=== PATIENT | female | born 2000 | race Caucasian/White ===

== ENCOUNTER 2024-03-28 12:55 | Inpatient (IN) | payer BC, SELFPAY ==
[2024-03-28] VITALS (32 sets, daily range): BP systolic 84–138; BP diastolic 44–69; PULSE 72–102; RESP 14–20; TEMP 36.5–36.6; O2SAT 94–100; BMI 21.7
--- NOTE | ~2024-03-28 | XR_ITS ---
EXAMINATION: XR chest PICC line DATE: 04/01/2024 10:42 INDICATION: Central line placement. TECHNIQUE: A single frontal view of the chest was obtained. COMPARISON: None. FINDINGS: There is no pneumonia, pleural effusion, or pneumothorax. The heart size is normal. A left upper extremity peripherally inserted central venous catheter (PICC) is seen with tip in the proximal right atrium. IMPRESSION: 1. PICC tip in the proximal right atrium. Reviewed, dictated and finalized at location E.
--- NOTE | ~2024-03-28 | XR_ITS ---
EXAMINATION: XR chest PICC line DATE: 04/01/2024 10:42 INDICATION: Central line tip adjustment. TECHNIQUE: A single frontal view of the chest was obtained. COMPARISON: Chest single view at 10:09 AM FINDINGS: There is no pneumonia, pleural effusion, or pneumothorax. The heart size is normal. A left upper extremity peripherally inserted central venous catheter (PICC) is seen with tip at the superior cavoatrial junction. IMPRESSION: 1. PICC tip at the superior cavoatrial junction. Reviewed, dictated and finalized at location E.
--- NOTE | ~2024-03-28 | US_ITS ---
EXAMINATION: US right upper quadrant DATE: 03/31/2024 08:05 INDICATION: Abnormal liver function tests. TECHNIQUE: Multiple grayscale and Doppler ultrasound images of the abdomen were obtained. COMPARISON: None FINDINGS: The visualized portions of the head, body, and tail of the pancreas are normal. Abdominal a najma is normal in caliber. There is diffuse hepatic steatosis. There is normal flow in main portal ve in. The gallbladder is normal in size. No gallstones or gallbladder wall thickening. There is no sono graphic Altamirano's sign. The common duct is normal and measures 2 mm. IMPRESSION: 1. Diffuse hepatic steatosis. Reviewed, dictated and finalized at location E.
--- NOTE | 2024-03-28 13:04 | ECG_ITS ---
SEE SCANNED COPY FOR CONFIRMED REPORT MTDD
--- NOTE | 2024-03-28 13:04 | ED.OVERDOSE ---
HPI - Overdose General Chief Complaint: Overdose Stated Complaint: Overdose History of Present Illness HPI Narrative: Patient is a 24-year-old female here after expressing suicidal thoughts and taking extra amounts of her medications. She notes that 4 hours ago, she took handfuls of her lamictal. She takes 200 mg tablets, last filled on 02/10/24. She is unsure of how many of these tablets she took. She also believes she may have taken extra seroquel. She is prescribed both 200 mg tablets as well as 25 mg tablets, she contradicts herself on which doses she took extra of and how many of them she may have taken. She states that she has been having nightmares in which she is in a coma and these tend to make her have suicidal thoughts. She adamantly denies attempting to kill herself today but she states that life is overwhelming and wanted to go to sleep ?for a while ?. She does note a prior suicide attempt in the past and will not disclose which facility she was placed in at that time. States she has not want to be placed in a psychiatric facility. On EMS arrival dad had disclosed that she was saying suicidal statements and she informed them that she took excessive amounts of her medications. Related Data Allergies Allergy/AdvReac Type Severity Reaction Status Date / Time Sulfa (Sulfonamide AdvReac Unknown Verified 03/28/24 16:22 Antibiotics) vancomycin AdvReac Other Verified 03/28/24 16:22 Review of Systems Review of Systems: All systems reviewed & are unremarkable except as noted in HPI and below Exam Narrative: GENERAL: Well-appearing, well-nourished, and in no acute distress. HEAD: Normocephalic, atraumatic. EYES: PERRLA and EOMI. ENT: Nares clear. Mucous membranes moist. NECK: Supple. CHEST: Clear to auscultation. No respiratory distress. HEART: Regular rate and rhythm. Normal peripheral pulses. ABDOMEN: Soft, nontender, nondistended. Bowel sounds slightly hypoactive. EXTREMITIES: Normal range of motion. No edema. SKIN: Warm, dry, no rash. NEURO: Appears to be drowsy but easily arousable and answers questions. No ocular clonus, no clonus of upper or lower extremities. No focal deficits. Alert and oriented x3. PSYCH: Normal mood and affect. Course Course Emergency Course: Patient seen evaluated on EMS arrival, she is here after overdosing on Seroquel and Lamictal. Will do workup for overdose including blood gas, EKG, basic lab work. Patient placed on telemetry. Lab work and imaging reviewed, CBC unremarkable, PT, PTT normal. Electrolytes grossly normal. Lactic mildly elevated at 2.7. Normal LFTs. TSH normal. UA negative. Salicylates normal, acetaminophen level 134. This is suspected to be a 4 hour draw, just below toxic levels requiring NAC. Will touch base with poison center. 8 hour level ordered. COVID, influenza, RSV negative. Repeat tylenol level at 7.5-8 hrs 351. Will start NAC. Spoke with Dr. Cline, advises she is stable for stepdown, will discuss with hospitalist service regarding admission. Spoke with Marcie from hospitalist service who accepts patient for admission. Vital Signs Vital signs: Vital Signs Pulse Rate 77 03/28/24 13:15 Respiratory Rate 17 03/28/24 13:15 Blood Pressure 87/56 L 03/28/24 13:15 Pulse Oximetry 97 03/28/24 13:15 Temperature 97.8 F 03/28/24 13:22 Pulse Rate 81 03/28/24 17:30 Respiratory Rate 17 03/28/24 17:30 Blood Pressure 129/61 03/28/24 17:30 Pulse Oximetry 96 03/28/24 17:30 Oxygen Delivery Room Air 03/28/24 13:44 MDM - Overdose Lab Data 03/28/24 13:41 03/28/24 13:40 Labs: Lab Results 03/28/24 03/28/24 03/28/24 Range/Units 13:40 13:41 16:17 WBC 8.1 (4.5-10.0) K/mm3 RBC 3.93 L (4.2-5.4) M/mm3 Hgb 12.4 (12.0-15.0) g/dL Hct 36.9 L (37.0-47.0) % MCV 93.9 (80-100) fl MCH 31.6 (26-34) pg MCHC 33.6 (32-36) g/dl RDW 14.6 H (11.5-14.5) % Plt Count
[2024-03-28 13:25] LABS: Fractional Inspired Oxygen 21 %; HCO3 VBG 20.5 mEq/l (24.0-30.0); PCO2 VBG 35.7 mmHg (42.0-48.0); PO2 VBG 61.5 mmHg (35.0-45.0); pH VBG 7.376 (7.300-7.400)
[2024-03-28 13:26] LABS: Device ROOM AIR
--- NOTE | 2024-03-28 13:46 | PC.NURSE ---
pt currently being uncooperative, unable to redirect. Pt has been educated on importance of keeping monitors on, and pt continues to take them off. Pt has been asked to keep arm straight for IV fluid administration and pt refuses.
[2024-03-28] MEDS: SODIUM CHLORIDE 0.9% IV 1,000 ML 999 ML IV CONT (13:49)
[2024-03-28 14:00] LABS: Basophils Absolute Auto 0.1 K/mm3 (0.0-0.1); Basophils Percent Auto 0.6 % (0.2-1.2); Eosinophils Percent Auto 0.2 % (0-4.4); Hematocrit 36.9 % (37.0-47.0); Hemoglobin 12.4 g/dL (12.0-15.0); Immature Granulocyte Absolute 0.02 K/mm3 (0.00-0.031); Immature Granulocyte Percent A 0.2 % (0-0.5); Lymphocytes Absolute Auto 0.95 K/mm3 (0.9-3.2); Lymphocytes Percent Auto 11.7 % (18.3-44.2); Mean Corpuscular HGB Conc 33.6 g/dl (32-36); Mean Corpuscular Hemoglobin 31.6 pg (26-34); Mean Corpuscular Volume 93.9 fl (80-100); Mean Platelet Volume 9.4 fl (7.4-10.4); Monocytes Absolute Auto 0.4 K/mm3 (0.1-0.6); Monocytes Percent Auto 4.6 % (2.6-8.5); Neutrophils Absolute Auto 6.7 K/mm3 (1.3-6.7); Neutrophils Percent Auto 82.7 % (45.5-73.1); Platelet Count Result 222 k/mm3 (150-375); Red Blood Count 3.93 M/mm3 (4.2-5.4); Red Cell Distribution Width 14.6 % (11.5-14.5); White Blood Count 8.1 K/mm3 (4.5-10.0)
--- NOTE | 2024-03-28 14:00 | PC.NURSE ---
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 Give IVF's.
[2024-03-28 14:04] LABS: Appearance Urine Clear (Clear); Bilirubin Urine Negative (Negative); Blood Urine Negative (Negative); Color Urine Yellow (Yellow); Glucose Urine UA Negative (Negative); Ketones Urine Negative (Negative); Leukocyte Esterase Ur Negative LEU/UL (Negative); Nitrate Urine Negative (Negative); Protein Urine Negative (Negative); Specific Grav Ur 1.009 (1.001-1.035); Urobilinogen Urine 0.2 mg/dL (<2.0)
[2024-03-28 14:10] LABS: INR 1.2; Partial Thromboplastin Time 23.4 Seconds (22.3-36.8); Prothrombin Time 15.7 Seconds (11.1-14.7)
[2024-03-28 14:13] LABS: Lactic Acid Reflex 2.7 mmol/L (0.7-2.0)
[2024-03-28 14:13] LABS: Alanine Aminotransferase 16 U/L (6-35); Albumin Level 4.3 g/dL (3.5-5.1); Alkaline Phosphatase 64 U/L (38-126); Anion Gap 13 mmol/L (4-12); Aspartate Amino Transferase 28 U/L (14-36); Bilirubin,Total 0.9 mg/dL (0.2-1.3); Blood Urea Nitrogen 13 mg/dL (7-17); Calcium 8.2 mg/dL (8.4-10.2); Carbon Dioxide 20 mmol/L (22-30); Chloride 107 mmol/L (98-107); Estimated CRCL calculation 61 ml/min; Estimated Glomerular Filt Rate > 60; Glucose 106 mg/dL (65-110); Magnesium 1.9 mg/dL (1.6-2.3); Potassium 3.6 mmol/L (3.4-5.0); Sodium 140 mmol/L (137-145)
[2024-03-28 14:19] LABS: Add Urine Microscopic? NO
[2024-03-28 14:22] LABS: Amphetamine Screen Urine Negative (Negative); Barbiturate Screen Urine Negative (Negative); Benzodiazepines Screen Urine Negative (Negative); Cannabinoid Screen Urine Positive (Negative); Cocaine Screen Urine Negative (Negative); Methadone Screen Urine Negative (Negative); Opiate Screen Urine Negative (Negative); Phencyclidine Screen Urine Negative (Negative)
[2024-03-28] MEDS: LORazepam INJ (*CRX) 2 MG/ML VIAL IV PUSH (14:36)
[2024-03-28 14:42] LABS: Influenza A QL RT-PCR Negative (Negative); Influenza B QL RT-PCR Negative (Negative); RSV RNA, RT-PCR Negative (Negative); SARS-CoV-2 RNA PCR Negative (Negative)
[2024-03-28 14:44] LABS: Thyroid Stimulating Hormone 0.977 uIU/mL (0.465-4.680)
--- NOTE | 2024-03-28 15:09 | PC.NURSE ---
Spoke to Poison control who states continue to monitor pt, add on salicylate, acetaminophen, and etoh levels to lab.
[2024-03-28 15:17] LABS: Acetaminophen 134 ug/mL (10-30); Ethanol 133 mg/dL (<10); Salicylate < 1.0 mg/dL (2-20)
--- NOTE | 2024-03-28 16:23 | PC.NURSE ---
Spoke with Poison control , Uma about the acetaminophen level. 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 Get another acetaminophen level at the 8 hour alec. 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 Case Number is [id number]
[2024-03-28 16:58] LABS: Reflex Lactic Acid Yes or No Add Lactic
[2024-03-28 16:58] LABS: Acetaminophen 351 ug/mL (10-30)
[2024-03-28 17:27] LABS: Creatine Kinase 80 U/L (30-135)
[2024-03-28] MEDS: WATER IVPB ×2 (17:31→18:37)
[2024-03-28] MEDS: ACETYLCYSTEINE IVPB ×2 (17:31→18:37)
[2024-03-28] MEDS: DEXTROSE 5% IVPB ×2 (17:31→18:37)
[2024-03-28 17:43] LABS: Lactic Acid 1.9 mmol/L (0.7-2.0)
--- NOTE | 2024-03-28 18:46 | PC.NURSE ---
[id number] spoke with Uma from poison control who states they recommend rechecking acetaminophen, pt/inr/ptt, AST, and ALT levels q6-8. they also recommend checking an acetaminophen level 2 hours prior to the last acetylcysteine bag ending to know if further treatment is needed. The recommended dosage for her current acetaminophen level is 12.5 mg/kg.
--- NOTE | 2024-03-28 19:14 | PC.NURSE ---
[id number] attempted to call report [id number] report called to night rn
--- NOTE | 2024-03-28 19:45 | ADMIMU ---
This patient, Jolanta Yen, was admitted to IMU status, and placed in Intensive Care Unit-3. Patient/family oriented to hospital policies and general routines including ID bracelet, bed and alarms, visiting hours, pain management, procedures, bathroom and other care routines, personal items, smoking policy, room service/diet, and visiting hours. Valuables list has been completed. Information on how to activate the Rapid Response Team has been discussed. Patient/Family are encouraged to report perceived risks to care and to ask questions if they do not understand what they are told or what they should do. pT PLACED ON SUICIDE PRECAUTIONS SITTER AT BEDSIDE
--- NOTE | 2024-03-28 22:14 | PM.IMHP ---
H&P: HPI History of Present Illness Date/Time: 03/28/24 22:14 Chief Complaint: drug overdose Narrative: patient is a 24-year-old female who expresses suicidal thoughts ended up taking a handful of Lamictal and Seroquel and Tylenol patient was prescribed both these medications patient not able to give us any detailed history most of the history is obtained through the medical records on the time of examining the patient patient is very sleepy is on suicidal alert with a 24 hour sitter Review of Systems Review of Systems: All systems reviewed & are unremarkable except as noted in HPI and below PMFSH Social History Social History Smoking status: Never smoker Alcohol intake: current Substance use: current Substance use type: marijuana Spiritual care concerns: No Meds Home Medications and Allergies Home Medications Medication Instructions Recorded Confirmed Type clonidine HCl 0.1 mg tablet 0.1 mg PO BID 03/28/24 03/28/24 History escitalopram oxalate 5 mg tablet 5 mg PO DAILY 03/28/24 03/28/24 History lamotrigine 200 mg tablet 200 mg PO BID 03/28/24 03/28/24 History quetiapine 200 mg tablet 200 mg PO HS 03/28/24 03/28/24 History Allergies Allergy/AdvReac Type Severity Reaction Status Date / Time Sulfa (Sulfonamide AdvReac Unknown Verified 03/28/24 16:22 Antibiotics) vancomycin AdvReac Other Verified 03/28/24 16:22 Vital Signs Vital Signs - 24 hr 03/28/24 13:22 03/28/24 13:41 03/28/24 13:44 Temperature 36.6 C Pulse Rate 83 Respiratory Rate 14 16 Blood Pressure 84/69 L Pulse Oximetry 100 Oxygen Delivery Room Air Room Air 03/28/24 14:01 03/28/24 13:15 03/28/24 13:45 Temperature Pulse Rate 102 H 77 89 Respiratory Rate 18 17 20 Blood Pressure 97/52 L 87/56 L 115/62 Pulse Oximetry 96 97 97 Oxygen Delivery 03/28/24 14:00 03/28/24 14:15 03/28/24 14:30 Temperature Pulse Rate 91 86 81 Respiratory Rate 18 19 19 Blood Pressure 97/52 L 121/48 L 106/44 L Pulse Oximetry 96 96 96 Oxygen Delivery 03/28/24 14:45 03/28/24 15:10 03/28/24 15:33 Temperature Pulse Rate 83 77 83 Respiratory Rate 19 17 16 Blood Pressure 105/47 L Pulse Oximetry 98 95 95 Oxygen Delivery 03/28/24 15:50 03/28/24 16:00 03/28/24 16:15 Temperature Pulse Rate 79 80 80 Respiratory Rate 16 16 16 Blood Pressure 107/46 L 112/52 L Pulse Oximetry 95 95 95 Oxygen Delivery 03/28/24 16:30 03/28/24 16:45 03/28/24 17:00 Temperature Pulse Rate 83 81 85 Respiratory Rate 16 17 16 Blood Pressure 117/53 L 123/53 L 121/54 L Pulse Oximetry 95 96 96 Oxygen Delivery 03/28/24 17:15 03/28/24 17:30 03/28/24 16:01 Temperature Pulse Rate 80 81 80 Respiratory Rate 17 17 17 Blood Pressure 127/54 L 129/61 107/46 L Pulse Oximetry 96 96 95 Oxygen Delivery 03/28/24 16:16 03/28/24 16:31 03/28/24 16:55 Temperature Pulse Rate 80 81 81 Respiratory Rate 16 16 16 Blood Pressure 112/52 L 117/53 L Pulse Oximetry 95 96 96 Oxygen Delivery 03/28/24 17:00 03/28/24 17:01 03/28/24 17:47 Temperature Pulse Rate 81 80 78 Respiratory Rate 16 16 16 Blood Pressure 121/54 L 120/54 L Pulse Oximetry 96 96 99 Oxygen Delivery 03/28/24 18:00 03/28/24 18:15 03/28/24 18:30 Temperature Pulse Rate 77 81 82 Respiratory Rate 16 16 16 Blood Pressure 121/57 L 132/62 138/69 Pulse Oximetry 96 97 94 Oxygen Delivery 03/28/24 19:45 03/28/24 19:47 03/28/24 20:00 Temperature 36.5 C Pulse Rate 82 84 72 Respiratory Rate 16 16 Blood Pressure 94/46 L Pulse Oximetry 94 96 Oxygen Delivery Room Air 03/28/24 21:48 Temperature Pulse Rate 80 Respiratory Rate Blood Pressure Pulse Oximetry Oxygen Delivery Exam Narrative: GENERAL: Well appearing, no acute distress. very sleepy HEAD: Normocephalic, atraumatic. NECK: Supple. No adenopathy, no masses. RESPIRATORY: respirations nonlabored. , no rales, wheezing. CARDIOVASCULAR: Reg
[2024-03-29] VITALS (16 sets, daily range): BP systolic 89–128; BP diastolic 49–85; PULSE 62–89; RESP 12–22; TEMP 36.6–36.8; O2SAT 90–100
[2024-03-29 05:42] LABS: Hematocrit 36.1 % (37.0-47.0); Mean Corpuscular HGB Conc 33.2 g/dl (32-36); Mean Corpuscular Hemoglobin 31.4 pg (26-34); Mean Corpuscular Volume 94.5 fl (80-100); Mean Platelet Volume 8.9 fl (7.4-10.4); Platelet Count Result 179 k/mm3 (150-375); Red Blood Count 3.82 M/mm3 (4.2-5.4); Red Cell Distribution Width 14.5 % (11.5-14.5); White Blood Count 3.4 K/mm3 (4.5-10.0)
[2024-03-29 05:57] LABS: Alanine Aminotransferase 26 U/L (6-35); Albumin Level 3.7 g/dL (3.5-5.1); Alkaline Phosphatase 56 U/L (38-126); Anion Gap 7 mmol/L (4-12); Aspartate Amino Transferase 56 U/L (14-36); Bilirubin,Total 1.4 mg/dL (0.2-1.3); Blood Urea Nitrogen 7 mg/dL (7-17); Calcium 8.2 mg/dL (8.4-10.2); Carbon Dioxide 19 mmol/L (22-30); Chloride 108 mmol/L (98-107); Estimated CRCL calculation 97 ml/min; Estimated Glomerular Filt Rate > 60; Glucose 153 mg/dL (65-110); Potassium 3.3 mmol/L (3.4-5.0); Sodium 134 mmol/L (137-145)
[2024-03-29 06:01] LABS: Acetaminophen 207 ug/mL (10-30)
--- NOTE | 2024-03-29 13:25 | PM.IMPN ---
Progress Note: A&P Assessment and Plan (1) Acute drug overdose: Qualifiers: Encounter type: initial encounter Injury intent: intentional self-harm Qualified Code(s): T50.902A - Poisoning by unspecified drugs, medicaments and biological substances, intentional self-harm, initial encounter Code(s): T50.901A - Poisoning by unspecified drugs, medicaments and biological substances, accidental (unintentional), initial encounter Status: Acute Assessment and Plan: Patient overdosed with Lamictal, Seroquel and Tylenol. QTC was 451. EKG overall was normal. Repeat EKG. Continue close monitoring on telemetry. Crisis evaluation once patient is cleared medically (2) Overdose on Tylenol: Qualifiers: Encounter type: initial encounter Injury intent: intentional self-harm Qualified Code(s): T39.1X2A - Poisoning by 4-Aminophenol derivatives, intentional self-harm, initial encounter Code(s): T39.1X1A - Poisoning by 4-Aminophenol derivatives, accidental (unintentional), initial encounter Status: Acute Assessment and Plan: Patient with Tylenol overdose. Patient started on acetylcysteine. Acetaminophen level has dropped to 200. Continue Tylenol overdose protocol. Repeat LFTs. (3) Seizure: Code(s): R56.9 - Unspecified convulsions Status: Acute Assessment and Plan: Patient with seizure history on Lamictal. This is currently on hold due to recent overdose. Seizure precautions. 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 No residual problem except did develop seizures. Patient graduated from high school and is currently taking undergraduate classes. She was living alone up until December and has since moved in with her father. Plan Code status - full DVT prophylaxis - SCDs Subjective Date/time seen: 03/29/24 13:25 Interval history: 24yo female here for intentional drug overdose with Seroquel, Lamictal and Tylenol. She has been up to the bathroom and less unsteady today per RN. She admits to overdosing leona suicide attempt. She has had suicidal thoughts in the past but states this is the first time she has acted (but notes state she had a suicide attempt in the past. She feels safe at home. Back at home with dad since December. Dad had recent divorce. Right arm fracture related to her falling down the stairs. Hx of [facility] hospitalization for suicide ideation. PMH: at age 10 had hemorrhagic CVA from brain AVM, seizures, depression, PSH: craniotomy SH: marijuana but no other drug use, no tobacco. Exam Narrative: AF 98.0 109/81 62 14 98% ra Gen - NARD HEENT - nystagmus noted. Chest - CTA bilaterally, nml RR CV - RRR S1/S2 Abd - Soft, NT/ND, Positive BS Ext - No pedal edema. right arm in cast. Neuro - Alert and oriented. Nonfocal exam. Psych - Nml mood and affect. unkempt. good eye contact Skin - Warm and dry. multiple bruising noted UE/LE Objective Data Vital Signs Vital Signs: Vital Signs - 24 hr 03/28/24 13:41 03/28/24 13:44 03/28/24 14:01 Temperature Pulse Rate 102 H Respiratory Rate 16 18 Blood Pressure 97/52 L Pulse Oximetry 96 Oxygen Delivery Room Air Oxygen Flow Rate 03/28/24 13:45 03/28/24 14:00 03/28/24 14:15 Temperature Pulse Rate 89 91 86 Respiratory Rate 20 18 19 Blood Pressure 115/62 97/52 L 121/48 L Pulse Oximetry 97 96 96 Oxygen Delivery Oxygen Flow Rate 03/28/24 14:30 03/28/24 14:45 03/28/24 15:10 Temperature Pulse Rate 81 83 77 Respiratory Rate 19 19 17 Blood Pressure 106/44 L 105/47 L Pulse Oximetry 96 98 95 Oxygen Delivery Oxygen Flow Rat
--- NOTE | 2024-03-29 13:54 | ECG_ITS ---
SEE SCANNED COPY FOR CONFIRMED REPORT MTDD
[2024-03-29 15:58] LABS: Acetaminophen 71 ug/mL (10-30)
[2024-03-29 16:08] LABS: Alanine Aminotransferase 1061 U/L (6-35); Alkaline Phosphatase 79 U/L (38-126); Anion Gap 7 mmol/L (4-12); Bilirubin Direct 0.1 mg/dL (0-0.3); Bilirubin,Total 3.3 mg/dL (0.2-1.3); Blood Urea Nitrogen 6 mg/dL (7-17); Calcium 8.8 mg/dL (8.4-10.2); Carbon Dioxide 19 mmol/L (22-30); Chloride 109 mmol/L (98-107); Estimated CRCL calculation 75 ml/min; Estimated Glomerular Filt Rate > 60; Glucose 104 mg/dL (65-110); Potassium 3.4 mmol/L (3.4-5.0); Sodium 135 mmol/L (137-145)
[2024-03-29 16:35] LABS: Aspartate Amino Transferase 2778 U/L (14-36)
--- NOTE | 2024-03-29 18:37 | PC.NURSE ---
discussed with poison control lab results and was told to start the 4rth bag of acetylcysteine and continue it until poison control states to stop and conitnue labs tylenol, cmp and hep panel q12hrs until cleard by poison control
[2024-03-29 22:40] LABS: Hematocrit 41.2 % (37.0-47.0); Hemoglobin 13.8 g/dL (12.0-15.0); Mean Corpuscular HGB Conc 33.5 g/dl (32-36); Mean Corpuscular Hemoglobin 31.4 pg (26-34); Mean Corpuscular Volume 93.8 fl (80-100); Mean Platelet Volume 9.4 fl (7.4-10.4); Platelet Count Result 219 k/mm3 (150-375); Red Blood Count 4.39 M/mm3 (4.2-5.4); Red Cell Distribution Width 14.2 % (11.5-14.5); White Blood Count 5.7 K/mm3 (4.5-10.0)
[2024-03-29 23:02] LABS: Albumin Level 4.3 g/dL (3.5-5.1); Alkaline Phosphatase 123 U/L (38-126); Anion Gap 10 mmol/L (4-12); Blood Urea Nitrogen 7 mg/dL (7-17); Carbon Dioxide 20 mmol/L (22-30); Chloride 108 mmol/L (98-107); Estimated CRCL calculation 75 ml/min; Estimated Glomerular Filt Rate > 60; Glucose 108 mg/dL (65-110); Potassium 3.4 mmol/L (3.4-5.0); Sodium 138 mmol/L (137-145)
[2024-03-29 23:04] LABS: Alanine Aminotransferase 1393 U/L (6-35)
[2024-03-29 23:11] LABS: Aspartate Amino Transferase 2849 U/L (14-36)
[2024-03-30] VITALS (12 sets, daily range): BP systolic 118–128; BP diastolic 68–87; PULSE 63–94; RESP 16; TEMP 36.6–36.8; O2SAT 97–99
[2024-03-30 04:12] LABS: Acetaminophen 18 ug/mL (10-30)
[2024-03-30 04:23] LABS: Albumin Level 4.4 g/dL (3.5-5.1); Alkaline Phosphatase 221 U/L (38-126); Anion Gap 8 mmol/L (4-12); Bilirubin Direct 0.9 mg/dL (0-0.3); Bilirubin,Total 4.1 mg/dL (0.2-1.3); Blood Urea Nitrogen 8 mg/dL (7-17); Carbon Dioxide 22 mmol/L (22-30); Chloride 107 mmol/L (98-107); Estimated CRCL calculation 75 ml/min; Estimated Glomerular Filt Rate > 60; Glucose 79 mg/dL (65-110); Potassium 3.7 mmol/L (3.4-5.0); Sodium 137 mmol/L (137-145)
[2024-03-30 04:31] LABS: Alanine Aminotransferase 1525 U/L (6-35); Aspartate Amino Transferase 2681 U/L (14-36)
--- NOTE | 2024-03-30 08:55 | PM.IMPN ---
Progress Note: A&P Assessment and Plan (1) Acute drug overdose: Qualifiers: Encounter type: initial encounter Injury intent: intentional self-harm Qualified Code(s): T50.902A - Poisoning by unspecified drugs, medicaments and biological substances, intentional self-harm, initial encounter Code(s): T50.901A - Poisoning by unspecified drugs, medicaments and biological substances, accidental (unintentional), initial encounter Status: Acute Assessment and Plan: Patient overdosed with Lamictal, Seroquel and Tylenol. QTC was 451. EKG overall was normal. Repeat EKG showing QTc 408. Continue close monitoring on telemetry. Crisis evaluation once patient is cleared medically (2) Overdose on Tylenol: Qualifiers: Encounter type: initial encounter Injury intent: intentional self-harm Qualified Code(s): T39.1X2A - Poisoning by 4-Aminophenol derivatives, intentional self-harm, initial encounter Code(s): T39.1X1A - Poisoning by 4-Aminophenol derivatives, accidental (unintentional), initial encounter Status: Acute Assessment and Plan: Patient with Tylenol overdose. Patient started on acetylcysteine. Acetaminophen level was up to 351 but has dropped to 18 now LFTs markedly elevated last night and this morning felt related to the Tylenol AST peaked at 2850 but better today. ALT still climbing to 1525. TBili 4.1 today. Continue Tylenol overdose protocol. Monitor LFTs. GI consult. Check hepatitis panel and RUQ for completeness. (3) Elevated LFTs: Code(s): R79.89 - Other specified abnormal findings of blood chemistry Status: Acute Assessment and Plan: As above (4) Seizure: Code(s): R56.9 - Unspecified convulsions Status: Acute Assessment and Plan: Patient with seizure history on Lamictal. This is currently on hold due to recent overdose. Seizure precautions. 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 No residual problem except did develop seizures. Patient graduated from high school and is currently taking undergraduate classes. She was living alone up until December and has since moved in with her father. Plan Code status - full DVT prophylaxis - SCDs Subjective Date/time seen: 03/30/24 08:55 Interval history: 24yo female here for intentional drug overdose with Seroquel, Lamictal and Tylenol. Nausea with dry heaves started last night and this morning 'related to anxiety'. She takes Zofran at home for this. no CP, SOB or abd pain. +BMs and normal color. no hx of hepatitis. She states that she did a 'Pros and Cons' list to determine if she should take her life and feels there are more 'Pros' if she were . Exam Narrative: AF 97.9 126/85 67 16 99% ra Gen - NARD Chest - CTA bilaterally, nml RR CV - RRR S1/S2. Tele showing no significant dysrhythmia Abd - Soft, RUQ tenderness. +BS Ext - No pedal edema. right arm in cast. Neuro - Alert and oriented. Nonfocal exam. normal sensation to the right fingers. 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 unkempt. good eye contact. more appropriate today. Skin - Warm and dry. multiple bruising noted UE/LE Objective Data Vital Signs Vital Signs: Vital Signs - 24 hr 03/29/24 10:00 03/29/24 12:00 03/29/24 12:00 Temperature 98 F Pulse Rate 69 62 62 Respiratory Rate 14 Blood Pressure 109/81 Pulse Oximetry 98 Oxygen Delivery 03/29/24 12:00 03/29/24 14:00 03/29/24 16:00 Temperature Pulse Rate 62 68 69 Respiratory Rate 14 Blood Pressure Pulse Oximetry 98 Oxygen Delivery Room Air 03/29/24 16:00 03/29/24 16:00
--- NOTE | 2024-03-30 13:48 | WPDGICN ---
Assessment and Plan Assessment and plan (1) Overdose on Tylenol: Qualifiers: Encounter type: initial encounter Injury intent: intentional self-harm Qualified Code(s): T39.1X2A - Poisoning by 4-Aminophenol derivatives, intentional self-harm, initial encounter Code(s): T39.1X1A - Poisoning by 4-Aminophenol derivatives, accidental (unintentional), initial encounter Status: Acute Assessment and Plan: she took some of her psych medications but also over 6000mg of acetaminophen control poison was called, continue with mucomyst- recommend to keep mucomyst until we see downtrending liver enzymes. Will repeat INR and also get ammonia lever. If liver enzymes continue to go up or she develops coagulopathy or confusion then will need to transfer to tertiary hospital with hepatology service continue suicidal precaution (2) Acute drug overdose: Qualifiers: Encounter type: initial encounter Injury intent: intentional self-harm Qualified Code(s): T50.902A - Poisoning by unspecified drugs, medicaments and biological substances, intentional self-harm, initial encounter Code(s): T50.901A - Poisoning by unspecified drugs, medicaments and biological substances, accidental (unintentional), initial encounter Status: Acute (3) Liver failure, acute: Code(s): K72.00 - Acute and subacute hepatic failure without coma Status: Acute Assessment and Plan: due to tylenol overdose monitor liver enzymes and inr get hepatitis panel and liver ultrasound (4) Suicidal overdose: Code(s): T50.902A - Poisoning by unspecified drugs, medicaments and biological substances, intentional self-harm, initial encounter Status: Acute (5) Elevated LFTs: Code(s): R79.89 - Other specified abnormal findings of blood chemistry Status: Acute GI Consult Note Consult date/time: 03/30/24 13:48 Reason for consult: acute liver failure, acetaminophen overdose HPI: Jolatna Yen is a 24 year old female here after expressing suicidal thoughts and taking extra amounts of her medications, at baseline she has mood disorder using lamictal and seroquel. She says that took handful of her medications then found by her dad who called ems and brought to hospital. She was not forthcoming about what she else she took initially but drug screening noted elevated acetaminophen level at 350, then she said that took at least 6000 mg of acetaminophen, admitted to ICU and started right away on iv mucomyst. She mentioned earlier to another staff that she has been having nightmares in which she is in a coma and these tend to make her have suicidal thoughts.?Liver enzymes have been trending up with transaminases now ~ 2000, bili 4. She is nauseous but denies pain, no confusion. She is in suicidal precaution, never tried to commit suicide before. Review of Systems Constitutional: Constitutional: Denies chills Eyes: Eyes: Denies blurry vision ENT: Reports Normal hearing present Cardiovascular: Cardiovascular: Denies chest pain Respiratory: Respiratory: Denies cough Gastrointestinal: Gastrointestinal: Reports nausea Genitourinary: Genitourinary: Denies hematuria Musculoskeletal: Musculoskeletal: Denies arthralgias Integumentary/Breasts: Skin/Breast: Denies rash Neurologic: Denies Abnormal speech present Psychiatric: Psychiatric: Reports depression and Reports suicidal ideation [facility] Past Medical History Medical History (Updated 03/30/24 @ 13:55 by Sky North MD) Liver failure, acute Suicidal overdose Social History Social History Smoking status: Never smoker Alcohol intake: current Substance use: current Substance use type: marijuana Spiritual care concerns: No Meds Home Medications and Allergies Home Medications Medication Instructions Recorded Confirmed Type clonidine HCl 0.1 mg tablet 0.1 mg PO BID 03/28/24 03/28/24 History escitalopram oxalate
[2024-03-30 16:01] LABS: Albumin Level 4.6 g/dL (3.5-5.1); Alkaline Phosphatase 154 U/L (38-126); Anion Gap 8 mmol/L (4-12); Bilirubin Direct 0.4 mg/dL (0-0.3); Bilirubin,Total 4.6 mg/dL (0.2-1.3); Blood Urea Nitrogen 4 mg/dL (7-17); Calcium 8.8 mg/dL (8.4-10.2); Carbon Dioxide 22 mmol/L (22-30); Chloride 106 mmol/L (98-107); Estimated CRCL calculation 97 ml/min; Estimated Glomerular Filt Rate > 60; Glucose 103 mg/dL (65-110); Potassium 3.1 mmol/L (3.4-5.0); Sodium 136 mmol/L (137-145)
[2024-03-30 16:10] LABS: Alanine Aminotransferase 1696 U/L (6-35); Aspartate Amino Transferase 2132 U/L (14-36)
[2024-03-30 16:14] LABS: Hepatitis B Surface Antigen Negative (Negative)
[2024-03-30 16:19] LABS: HAV RESULT Negative (Negative); Hepatitis B Core IgM Result Negative (Negative)
[2024-03-30 16:31] LABS: Hepatitis C Virus Antibody Negative (Negative)
--- NOTE | 2024-03-30 16:49 | PC.NURSE ---
poison control talked to this nurse, stated for pt to stay on Acetylcysteine and obtain same labs in am and wait until poison control states to shut off gtt
[2024-03-30] MEDS: POTASSIUM CHLORIDE 20 MEQ ER TABLET 40 MEQ PO (17:51)
[2024-03-30 21:16] LABS: Acetaminophen < 10 ug/mL (10-30)
[2024-03-30] MEDS: MELATONIN 3 MG TABLET PO (23:23)
[2024-03-31] VITALS (15 sets, daily range): BP systolic 114–142; BP diastolic 71–90; PULSE 73–112; RESP 16–20; TEMP 36.7–37; O2SAT 96–100
[2024-03-31 04:05] LABS: Basophils Percent Auto 0.5 % (0.2-1.2); Eosinophils Percent Auto 0.5 % (0-4.4); Hemoglobin 14.4 g/dL (12.0-15.0); Immature Granulocyte Absolute 0.01 K/mm3 (0.00-0.031); Immature Granulocyte Percent A 0.2 % (0-0.5); Lymphocytes Absolute Auto 0.67 K/mm3 (0.9-3.2); Lymphocytes Percent Auto 11.1 % (18.3-44.2); Mean Corpuscular HGB Conc 34.3 g/dl (32-36); Mean Corpuscular Hemoglobin 31.2 pg (26-34); Mean Corpuscular Volume 90.9 fl (80-100); Mean Platelet Volume 9.7 fl (7.4-10.4); Monocytes Absolute Auto 0.2 K/mm3 (0.1-0.6); Neutrophils Absolute Auto 5.1 K/mm3 (1.3-6.7); Neutrophils Percent Auto 84.7 % (45.5-73.1); Platelet Count Result 183 k/mm3 (150-375); Red Blood Count 4.62 M/mm3 (4.2-5.4); Red Cell Distribution Width 14.4 % (11.5-14.5)
[2024-03-31 04:17] LABS: INR 2.3; Prothrombin Time 26.9 Seconds (11.1-14.7)
[2024-03-31 04:18] LABS: Partial Thromboplastin Time 30.4 Seconds (22.3-36.8)
[2024-03-31] MEDS: ONDANSETRON INJ 4 MG/2 ML VIAL (04:20)
[2024-03-31 04:23] LABS: Acetaminophen < 10 ug/mL (10-30)
[2024-03-31 04:25] LABS: Ammonia 30 umol/L (9-30)
[2024-03-31 04:30] LABS: Alkaline Phosphatase 104 U/L (38-126); Anion Gap 7 mmol/L (4-12); Bilirubin Direct 0.2 mg/dL (0-0.3); Bilirubin Indirect 3.5 mg/dL (0-1.1); Bilirubin,Total 4.4 mg/dL (0.2-1.3); Blood Urea Nitrogen 3 mg/dL (7-17); Calcium 8.4 mg/dL (8.4-10.2); Carbon Dioxide 22 mmol/L (22-30); Chloride 106 mmol/L (98-107); Estimated CRCL calculation 97 ml/min; Estimated Glomerular Filt Rate > 60; Glucose 116 mg/dL (65-110); Magnesium 1.8 mg/dL (1.6-2.3); Potassium 3.4 mmol/L (3.4-5.0); Sodium 135 mmol/L (137-145)
[2024-03-31 05:08] LABS: Alanine Aminotransferase 3083 U/L (6-35)
[2024-03-31 05:12] LABS: Aspartate Amino Transferase 5477 U/L (14-36)
--- NOTE | 2024-03-31 08:15 | PM.IMPN ---
Progress Note: A&P Assessment and Plan (1) Overdose on Tylenol: Qualifiers: Encounter type: initial encounter Injury intent: intentional self-harm Qualified Code(s): T39.1X2A - Poisoning by 4-Aminophenol derivatives, intentional self-harm, initial encounter Code(s): T39.1X1A - Poisoning by 4-Aminophenol derivatives, accidental (unintentional), initial encounter Status: Acute Assessment and Plan: Patient with Tylenol overdose. Patient started on acetylcysteine on 03/28 at 1730. Acetaminophen level was up to 351 (03/28 at 1617) but has dropped to <10 AST peaked at 2850 but began to trend down. ALT and TBili elevated and continued to climb. Fractioned bili showing almost all indirect Poison control contacted multiple times and we continued her on acetylcysteine GI consulted and appreciate their input. Hepatitis panel negative. RUQ diffuse hepatic steatosis. Liver enzymes much worse today with AST 5477 and ALT 3083. Tbili slightly better at 4.4 (indirect 3.5). Ammonia 30 and INR 2.3. Continue acetylcysteine. Plan for transfer to tertiary center. Patient made aware and all questions answered. Discussed with father by phone with patient's permission and all questions answered. (2) Acute drug overdose: Qualifiers: Encounter type: initial encounter Injury intent: intentional self-harm Qualified Code(s): T50.902A - Poisoning by unspecified drugs, medicaments and biological substances, intentional self-harm, initial encounter Code(s): T50.901A - Poisoning by unspecified drugs, medicaments and biological substances, accidental (unintentional), initial encounter Status: Acute Assessment and Plan: Patient overdosed with Lamictal, Seroquel and Tylenol around 9AM 03/28. Unclear on how much she took with contradictory amounts. QTC was 451. EKG overall was normal. Repeat EKG (03/29) showing QTc 408. Continue close monitoring on telemetry. (3) Liver failure, acute: Code(s): K72.00 - Acute and subacute hepatic failure without coma Status: Acute Assessment and Plan: As above (4) Seizure: Code(s): R56.9 - Unspecified convulsions Status: Acute Assessment and Plan: Patient with seizure history on Lamictal. This is currently on hold due to recent overdose. Seizure precautions. 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 No residual problem except did develop seizures. Patient graduated from high school and is currently taking undergraduate classes. She was living alone up until December and has since moved in with her father. (6) Suicidal overdose: Code(s): T50.902A - Poisoning by unspecified drugs, medicaments and biological substances, intentional self-harm, initial encounter Status: Acute Assessment and Plan: As above Crisis evaluation once patient is cleared medically Plan Code status - full DVT prophylaxis - SCDs Subjective Date/time seen: 03/31/24 08:15 Interval history: 24yo female here for intentional drug overdose with Seroquel, Lamictal and Tylenol. Some nausea overnight but not this morning. No further abdominal pain but some cramping related to her period. No CP or SOB. Tolerating oral intake but not eating much. Exam Narrative: AF 97.9 126/85 67 16 99% ra Gen - NARD Chest - CTA bilaterally, nml RR CV - RRR S1/S2. Tele showing no significant dysrhythmia Abd - Soft, NT/ND. +BS Ext - No pedal edema. right arm in cast. Neuro - Alert and oriented. Nonfocal exam. Psych - Nml mood and affect. Skin - Warm and dry. Not jaundiced Objective Data Vital Signs
--- NOTE | 2024-03-31 11:45 | WPDGIPROGNO ---
Progress Note: A&P Assessment and Plan (1) Liver failure, acute: Code(s): K72.00 - Acute and subacute hepatic failure without coma Status: Acute Assessment and Plan: here with acute liver damage from tylenol overdose recommend to continue iv mucomyst until bilirubin and INR improves [facility] already accepted transfer, will need hepatology service in case worsening liver failure that requires liver transplant (2) Overdose on Tylenol: Qualifiers: Encounter type: initial encounter Injury intent: intentional self-harm Qualified Code(s): T39.1X2A - Poisoning by 4-Aminophenol derivatives, intentional self-harm, initial encounter Code(s): T39.1X1A - Poisoning by 4-Aminophenol derivatives, accidental (unintentional), initial encounter Status: Acute (3) Elevated LFTs: Code(s): R79.89 - Other specified abnormal findings of blood chemistry Status: Acute Assessment and Plan: monitor with daily inr and ammonia level (4) Suicidal overdose: Code(s): T50.902A - Poisoning by unspecified drugs, medicaments and biological substances, intentional self-harm, initial encounter Status: Acute (5) Elevated INR: Code(s): R79.1 - Abnormal coagulation profile Status: Acute Subjective Date/time seen: 03/31/24 11:45 Interval history: she is very anxious after realized that she has liver impairment no abdominal pain, no confusion Review of Systems Review of Systems: All systems reviewed & are unremarkable except as noted in HPI and below Exam Const: General: comfortable and no acute distress HENMT: Face/Nose/Sinus: Normal nares present Eyes: General: appearance normal, both eyes and all related structures Neck: Neck: no JVD Resp: Auscultation: clear to auscultation bilaterally Cardio: Rate: regular rate Rhythm: regular rhythm GI: Inspection: non-distended GI Palp: Yes Soft to palpation and No Tenderness to palpation present (GI) Auscultation: normal bowel sounds Skin: General skin exam: normal color Neuro: Speech: normal speech Motor exam (neuro): 5/5 motor strength present throughout Extrem: General: normal to inspection Psych: Affect: Sad affect present and Anxious affect present Objective Data Vital Signs Vital Signs: Vital Signs - 24 hr 03/30/24 12:00 03/30/24 12:00 03/30/24 12:00 Temperature 98.3 F Pulse Rate 84 70 70 Respiratory Rate 16 16 Blood Pressure 128/75 Pulse Oximetry 98 98 Oxygen Delivery Room Air 03/30/24 14:00 03/30/24 16:00 03/30/24 16:00 Temperature 98.2 F Pulse Rate 78 85 85 Respiratory Rate 16 Blood Pressure 121/68 Pulse Oximetry 97 Oxygen Delivery 03/30/24 16:00 03/30/24 18:00 03/30/24 20:00 Temperature 98.2 F Pulse Rate 85 77 93 Respiratory Rate 16 16 Blood Pressure 124/87 Pulse Oximetry 97 98 Oxygen Delivery Room Air 03/30/24 20:00 03/30/24 20:00 03/30/24 22:00 Temperature Pulse Rate 80 94 Respiratory Rate Blood Pressure Pulse Oximetry Oxygen Delivery Room Air 03/31/24 00:00 03/31/24 00:00 03/31/24 00:00 Temperature 98.3 F Pulse Rate 83 83 Respiratory Rate 16 Blood Pressure 128/84 Pulse Oximetry 99 Oxygen Delivery Room Air 03/31/24 02:00 03/31/24 04:00 03/31/24 04:00 Temperature 98.5 F Pulse Rate 73 102 H Respiratory Rate 18 Blood Pressure 114/76 Pulse Oximetry 98 Oxygen Delivery Room Air 03/31/24 04:00 03/31/24 06:00 03/31/24 07:44 Temperature 98.6 F Pulse Rate 85 76 112 H Respiratory Rate 16 Blood Pressure 122/71 Pulse Oximetry 97 Oxygen Delivery 03/31/24 08:00 03/31/24 08:00 Temperature Pulse Rate 81 Respiratory Rate Blood Pressure Pulse Oximetry Oxygen Delivery Room Air Intake/Output Intake/Output: Intake & Output 03/28/24 03/29/24 03/30/24 03/31/24 23:59 23:59 23:59 23:59 Intake Total 1754.0 1177.0 1680 1243.5 Output Total 1150 701 Balance 175
[2024-03-31] MEDS: ONDANSETRON INJ 4 MG/2 ML VIAL IV PUSH ×2 (13:21→22:01)
[2024-03-31 14:32] LABS: Acetaminophen < 10 ug/mL (10-30)
[2024-03-31 15:35] LABS: Alanine Aminotransferase > 3750 U/L (6-35)
[2024-03-31 15:36] LABS: Albumin Level 4.2 g/dL (3.5-5.1); Alkaline Phosphatase 120 U/L (38-126); Bilirubin Direct 0.7 mg/dL (0-0.3); Bilirubin,Total 4.1 mg/dL (0.2-1.3)
[2024-03-31 15:37] LABS: Aspartate Amino Transferase > 7500 U/L (14-36)
[2024-03-31 21:24] LABS: Albumin Level 4.6 g/dL (3.5-5.1); Alkaline Phosphatase 120 U/L (38-126); Anion Gap 6 mmol/L (4-12); Bilirubin Direct 0.4 mg/dL (0-0.3); Bilirubin,Total 3.7 mg/dL (0.2-1.3); Blood Urea Nitrogen 2 mg/dL (7-17); Calcium 8.9 mg/dL (8.4-10.2); Carbon Dioxide 25 mmol/L (22-30); Chloride 104 mmol/L (98-107); Estimated CRCL calculation 84 ml/min; Estimated Glomerular Filt Rate > 60; Glucose 138 mg/dL (65-110); Potassium 3.4 mmol/L (3.4-5.0); Sodium 135 mmol/L (137-145)
[2024-03-31 22:05] LABS: Alanine Aminotransferase > 3750 U/L (6-35)
[2024-03-31 22:16] LABS: Aspartate Amino Transferase > 7500 U/L (14-36)
[2024-04-01] VITALS (9 sets, daily range): BP systolic 120–150; BP diastolic 48–99; PULSE 70–109; RESP 14–16; TEMP 36.5–37.1; O2SAT 97–99
[2024-04-01 04:12] LABS: Basophils Percent Auto 0.4 % (0.2-1.2); Eosinophils Absolute Auto 0.1 K/mm3 (0-0.3); Eosinophils Percent Auto 1.9 % (0-4.4); Hematocrit 40.7 % (37.0-47.0); Immature Granulocyte Absolute 0.01 K/mm3 (0.00-0.031); Immature Granulocyte Percent A 0.2 % (0-0.5); Lymphocytes Absolute Auto 0.77 K/mm3 (0.9-3.2); Lymphocytes Percent Auto 16.3 % (18.3-44.2); Mean Corpuscular HGB Conc 34.4 g/dl (32-36); Mean Corpuscular Hemoglobin 31.3 pg (26-34); Mean Corpuscular Volume 91.1 fl (80-100); Mean Platelet Volume 10.2 fl (7.4-10.4); Monocytes Absolute Auto 0.1 K/mm3 (0.1-0.6); Monocytes Percent Auto 2.1 % (2.6-8.5); Neutrophils Absolute Auto 3.7 K/mm3 (1.3-6.7); Neutrophils Percent Auto 79.1 % (45.5-73.1); Platelet Count Result 146 k/mm3 (150-375); Red Blood Count 4.47 M/mm3 (4.2-5.4); Red Cell Distribution Width 14.2 % (11.5-14.5); White Blood Count 4.7 K/mm3 (4.5-10.0)
[2024-04-01 04:25] LABS: Ammonia 56 umol/L (9-30)
[2024-04-01 04:29] LABS: Albumin Level 4.1 g/dL (3.5-5.1); Alkaline Phosphatase 112 U/L (38-126); Anion Gap 6 mmol/L (4-12); Bilirubin,Total 3.1 mg/dL (0.2-1.3); Blood Urea Nitrogen 2 mg/dL (7-17); Calcium 8.6 mg/dL (8.4-10.2); Carbon Dioxide 26 mmol/L (22-30); Chloride 103 mmol/L (98-107); Estimated CRCL calculation 97 ml/min; Estimated Glomerular Filt Rate > 60; Glucose 102 mg/dL (65-110); Potassium 3.2 mmol/L (3.4-5.0); Sodium 135 mmol/L (137-145)
[2024-04-01 04:31] LABS: INR 2.2; Prothrombin Time 26.1 Seconds (11.1-14.7)
[2024-04-01 04:32] LABS: Partial Thromboplastin Time 29.6 Seconds (22.3-36.8)
--- NOTE | 2024-04-01 06:05 | PC.NURSE ---
Poison Control called, provided update. LFTs for today's lab draw were not back yet. They will call back later today for another update.
[2024-04-01 06:30] LABS: Alanine Aminotransferase > 5000 U/L (6-35); Aspartate Amino Transferase > 7500 U/L (14-36)
--- NOTE | 2024-04-01 08:33 | PM.IMPN ---
Progress Note: A&P Assessment and Plan (1) Overdose on Tylenol: Qualifiers: Encounter type: initial encounter Injury intent: intentional self-harm Qualified Code(s): T39.1X2A - Poisoning by 4-Aminophenol derivatives, intentional self-harm, initial encounter Code(s): T39.1X1A - Poisoning by 4-Aminophenol derivatives, accidental (unintentional), initial encounter Status: Acute Assessment and Plan: Patient with Tylenol overdose. Alc use as mentioned below. Patient started on acetylcysteine on 03/28 at 1730. Poison control contacted multiple times and we continued her on acetylcysteine Acetaminophen level was up to 351 (03/28 at 1617) but has dropped to <10 AST peaked at 2850 but began to trend down. ALT and TBili elevated and continued to climb. Bili almost all indirect GI consulted and appreciate their input. Hepatitis panel negative. RUQ diffuse hepatic steatosis. Liver enzymes became much worse on 03/31 Today AST >7500 and ALT >5000. Tbili peaked at 4.6 and better today at 3.1 Ammonia higher at 56 and INR stable at 2.2 Continue acetylcysteine. Plan for transfer to tertiary center and still waiting for bed at [facility]. Patient and family made aware of plan to transfer and all questions answered. Will contact [facility] for transfer as well. VitK 10mg once (2) Acute drug overdose: Qualifiers: Encounter type: initial encounter Injury intent: intentional self-harm Qualified Code(s): T50.902A - Poisoning by unspecified drugs, medicaments and biological substances, intentional self-harm, initial encounter Code(s): T50.901A - Poisoning by unspecified drugs, medicaments and biological substances, accidental (unintentional), initial encounter Status: Acute Assessment and Plan: Patient overdosed with Lamictal, Seroquel and Tylenol around 9AM 03/28. Unclear on how much she took with contradictory amounts. Alcohol level 133 on admission. She drinks 1x/week about 4 shots per sitting. UDS positive for marijuana. Used mushrooms on new years isabel but no other drug use except marijuana since; no hx of IVDU QTC was 451. EKG overall was normal. Repeat EKG (03/29) showing QTc 408. Continue close monitoring on telemetry. Will add thiamine and folate. (3) Liver failure, acute: Code(s): K72.00 - Acute and subacute hepatic failure without coma Status: Acute Assessment and Plan: As above (4) Suicidal overdose: Code(s): T50.902A - Poisoning by unspecified drugs, medicaments and biological substances, intentional self-harm, initial encounter Status: Acute Assessment and Plan: As above Crisis evaluation once patient is cleared medically (5) Seizure: Code(s): R56.9 - Unspecified convulsions Status: Acute Assessment and Plan: Patient with seizure history on Lamictal. This is currently on hold due to recent overdose. Seizure precautions. 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 No residual problem except did develop seizures. Patient graduated from high school and is currently taking undergraduate classes. She was living alone up until December and has since moved in with her father. Plan Code status - full DVT prophylaxis - SCDs Subjective Date/time seen: 04/01/24 08:33 Interval history: 24yo female here for intentional drug overdose with Seroquel, Lamictal and Tylenol. Still having bouts of nausea and vomiting. She feels this is related to anxiety. No CP or SOB. No abd pain. Only had 1 BM since admission but not eating much. Denies feeling confused but having 'racing' thoughts with anxiety. Exam N
[2024-04-01] MEDS: POTASSIUM CHLORIDE 20 MEQ ER TABLET 40 MEQ PO (08:55)
[2024-04-01] MEDS: THIAMINE HCL 100 MG TABLET PO (10:10)
[2024-04-01] MEDS: KCL 20 MEQ/D5/0.9% SOD CHL 1,000 ML 70 ML IV CONT (10:10)
[2024-04-01] MEDS: PHYTONADIONE 5 MG TABLET 10 MG PO (10:10)
[2024-04-01] MEDS: FOLIC ACID 1 MG TABLET PO (10:10)
[2024-04-01] MEDS: LACTULOSE 20 GM/30 ML UDC PO (10:10)
[2024-04-01] MEDS: ONDANSETRON INJ 4 MG/2 ML VIAL IV PUSH (10:11)
--- NOTE | 2024-04-01 10:28 | WPDCNINT ---
Assessment and Plan Assessment and plan (1) Liver failure, acute: Code(s): K72.00 - Acute and subacute hepatic failure without coma Status: Acute Assessment and Plan: Secondary to acetaminophen overdose with gradually worsening liver enzymes AST>7500 and ALT> 5000 today Bilirubin 3.1 which is improved Ammonia 56 Vital hepatitis panel negative Right upper quadrant ultrasound showed diffuse hepatic steatosis with normal flow in portal vein Continue N-acetylcysteine infusion 10 mg vitamin K ordered for any possible nutritional deficiency the patient may have Lactulose started empirically Monitor LFTs coags and ammonia level Patient has been accepted at [facility] and [facility] and will be transferred once bed is available Isotonic cautious IV fluids (2) Elevated INR: Code(s): R79.1 - Abnormal coagulation profile Status: Acute Assessment and Plan: See above (3) Overdose on Tylenol: Qualifiers: Encounter type: initial encounter Injury intent: intentional self-harm Qualified Code(s): T39.1X2A - Poisoning by 4-Aminophenol derivatives, intentional self-harm, initial encounter Code(s): T39.1X1A - Poisoning by 4-Aminophenol derivatives, accidental (unintentional), initial encounter Status: Acute Assessment and Plan: See above (4) Suicidal overdose: Code(s): T50.902A - Poisoning by unspecified drugs, medicaments and biological substances, intentional self-harm, initial encounter Status: Acute Assessment and Plan: Patient under 1-1 observation by sitter. She will be evaluated for depression once medical issues are sorted out (5) Increased ammonia level: Code(s): R79.89 - Other specified abnormal findings of blood chemistry Status: Acute Assessment and Plan: No signs of encephalopathy at this time. Start lactulose. Monitor level Plan DVT prophylaxis -SCDs Nutrition -regular diet ordered Code Status - Full Code [facility] Consult Note Consult date: 04/01/24 Reason for consult: Acute liver failure, acetaminophen overdose HPI: Jolanta Yen is a 24 year old female was admitted after a suicide attempt by taking handful of Lamictal Seroquel and Tylenol pills on 03/28. Patient did not give detailed history of the time presentation. She was drowsy but responsive. She was Admitted on step-down unit with suicide precautions and one-to-one sitter. Her in histamine often level was high and she was started on N-acetylcysteine infusion. Acetaminophen level peaked at 351 on 03/28 4:00 p.m. and since then has been negligible. Unfortunately she developed hepatic toxicity secondary to acetaminophen. With increase of ALT and AST over last few days. Internal medicine physician attempted to transfer patient to [facility] but there is no bed availability at this time. Her LFTs have worsened and are AST > 7500 and ALT> 5000 today. Patient is being transferred to ICU for closer monitoring and I was consulted to assist in management. Patient this morning states that she feels anxious because of current condition and feels disappointed with herself for creating this trouble for herself. Physically she states she has some nausea which she has had since she has been admitted. She states that when she feels anxious she gets nauseous. She had vomiting was clear. She denies any other complaints. Patient denies fever, chest pain, shortness of breath, cough, dizziness lightheadedness headache, confusion, slurred speech, abdominal pain, diarrhea, headache or constipation. She has a cast on the right forearm from a fracture from recent fall about a month ago All other systems were reviewed and were negative Review of Systems Review of Systems: All systems reviewed & are unremarkable except as noted in HPI and below (HPI) [facility] Past Medical History Medical History E
[2024-04-01 14:54] LABS: Anion Gap 3 mmol/L (4-12); Blood Urea Nitrogen 2 mg/dL (7-17); Calcium 8.5 mg/dL (8.4-10.2); Carbon Dioxide 28 mmol/L (22-30); Chloride 106 mmol/L (98-107); Estimated CRCL calculation 114 ml/min; Estimated Glomerular Filt Rate > 60; Glucose 165 mg/dL (65-110); Magnesium 1.6 mg/dL (1.6-2.3); Potassium 3.7 mmol/L (3.4-5.0); Sodium 137 mmol/L (137-145)
[2024-04-01] MEDS: MAGNESIUM SULF 2 GM/WATER 50ML 2 GM/50 ML BAG IVPB (15:10)
[2024-04-01] MEDS: POTASSIUM CHLORIDE 20 MEQ ER TABLET PO (15:11)
--- NOTE | 2024-04-01 17:10 | PC.NURSE ---
pt left at 1710 after [facility] gave a bed and a Doctor's name, Óscar and report given to [facility] for room 443, pt's father Isma notified per pt's request and then notified him after they, ambulance crew and pt left, personal belongings given to EMS crew and info given to them
--- NOTE | 2024-04-01 18:43 | PM.TDS ---
Transfer Discharge Sum: Prov Provider Date of admission: 03/28/24 17:22 Primary care physician: UNKNOWN,DOCTOR Admitting clinician: Johny Pineda MD Consults: 03/30/24 10:30 Consult to Physician Routine Comment: Consulting Provider: [facility] inbound call center agent/MD group to consult: GI Reason for consultation: elevated LFTs related to Tylenol OD Has provider been notified: Yes DS: Admitting Diagnosis Discharge Date 04/01/24 Admitting Diagnosis Intentional drug overdose DS: Discharge Diagnosis Discharge Diagnosis (1) Overdose on Tylenol: Qualifiers: Encounter type: initial encounter Injury intent: intentional self-harm Qualified Code(s): T39.1X2A - Poisoning by 4-Aminophenol derivatives, intentional self-harm, initial encounter Code(s): T39.1X1A - Poisoning by 4-Aminophenol derivatives, accidental (unintentional), initial encounter Status: Acute (2) Acute drug overdose: Qualifiers: Encounter type: initial encounter Injury intent: intentional self-harm Qualified Code(s): T50.902A - Poisoning by unspecified drugs, medicaments and biological substances, intentional self-harm, initial encounter Code(s): T50.901A - Poisoning by unspecified drugs, medicaments and biological substances, accidental (unintentional), initial encounter Status: Acute (3) Liver failure, acute: Code(s): K72.00 - Acute and subacute hepatic failure without coma Status: Acute (4) Suicidal overdose: Code(s): T50.902A - Poisoning by unspecified drugs, medicaments and biological substances, intentional self-harm, initial encounter Status: Acute (5) Seizure: Code(s): R56.9 - Unspecified convulsions Status: Acute (6) History of hemorrhagic cerebrovascular accident (CVA) without residual deficits: Code(s): Z86.73 - Personal history of transient ischemic attack (TIA), and cerebral infarction without residual deficits Status: Acute Transfer Discharge Sum: Med Medications Active and Home Medications: Home Medications clonidine HCl 0.1 mg tablet 0.1 mg PO BID 03/28/24 [History Confirmed 03/28/24] escitalopram oxalate 5 mg tablet 5 mg PO DAILY 03/28/24 [History Confirmed 03/28/24] lamotrigine 200 mg tablet 200 mg PO BID 03/28/24 [History Confirmed 03/28/24] quetiapine 200 mg tablet 200 mg PO HS 03/28/24 [History Confirmed 03/28/24] Transfer Discharge Sum: Hosp Hospital Course Hospital course: Jolanta Yen is a 24yo female here for intentional drug overdose with Seroquel, Lamictal and Tylenol. Please see H&P for details. Patient overdosed with Lamictal, Seroquel and Tylenol around 9AM 03/28.?Unclear on how much she took with contradictory amounts. Alcohol level 133 on admission. She drinks 1x/week about 4 shots per sitting. UDS positive for marijuana. Used mushrooms on New but no other drug use except marijuana since; no hx of IVDU. QTC was 451.? EKG overall was normal. Repeat EKG (03/29) showing QTc 408. Thiamine and folate added. Patient presented with Tylenol overdose and was started on acetylcysteine on 03/28 at 1730.?Poison control contacted multiple times and we continued her on acetylcysteine. Acetaminophen level was up to 351 (03/28 at 1617) but has dropped to <10. AST peaked at 2850 and began to trend down. ALT and TBili elevated and continued to climb.? Bili almost all indirect. GI consulted and appreciate their input. Hepatitis panel negative. RUQ diffuse hepatic steatosis. Liver enzymes became much worse on 03/31. Today AST >7500 and ALT >5000. Tbili peaked at 4.6 and better today at 3.1. Ammonia higher at 56 and INR stable at 2.2. We continued acetylcysteine. Multiple hospitals called to transfer patient. Consulted coat cutter. Lactulose started. Vit K once. She will need a psychiatric evaluation once she is cleared medically. Patient with seizure history on Lamictal.? This was held due to recent overdose. Sh
[2024-04-03 10:18] LABS: Lamotrigine Lamictal 4.8 mcg/mL (2.5-15.0)
== END 2024-04-01 17:05 | disposition short-term general hospital (02) | DRG 918 ==
LOC: ANHED 14:24 → ANHICU 17:58
PROVIDERS: Internal Medicine; Internal Medicine Gastroenterology; Admitting Provider Internal Medicine; Emergency Provider Student in an Organized Health Care Education/Training Program; Visit Provider Internal Medicine
DX: T39.1X2A Poisoning by 4-Aminophenol derivatives, intentional self-harm, initial encounter (principal); T43.592A Poisoning by other antipsychotics and neuroleptics, intentional self-harm, initial encounter; T42.6X2A Poisoning by other antiepileptic and sedative-hypnotic drugs, intentional self-harm, initial encounter; K71.10 Toxic liver disease with hepatic necrosis, without coma; K76.0 Fatty (change of) liver, not elsewhere classified; I69.298 Other sequelae of other nontraumatic intracranial hemorrhage; G40.909 Epilepsy, unspecified, not intractable, without status epilepticus; F12.90 Cannabis use, unspecified, uncomplicated; Z20.822 Contact with and (suspected) exposure to COVID-19
CPT/HCPCS: 36415; 36569; 76705; 80048; 80053; 80074; 80076; 80175; 80307; 81003; 81025; 82140; 82248; 82550; 82803; 83605; 83735; 84443; 85025; 85027; 85610; 85730; 87637; 93005; 96361; 96374; 99285; A9270; C1751; J0132; J2060; J2250; J2405; J3475; J3480; J7030; J7060; J7070

== ENCOUNTER 2024-04-12 15:18 | Emergency (ER) | payer BC, SELFPAY ==
[2024-04-12] VITALS (9 sets, daily range): BP systolic 107–117; BP diastolic 74–85; PULSE 69–104; RESP 12–16; O2SAT 97–100
--- NOTE | ~2024-04-12 | XR_ITS ---
XR chest 1V Ordering provider: Clovis Michael PA-C History: 24 years Female with . syncope . Comparison: April 01, 2024 FINDINGS: MEDIASTINUM: The cardiac silhouette is not enlarged. LUNGS: No infiltrates, effusions or pneumothorax. OTHER: No free air under the diaphragm. IMPRESSION: No acute cardiopulmonary pathology. Reviewed, dictated and finalized at location A.
--- NOTE | ~2024-04-12 | CT_ITS ---
CT brain wo con Ordering provider: Clovis Michael PA-C History: 24 years Female with . syncope, fall . Comparison: None. Technique: CT of the head without contrast. Radiation reduction technique utilized. FINDINGS: BRAIN PARENCHYMA AND CSF SPACES: Encephalomalacia seen in the left temporal lobe most likely postoper ative. No midline shift, mass effect or hemorrhage. The brain parenchyma and CSF spaces are otherwis e normal. VISUALIZED PARANASAL SINUSES: Well aerated. MASTOIDS: Well aerated. BONES: Postoperative changes in the left temprofrontoparietal areas. SOFT TISSUES: Visualized nasopharynx is normal. Superficial soft tissues is normal. IMPRESSION: No acute intracranial findings. Reviewed, dictated and finalized at location A.
--- NOTE | 2024-04-12 18:40 | ECG_ITS ---
[facility] [address] Test Date: 2024-04-12 Pat Name: Jolanta Yen Department: Room: Gender: F Online Content Coordinator: : 2000 Requested By: Clovis Richardson Order Number: [id number] Haleigh MD: Julio Scherer M.D. Measurements Intervals Windfall Rate: 72 P: 67 MO: 150 QRS: 79 QRSD: 88 T: 59 QT: 370 QTc: 406 Interpretive Statements SINUS RHYTHM WITH SINUS ARRHYTHMIA NORMAL ELECTROCARDIOGRAM No previous ECG available for comparison Electronically Signed On 04-13-2024 08:06:17 CDT by Julio Scherer M.D.
--- NOTE | 2024-04-12 18:40 | ED.GENADULT ---
HPI - General Adult General Chief complaint: Syncope Stated complaint: possible seizure yesterday Time Seen by Provider: 04/12/24 18:10 Source: patient Mode of arrival: ambulatory Limitations: no limitations History of Present Illness HPI narrative: This is a 24-year-old female The who presents to the ED for chief complaint of possible syncopal episode yesterday. Patient reports that she has had seizures in the past. she had taken lamotrigine until recently switched her to peer. Patient states that yesterday while in the kitchen she made some turn like away this that she blacked out. She reports that her father was with her and that she came to several seconds later. A she states that it was not noted that she had any convulsions or seizure like activity. Denies fevers, chills, recent illness, headache, numbness, weakness, vision change, speech change. Related Data Home Medications Medication Instructions Recorded Confirmed clonidine HCl 0.1 mg tablet 0.1 mg PO BID 03/28/24 03/28/24 escitalopram oxalate 5 mg tablet 5 mg PO DAILY 03/28/24 03/28/24 lamotrigine 200 mg tablet 200 mg PO BID 03/28/24 03/28/24 quetiapine 200 mg tablet 200 mg PO HS 03/28/24 03/28/24 Allergies Allergy/AdvReac Type Severity Reaction Status Date / Time Sulfa (Sulfonamide AdvReac Unknown Verified 03/28/24 16:22 Antibiotics) vancomycin AdvReac Other Verified 03/28/24 16:22 Review of Systems Review of Systems: All systems as dictated in [facility] Past Medical History Medical History Elevated INR Liver failure, acute Suicidal overdose Social History Social History Smoking status: Never smoker Alcohol intake: current Substance use: current Substance use type: marijuana Spiritual care concerns: No Exam Narrative: GENERAL: Well-appearing, well-nourished, and in no acute distress. HEAD: Normocephalic, atraumatic. EYES: PERRLA and EOMI. ENT: Nares clear, no rhinorrhea or epistaxis. Mucous membranes moist. Oropharynx without tonsillar hypertrophy exudate or other lesions. NECK: Supple. No adenopathy or masses. CHEST: No respiratory distress. Clear to auscultation. No wheezes rales or rhonchi HEART: Regular rate and rhythm. No murmur heard. Normal peripheral pulses. ABDOMEN: Soft, nontender, nondistended, normal active bowel sounds. MSK: Normal range of motion. No edema. SKIN: Warm, dry, no rash. NEURO: Alert and oriented x4. No focal deficits. PSYCH: Normal mood and affect. Course Vital Signs Vital signs: Vital Signs Pulse Rate 104 H 04/12/24 15:41 Respiratory Rate 16 04/12/24 15:41 Blood Pressure 111/76 04/12/24 15:41 Pulse Oximetry 100 04/12/24 15:41 Pulse Rate 76 04/12/24 20:15 Respiratory Rate 16 04/12/24 20:15 Blood Pressure 113/81 04/12/24 20:01 Pulse Oximetry 100 04/12/24 20:15 Medical Decision Making MDM Narrative Medical decision making narrative: This is a 24-year-old female who presents to the ED with chief complaint of possible syncopal episode that occurred yesterday. Vitals are normal. EKG shows sinus rhythm with sinus arrhythmia. No concerning arrhythmia for cardiogenic syncope. CT brain shows no acute findings. Chest x-ray normal. CBC, CMP unremarkable overall. She is given a L of fluids here. No subsequent episodes of lightheadedness or syncope. Presentation most likely consistent with vasovagal syncope vs orthostatic hypotension. Pt will be discharged in stable condition. Return precautions given and supportive measures discussed. Pt is understanding and agreeable with plan for discharge and follow-up with PCP. Vital Signs Vital Signs: Vital Signs Pulse Rate 104 H 04/12/24 15:41 Respiratory Rate 16 04/12/24 15:41 Blood Pressure 111/76 04/12/24 15:41 Pulse Oximetry 100 04/12/24 15:41 Pulse Rate 76
[2024-04-12] MEDS: SODIUM CHLORIDE 0.9% IV 1,000 ML 999 ML IV CONT (19:22)
--- NOTE | 2024-04-12 19:22 | PC.NURSE ---
Report received from IVIS Diaz. Assumed care of patient at this time.
[2024-04-12 19:24] LABS: Basophils Percent Auto 0.7 % (0.2-1.2); Eosinophils Percent Auto 0.7 % (0-4.4); Hematocrit 39.4 % (37.0-47.0); Immature Granulocyte Absolute 0.02 K/mm3 (0.00-0.031); Immature Granulocyte Percent A 0.5 % (0-0.5); Lymphocytes Absolute Auto 0.96 K/mm3 (0.9-3.2); Lymphocytes Percent Auto 22.7 % (18.3-44.2); Mean Corpuscular Hemoglobin 31.8 pg (26-34); Mean Corpuscular Volume 96.3 fl (80-100); Mean Platelet Volume 9.4 fl (7.4-10.4); Monocytes Absolute Auto 0.5 K/mm3 (0.1-0.6); Monocytes Percent Auto 11.6 % (2.6-8.5); Neutrophils Absolute Auto 2.7 K/mm3 (1.3-6.7); Neutrophils Percent Auto 63.8 % (45.5-73.1); Platelet Count Result 348 k/mm3 (150-375); Red Blood Count 4.09 M/mm3 (4.2-5.4); Red Cell Distribution Width 16.2 % (11.5-14.5); White Blood Count 4.2 K/mm3 (4.5-10.0)
[2024-04-12 19:38] LABS: Alanine Aminotransferase 198 U/L (6-35); Albumin Level 4.8 g/dL (3.5-5.1); Alkaline Phosphatase 101 U/L (38-126); Anion Gap 8 mmol/L (4-12); Aspartate Amino Transferase 38 U/L (14-36); Bilirubin,Total 1.2 mg/dL (0.2-1.3); Blood Urea Nitrogen 14 mg/dL (7-17); Calcium 9.6 mg/dL (8.4-10.2); Carbon Dioxide 25 mmol/L (22-30); Chloride 105 mmol/L (98-107); Estimated CRCL calculation 65 ml/min; Estimated Glomerular Filt Rate > 60; Glucose 82 mg/dL (65-110); Potassium 3.9 mmol/L (3.4-5.0); Sodium 138 mmol/L (137-145)
== END 2024-04-12 20:42 | disposition home or self-care (01) ==
PROVIDERS: Emergency Provider Physician Assistant
DX: R55 Syncope and collapse (principal); G40.909 Epilepsy, unspecified, not intractable, without status epilepticus; F12.90 Cannabis use, unspecified, uncomplicated
CPT/HCPCS: 36415; 70450; 71045; 80053; 85025; 93005; 96360; 99284; J7030

== ENCOUNTER 2024-05-06 12:00 | Emergency (ER) | payer BC, SELFPAY ==
[2024-05-06] VITALS (8 sets, daily range): BP systolic 101–150; BP diastolic 57–92; PULSE 93–120; RESP 12–24; TEMP 36.4–37.1; O2SAT 94–100
--- NOTE | ~2024-05-06 | CT_ITS ---
EXAMINATION: CT abdomen pelvis w con DATE: 05/06/2024 17:41 INDICATION: ABDOMINAL PAIN, heavy vaginal bleeding. TECHNIQUE: Computed tomography (CT) of the abdomen and pelvis was performed with 100 mL Omnipaque-350 intravenous contrast. Automated exposure control and iterative reconstruction technique were employe d. The dose-length product was 189.41 mGy-cm. COMPARISON: None. FINDINGS: Lower thorax: Unremarkable Liver: Normal. Biliary/Gallbladder: Gallbladder is normal. No bile duct dilation. Pancreas: No mass or duct dilation. Spleen: Normal. Adrenals:No mass. Kidneys: No suspicious mass, obstructing stone, or hydronephrosis. GI tract: No small or large bowel dilation. Normal appendix. Mesentery/Peritoneum: No ascites, mass, or free air. Retroperitoneum: No mass. Pelvis: Normal urinary bladder and bilateral ovaries. IUD, positioned in the lower left uterine segme nt. The right limb of the IUD penetrates the uterine parenchyma with the tip near the serosal surface . Soft Tissues: Soft tissues and body wall unremarkable. Bones: No acute osseous finding. IMPRESSION: Embedded IUD, the right limb of the IUD penetrates and nearly perforates the uterine parenchyma. Chai mmend removal. No other acute abdominal pelvic process detected. Reviewed, dictated and finalized at location K. IMPRESSION: Embedded IUD, the right limb of the IUD penetrates and nearly perforates the ut erine parenchyma. Recommend removal. No other acute abdominal pelvic process detected.
--- NOTE | ~2024-05-06 | US_ITS ---
US pelvic complete w TV Ordering provider: Yao Velez MD History: . Possible IUD misplacement . Comparison: None. Technique: Transabdominal and endovaginal ultrasound of the pelvis (Doppler ultrasound interrogation techniques used as needed for this exam.) FINDINGS: CERVIX: Normal. UTERUS: Measures 7.2x 3.3x 3.3 cm in length which is within normal limits and is anteverted. No myom etrial masses. ENDOMETRIUM: Normal in thickness measuring 1.1 mm. IUD is seen in the uterus but appears to be low in position and possible malposition of the arms.. No endometrial masses, cysts or fluid. CUL DE SAC: No free fluid. RIGHT OVARY: Normal in size measuring 2.6x 2.1x 1.7 cm. Normal echotexture. Doppler vascular flow pre sent. LEFT OVARY: Normal in size measuring 2.6x 1.8x 1.9 cm. Normal echotexture. Doppler vascular flow pres ent. ADNEXA: Normal. No mass. IMPRESSION: Low-lying IUD. Otherwise, normal pelvic ultrasound. Reviewed, dictated and finalized at location A.
--- NOTE | 2024-05-06 12:46 | ED.FEMALEGU ---
HPI - Female Genitourinary General Chief complaint: Vaginal Bleeding Stated complaint: abd cramping, vaginal bleed, N/V Time Seen by Provider: 05/06/24 12:42 Source: patient Mode of arrival: ambulatory Limitations: no limitations History of Present Illness HPI Narrative: 24 years old white female drop of by her dad to the emergency room complaining of not feeling well, cramps, shaking all over started 3 days ago. Associated with vaginal bleeding. One saturated compound per hour. Status post IUD placement 6 months ago. History of seizures, mood disorder, marijuana and alcohol use occasionally. Patient never been . Sexually active. Denies any fever. Related Data Home Medications Medication Instructions Recorded Confirmed clonidine HCl 0.1 mg tablet 0.1 mg PO BID 03/28/24 03/28/24 escitalopram oxalate 5 mg tablet 5 mg PO DAILY 03/28/24 03/28/24 lamotrigine 200 mg tablet 200 mg PO BID 03/28/24 03/28/24 quetiapine 200 mg tablet 200 mg PO HS 03/28/24 03/28/24 Allergies Allergy/AdvReac Type Severity Reaction Status Date / Time Sulfa (Sulfonamide AdvReac Unknown Verified 03/28/24 16:22 Antibiotics) vancomycin AdvReac Other Verified 03/28/24 16:22 Review of Systems Review of Systems: All systems reviewed & are unremarkable except as noted in HPI and below PMFSH Past Medical History Medical History Elevated INR Liver failure, acute Suicidal overdose Social History Social History Smoking status: Never smoker Alcohol intake: current Substance use: current Substance use type: marijuana Spiritual care concerns: No Exam Narrative: General appearance: Well-developed, well-nourished, shaking all over, holding vomiting bag in hand Skin: Normal color Head: Normocephalic, nontraumatic Eyes: Clear conjunctiva ENT: Oropharynx normal, ears normal, nose normal Neck: Supple, nontender Chest and respiratory: Airway patent, no respiratory distress, no accessory muscle use Heart: Regular rate/rhythm Abdomen: Soft, slight diffuse abdominal tenderness, no organomegaly, quiet bowel sounds Vascular: Normal peripheral pulses, normal capillary refill. Musculoskeletal: Normal range of motion, nontender back Neurologic: Alert and oriented ?3, [employer] is normal as tested, no gross motor deficit : Speculum Exam - Vagina: normal appearance of the vagina and vaginal bleeding (NO VAGINAL BLEEDING) Speculum Exam - Cervix: normal appearance of the cervix and Cervical os closed Bimanual Exam- Adnexa, other: tender Course Consultations Consultation #1: DR KUHN PULL THE IUD OUT OR ASK PATIENT TO FOLLOW-UP WITH HER OBGYN SOON POSSIBLE. Date: 05/06/24 Time: 18:54 Vital Signs Vital signs: Vital Signs Temperature 37.1 C 05/06/24 12:02 Pulse Rate 113 H 05/06/24 12:02 Respiratory Rate 14 05/06/24 12:02 Blood Pressure 150/92 H 05/06/24 12:02 Pulse Oximetry 98 05/06/24 12:02 Oxygen Delivery Room Air 05/06/24 12:02 Temperature 36.4 C 05/06/24 15:33 Pulse Rate 116 H 05/06/24 17:10 Respiratory Rate 16 05/06/24 15:33 Blood Pressure 111/87 05/06/24 17:10 Pulse Oximetry 100 05/06/24 15:33 Oxygen Delivery Nasal Cannula 05/06/24 14:02 Oxygen Flow Rate 2 05/06/24 14:02 MDM - Female Genitourinary MDM Narrative Medical decision making narrative: For differential diagnosis vaginal bleeding causing anemia, IUD misplacement, , our anxiety/stress I plan to get blood workup, pelvic ultrasound. Start patient on IV fluid, and Zofran WORKUP TODAY SHOWED IUD MISPLACEMENT, ALMOST P
[2024-05-06] MEDS: SODIUM CHLORIDE 0.9% IV 1,000 ML 999 ML IV CONT (13:42)
[2024-05-06] MEDS: ONDANSETRON INJ 4 MG/2 ML VIAL IV PUSH (13:42)
[2024-05-06 13:43] LABS: Glucose Point of Care 144 mg/dl (65-105)
--- NOTE | 2024-05-06 13:51 | PC.NURSE ---
pt to ed from ultrasound. pt was getting transvaginal ultrasound when she began having seizure with tonic-clonic movements. duration unknown. xray tech rolled pt on her left side and pt had emesis x1. upon return to dept, pt was post-ictal. pt was awake but confused and not following commands. edp aware. glucose and ekg obtained. pt a&ox4 after 7 minutes
--- NOTE | 2024-05-06 13:54 | ECG_ITS ---
Test Date: 2024-05-06 13:54:53 Measurements Intervals [place] Rate: 136 P: 70 [place]: 143 QRS: 89 QRSD: 94 T: 31 QT: 299 QTc: 451 Interpretive Statements SINUS TACHYCARDIA INCOMPLETE RIGHT BUNDLE BRANCH BLOCK MINIMAL Q WAVES- ANTEROLAT/INF LEADS BASELINE ARTIFACT- I, II, AVR, AVL, AVF, V1 ABNORMAL ECG Compared to ECG 04/12/2024 19:37:23 Sinus tachycardia now present Electronically Signed On 05-06-2024 16:07:49 CDT by Curtis Cabral D.O.
[2024-05-06] MEDS: diazePAM INJ (*CRX) 10 MG/2 ML SYRINGE 5 MG IV PUSH (13:57)
[2024-05-06 14:00] LABS: Basophils Absolute Auto 0.1 K/mm3 (0.0-0.1); Basophils Percent Auto 0.6 % (0.2-1.2); Eosinophils Percent Auto 0.1 % (0-4.4); Hematocrit 43.6 % (37.0-47.0); Hemoglobin 14.2 g/dL (12.0-15.0); Immature Granulocyte Absolute 0.05 K/mm3 (0.00-0.031); Immature Granulocyte Percent A 0.3 % (0-0.5); Lymphocytes Absolute Auto 3.09 K/mm3 (0.9-3.2); Lymphocytes Percent Auto 17.8 % (18.3-44.2); Mean Corpuscular HGB Conc 32.6 g/dl (32-36); Mean Corpuscular Hemoglobin 32.6 pg (26-34); Mean Corpuscular Volume 100.2 fl (80-100); Mean Platelet Volume 9.6 fl (7.4-10.4); Monocytes Absolute Auto 0.9 K/mm3 (0.1-0.6); Monocytes Percent Auto 5.2 % (2.6-8.5); Neutrophils Absolute Auto 13.2 K/mm3 (1.3-6.7); Platelet Count Result 360 k/mm3 (150-375); Red Blood Count 4.35 M/mm3 (4.2-5.4); Red Cell Distribution Width 14.6 % (11.5-14.5); White Blood Count 17.4 K/mm3 (4.5-10.0)
--- NOTE | 2024-05-06 14:12 | PC.NURSE ---
Isma, father: [phone]
[2024-05-06 14:17] LABS: Albumin Level 5.4 g/dL (3.5-5.1); Alkaline Phosphatase 106 U/L (38-126); Anion Gap 33 mmol/L (4-12); Aspartate Amino Transferase 39 U/L (14-36); Bilirubin,Total 1.4 mg/dL (0.2-1.3); Blood Urea Nitrogen 9 mg/dL (7-17); Calcium 9.2 mg/dL (8.4-10.2); Carbon Dioxide 6 mmol/L (22-30); Chloride 104 mmol/L (98-107); Estimated Glomerular Filt Rate > 60; Glucose 135 mg/dL (65-110); Potassium 3.1 mmol/L (3.4-5.0); Sodium 143 mmol/L (137-145)
[2024-05-06 14:26] LABS: Alanine Aminotransferase 30 U/L (6-35)
[2024-05-06] MEDS: METOCLOPRAMIDE HCL INJ 10 MG/2 ML VIAL IV PUSH (14:50)
[2024-05-06] MEDS: diphenhydrAMINE HCl INJ 50 MG/ML VIAL IV PUSH (14:50)
[2024-05-06 15:42] LABS: Appearance Urine Clear (Clear); Bacteria Urine None Seen /hpf; Bilirubin Urine Negative (Negative); Blood Urine Trace (Negative); Color Urine Yellow (Yellow); Glucose Urine UA Negative (Negative); Ketones Urine 2+ mg/dL (Negative); Leukocyte Esterase Ur Negative LEU/UL (Negative); Nitrate Urine Negative (Negative); Non Pathogenic Casts 0-2; Protein Urine 1+ mg/dL (Negative); RBC Urine 0-2 /hpf (0-2); Specific Grav Ur 1.017 (1.001-1.035); Squamous Epithelial Cell Urine None Seen /hpf (Few); Urobilinogen Urine 0.2 mg/dL (<2.0); WBC Urine 0-5 /hpf (0-3); pH Urine 6.5 (5.0-9.0)
[2024-05-06 16:03] LABS: Add Urine Microscopic? YES
[2024-05-06] MEDS: DOXYCYCLINE HYCLATE 100 MG TABLET PO (19:15)
[2024-05-06] MEDS: cefTRIAXone 1 GM VIAL 0.5 GM IM (19:21)
[2024-05-15 08:17] LABS: Lamotrigine Lamictal <0.5 mcg/mL (2.5-15.0)
== END 2024-05-06 19:25 | disposition home or self-care (01) ==
PROVIDERS: Emergency Provider Emergency Medicine
DX: R56.9 Unspecified convulsions (principal); T83.69XA Infection and inflammatory reaction due to other prosthetic device, implant and graft in genital tract, initial encounter
CPT/HCPCS: 36415; 74177; 76830; 76856; 80053; 80175; 81001; 81025; 82948; 85025; 86850; 86900; 86901; 93005; 96361; 96372; 96374; 96375; 99284; A9270; J0696; J1200; J2405; J2765; J3360; J7030; Q9967

== ENCOUNTER 2024-05-23 13:47 | Emergency (ER) | payer BC, SELFPAY ==
[2024-05-23 13:49] VITALS: BP 116/72; PULSE 122; RESP 17; TEMP 36.8; O2SAT 98
--- NOTE | 2024-05-23 13:54 | ECG_ITS ---
Test Date: 2024-05-23 13:54:00 Measurements Intervals [place] Rate: 135 P: 71 [place]: 138 QRS: 86 QRSD: 89 T: 51 QT: 288 QTc: 432 Interpretive Statements SINUS TACHYCARDIA MINIMAL Q WAVES- INFERIOR LEADS BASELINE ARTIFACT- II, III, AVR, AVL, AVF, V4-V5 ABNORMAL ECG Compared to ECG 05/06/2024 13:54:53 Incomplete right bundle-branch block no longer present Electronically Signed On 05-24-2024 16:01:49 CDT by Curtis Cabral D.O.
[2024-05-23 14:00] VITALS: O2SAT 97
[2024-05-23 14:02] VITALS: O2SAT 100
--- NOTE | 2024-05-23 14:50 | PC.NURSE ---
patient has been vomiting, patient has asked multiple times for water to which this RN and multiple techs have stated that she can't have any water yet. patient continues to drink soda and water while staff are out of room.
--- NOTE | 2024-05-23 14:57 | PC.NURSE ---
Addendum entered by Lorena Berg RN 05/23/24 15:03: two*, not to Original Note: Patient visitor out to desk reporting patient felt low on oxygen . This RN to patient room to assess patient. Patient found with skin pink, warm, and dry. Respirations even and unlabored. Room air oxygen saturation 99%. Patient found to have to electronic cigarette devices sitting on her chest. Patient educated on our no tobacco policy. Patient educated on smoking and how it might have correlated with her feeling as if she was low on oxygen . Patient verbalized understanding. Vapes removed from her and placed into her vistor's backpack per her request.
[2024-05-23 15:29] VITALS: BP 120/76; PULSE 102; RESP 16; O2SAT 98
--- NOTE | 2024-05-23 15:55 | ED.SEIZURE ---
HPI - Seizure General Chief Complaint: Seizure Stated Complaint: seizures Time Seen by Provider: 05/23/24 15:54 Source: patient Mode of arrival: EMS Limitations: no limitations History of Present Illness HPI Narrative: Patient presents after reported having 2 seizures that were reportedly witnessed by a friend not present. She states that she was told each lasted approximately 20 minutes she lost consciousness during seizures and only regain consciousness while with EMS and was confused at the time states she is at baseline now. Patient states she attempted suicide via Tylenol overdose approximately 1 month ago. Given her liver injury at that time, her anti seizure medication was changed to an alternative regimen. She believe topiramate b.i.d. but she is not certain. Her neurologist is through [facility], Dr Sierra. 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 She states she has been nauseated and vomited this morning in which her antiseizure medication wasn't absorbed but states she otherwise has been taking her medications which also include escitalopram (no change in dose in the past 2 months) and Seroquel (dose changed from 150mg to 200mg). She is also on an antibiotic for bacterial vaginosis which she states is doxycycline. No other new meds. Does occasionally drink alcohol but states last had alcohol in the form of wine 4 days ago. States her sleep has been ok with the Seroquel. LMP is unknown as she has implantable contraception in right upper extremity. Related Data Home Medications Medication Instructions Recorded Confirmed clonidine HCl 0.1 mg tablet 0.1 mg PO BID 03/28/24 03/28/24 escitalopram oxalate 5 mg tablet 5 mg PO DAILY 03/28/24 03/28/24 lamotrigine 200 mg tablet 200 mg PO BID 03/28/24 03/28/24 quetiapine 200 mg tablet 200 mg PO HS 03/28/24 03/28/24 Allergies Allergy/AdvReac Type Severity Reaction Status Date / Time Sulfa (Sulfonamide AdvReac Unknown Verified 03/28/24 16:22 Antibiotics) vancomycin AdvReac Other Verified 05/23/24 20:19 keppra AdvReac Itching Uncoded 05/23/24 20:17 [facility] Past Medical History Medical History (Updated 05/23/24 @ 20:20 by Paige Quan MD) Congenital arteriovenous malformation Elevated INR 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 HEAD: Normocephalic, atraumatic. EYES: Non injected, non icteric ENT: Nares clear, no rhinorrhea or epistaxis. NECK: Supple. CHEST: Speaking in full sentences. No respiratory distress. HEART: Regular rate and rhythm. . ABDOMEN: Soft, nondistended. EXTREMITIES: Normal range of motion. No edema. SKIN: Warm, dry, no rash. NEURO: No focal deficits. Alert and oriented x3. Speaks clearly without aphasia or dysarthria. No abnormal movements appreciated. PSYCH: Normal mood and affect. Course Vital Signs Vital signs: Vital Signs Temperature 98.2 F 05/23/24 13:49 Pulse Rate 122 H 05/23/24 13:49 Respiratory Rate 17 05/23/24 13:49 Blood Pressure 116/72 05/23/24 13:49 Pulse Oximetry 98 05/23/24 13:49 Temperature 98.8 F 05/23/24 19:33 Pulse Rate 93 05/23/24 19:33 Respiratory Rate 14 05/23/24 19:33 Blood Pressure 113/79 05/23/24 19:33 Pulse Oximetry 98 05/23/24 19:33 Oxygen Delivery Room Air 05/23/24 14:02 MDM - Seizure MDM Narrative Medical decision making narrative: Patient presents after report of having 2 seizures during which she lost consciousness. Witnessed by a friend who does not present with patient. Patient states she was postictal and confused when she awoke bu
[2024-05-23 16:26] LABS: Basophils Absolute Auto 0.1 K/mm3 (0.0-0.1); Basophils Percent Auto 0.5 % (0.2-1.2); Hematocrit 37.2 % (37.0-47.0); Hemoglobin 12.8 g/dL (12.0-15.0); Immature Granulocyte Absolute 0.04 K/mm3 (0.00-0.031); Immature Granulocyte Percent A 0.3 % (0-0.5); Lymphocytes Absolute Auto 0.67 K/mm3 (0.9-3.2); Lymphocytes Percent Auto 5.5 % (18.3-44.2); Mean Corpuscular HGB Conc 34.4 g/dl (32-36); Mean Corpuscular Hemoglobin 33.2 pg (26-34); Mean Corpuscular Volume 96.4 fl (80-100); Mean Platelet Volume 8.8 fl (7.4-10.4); Monocytes Absolute Auto 0.5 K/mm3 (0.1-0.6); Monocytes Percent Auto 4.3 % (2.6-8.5); Neutrophils Absolute Auto 10.9 K/mm3 (1.3-6.7); Neutrophils Percent Auto 89.4 % (45.5-73.1); Platelet Count Result 289 k/mm3 (150-375); Red Blood Count 3.86 M/mm3 (4.2-5.4); Red Cell Distribution Width 14.1 % (11.5-14.5); White Blood Count 12.2 K/mm3 (4.5-10.0)
[2024-05-23 16:35] LABS: Alanine Aminotransferase 27 U/L (6-35); Albumin Level 4.6 g/dL (3.5-5.1); Alkaline Phosphatase 73 U/L (38-126); Anion Gap 18 mmol/L (4-12); Aspartate Amino Transferase 35 U/L (14-36); Bilirubin,Total 1.2 mg/dL (0.2-1.3); Blood Urea Nitrogen 10 mg/dL (7-17); Calcium 8.4 mg/dL (8.4-10.2); Carbon Dioxide 17 mmol/L (22-30); Chloride 101 mmol/L (98-107); Estimated CRCL calculation 71 ml/min; Estimated Glomerular Filt Rate > 60; Glucose 84 mg/dL (65-110); Magnesium 1.9 mg/dL (1.6-2.3); Potassium 3.9 mmol/L (3.4-5.0); Sodium 136 mmol/L (137-145)
[2024-05-23] MEDS: DEXTROSE 5%/0.9% SOD CHL 1,000 ML 500 ML IV CONT (17:40)
[2024-05-23 18:18] VITALS: BP 123/80; PULSE 87; RESP 16; O2SAT 98
[2024-05-23 19:33] VITALS: BP 113/79; PULSE 93; RESP 14; TEMP 37.1; O2SAT 98
[2024-05-29 12:47] LABS: Topiramate 1.2 mcg/mL
== END 2024-05-23 20:08 | disposition home or self-care (01) ==
PROVIDERS: Emergency Provider Student in an Organized Health Care Education/Training Program
DX: G40.909 Epilepsy, unspecified, not intractable, without status epilepticus (principal); D72.829 Elevated white blood cell count, unspecified; R11.2 Nausea with vomiting, unspecified; Q27.30 Arteriovenous malformation, site unspecified; Z87.820 Personal history of traumatic brain injury; Z91.51 Personal history of suicidal behavior; Z79.899 Other long term (current) drug therapy; R00.0 Tachycardia, unspecified
CPT/HCPCS: 36415; 80053; 80201; 81025; 83735; 85025; 93005; 99283; J7042

== ENCOUNTER 2024-09-18 00:18 | Emergency (ER) | payer BC, SELFPAY ==
[2024-09-18 00:35] VITALS: O2SAT 100
--- NOTE | 2024-09-18 00:48 | ED.NAVMDI ---
HPI - Nausea/Vomiting/Diarrhea General Chief complaint: Nausea/Vomiting/Diarrhea Stated complaint: n/v and sore throat Time Seen by Provider: 09/18/24 00:34 History of Present Illness HPI Narrative: 24-year-old female with a history of seizure disorder, brain bleed in 2009 due to AVM malformation presents to the emergency department for nausea, vomiting and seizures for the past day. Patient states she has had nausea and episodes of vomiting. States she has been taking her lamotrigine but has been vomiting shortly after does not feel like it is absorbing. She states she has had seizures but is unknown, he seizure she has had in the past days. She is unsure what kind of seizures he has been sometime she states they involve her whole body or sometimes just her upper body. She states sometimes she will lose consciousness and symptoms she adams not, however does not believe she has lost consciousness in the past day. She does note that she gets episodes of ?PTSD and shravan vu? prior to her seizure onset. States her last seizure prior to them starting again yesterday was in May of 2024. She is prescribed lamotrigine 200 mg b.i.d., Seroquel 200 mg at night, Lexapro 5 mg daily and clonidine 0.1 mg b.i.d. which she has been taking as directed. Her neurologist is Dr. Galindo STEWARD. She has not had any recent medication changes other than an increase in her Seroquel from 150 mg to 200 mg a couple months ago. No recent head injury or trauma. Denies fever, chest pain or shortness of breath, cough or congestion, dysuria hematuria, focal abdominal pain. She admits to having 3 shots of whiskey today, last shot was approximately 3 hours ago. States she had approximately 5 drinks of alcohol yesterday, however states she normally does not drink alcohol. Admits using marijuana, denies other drug use. Patient is admittedly anxious. Her upper extremities were convulsing intermittently on exam. Patient states she is unsure if this is secondary to seizure activity, anxiety or being cold. Related Data Home Medications Medication Instructions Recorded Confirmed clonidine HCl 0.1 mg tablet 0.1 mg PO BID 03/28/24 03/28/24 escitalopram oxalate 5 mg tablet 5 mg PO DAILY 03/28/24 03/28/24 lamotrigine 200 mg tablet 200 mg PO BID 03/28/24 03/28/24 quetiapine 200 mg tablet 200 mg PO HS 03/28/24 03/28/24 Allergies Allergy/AdvReac Type Severity Reaction Status Date / Time Sulfa (Sulfonamide AdvReac Unknown Verified 09/18/24 00:19 Antibiotics) vancomycin AdvReac Other Verified 09/18/24 00:19 keppra AdvReac Itching Uncoded 05/23/24 20:17 Review of Systems Review of Systems: All systems reviewed & are unremarkable except as noted in HPI and below PMFSH Past Medical History Medical History Congenital arteriovenous malformation Elevated INR 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 HEAD: Normocephalic, atraumatic. EYES: PERRLA and EOMI. ENT: Nares clear, no rhinorrhea or epistaxis. Mucous membranes moist. NECK: Supple. No nuchal rigidity CHEST: Clear to auscultation. No respiratory distress. HEART: Regular rate and rhythm. No murmur heard. Normal peripheral pulses. ABDOMEN: Soft, nontender, nondistended, normal active bowel sounds. EXTREMITIES: Normal range of motion. No edema. SKIN: Warm, dry, no rash. NEURO: No focal deficits. Alert and oriented x3. No dysarthria or aphasia. Decreased sensation to the left V1 distribution which is chronic her patient. Otherwise no cranial nerve defects, strength 5/5 in BUE and BLE. She does have tremors of bilateral upper extremities, worse with intention. These movements seem to come and go during my assessment. No pronator drift. Course Vital Signs Vital signs: Vital Signs Pulse Oximetry 100 09/18/24 00:35 Oxygen Delivery Room Air 09/18/24 00:35 Pulse Rate 90 09/18/24 01:49 Respiratory Rate 18 09/18/24 01:49 Blood Pressure 125/88 09/18/24 01:49 Pulse Oximetry 97 09/18/24 01:49 Oxygen Delivery Room Air 09/18/24 00:35 MDM - Nausea/Vomiting/Diarrhea MDM Narrative Medical decision making narrative: 24-year-old female with history of seizure disorder presents to emergency department for nausea, vomiting and seizures over the past day. See HPI for further history. Vitals are stable. Exam is significant for the above. Patient has no significant neurologic deficits other than intermittent upper extremity tremulousness which patient states is unsure if it is seizure-like activity were due to her anxiety or being cold. Lab work shows no leukocytosis or anemia. Chemistries significant for bicarb of 14 with anion gap of 19 which is likely starvation ketoacidosis. Pt given D5%/LR. Bilirubin is elevated 1.9 which appears chronic. UA with 11-20 wbc's 1+ leuk esterase, 2+ ketones. Patient denies symptoms of UTI, will wait for urine culture results. is negative. Lipase is normal. Mag normal 1.6. ETOH within normal limits at 71. UDS positive for cannabinoids. UPT negative. Pt updated on workup. She received a L of normal saline and a L of D5 LR lows Ativan. Upon re-evaluation she is feeling much better and is resting comfortably in exam bed. The upper extremity shaking has resolved. She is tolerating p.o. intake. Plan to discharge her home with a short course of p.r.n. Zofran and have her follow-up closely with her neurologist. Encouraged increased fluid intake and compliance with her lamotrigine. Discussed strict ED return precautions. She is agreeable to plan verbalized understanding. Discharged in stable condition. Lab Data 09/18/24 01:10 09/18/24 01:10 Labs: Lab Results 09/18/24 09/18/24 09/18/24 Range/Units 01:10 02:06 02:31 WBC 5.9 (4.5-10.0) K/mm3 RBC 4.50 (4.2-5.4) M/mm3 Hgb 14.4 (12.0-15.0) g/dL Hct 41.5 (37.0-47.0) % MCV 92.2 (80-100) fl MCH 32.0 (26-34) pg MCHC 34.7 (32-36) g/dl RDW 14.6 H (11.5-14.5) % Plt Count 259 (150-375) k/mm3 MPV 9.0 (7.4-10.4) fl Immature Gran % (Auto) 0.2 (0-0.5) % Neut % (Auto) 77.2 H (45.5-73.1) % Lymph % (Auto) 17.0 L (18.3-44.2) % [place] % (Auto) 4.4 (2.6-8.5) % Eos % (Auto) 0.2 (0-4.4) % Baso % (Auto) 1.0 (0.2-1.2) % Lymph # (Auto) 1.00 (0.9-3.2) K/mm3 [place] # (Auto) 0.3 (0.1-0.6) K/mm3 Eos # (Auto) 0.0 (0-0.3) K/mm3 Baso # (Auto) 0.1 (0.0-0.1) K/mm3 Abs Immat Gran (auto) 0.01 (0.00-0.031) K/mm3 Absolute Neuts (auto) 4.6 (1.3-6.7) K/mm3 Absolute Nucleated RBC 0.000 (0.0-0.012) K/mm3 Nucleated RBC % 0.0 (0.0-0.2) % Sodium 133 L (137-145) mmol/L Potassium 3.5 (3.4-5.0) mmol/L Chloride 100 (98-107) mmol/L Carbon Dioxide 14 L (22-30) mmol/L Anion Gap 19 H (4-12) mmol/L BUN 9 (7-17) mg/dL Creatinine 0.80 (0.7-1.0) mg/dL Estim Creat Clear Calc 85 ml/min Estimated GFR > 60 (59 - ) Glucose 87 (65-110) mg/dL Calcium 9.0 (8.4-10.2) mg/dL Magnesium 1.6 (1.6-2.3) mg/dL Total Bilirubin 1.9 H (0.2-1.3) mg/dL AST 39 H (14-36) U/L ALT 22 (6-35) U/L Alkaline Phosphatase 86 (38-126) U/L Total Protein 8.0 (6.3-8.2) g/dL Albumin 4.9 (3.5-5.1) g/dL Lipase 85 (23-300) U/L Urine Color Yellow (Yellow) Urine Appearance Cloudy H (Clear) Urine pH 7.0 (5.0-9.0) Ur Specific [place] 1.018 (1.001-1.035) Urine Protein Trace (Negative) mg/dL Urine Glucose (UA) Negative (Negative) mg/dL Urine Ketones 2+ H (Negative) mg/dL Ur Blood (Man) Negative (Negative) Urine Nitrate Negative (Negative) Urine Bilirubin Negative (Negative) Urine Urobilinogen 1.0 (<2.0) mg/dL Leukocyte Esterase Rfl 1+ H (Negative) PAVITHRA/UL Urine RBC 0-2 (0-2) /hpf Urine WBC 11-20 H (0-3) /hpf Ur Squamous Epith Cells Occasional (Few) /hpf Urine Bacteria 4+ /hpf Urine Casts 0-2 POC Urine HCG, Qual Negative (Negative) Urine Opiates Screen Negative (Negative) Urine Methadone Screen Negative (Negative) Ur Barbiturates Screen Negative (Negative) Ur Phencyclidine Scrn Negative (Negative) Ur Amphetamine Screen Negative (Negative) U Benzodiazepines Scrn Negative (Negative) Urine Cocaine Screen Negative (Negative) U Cannabinoids Screen Positive A (Negative) Ethyl Alcohol 71 (<10) mg/dL Influenza A (RT-PCR) Negative (Negative) Influenza B (RT-PCR) Negative (Negative) RSV (RT-PCR) Negative (Negative) SARS-CoV-2 RNA (RT-PCR) Negative (Negative) Discharge Plan Discharge Clinical Impression: Dehydration, Breakthrough seizure Patient Disposition: Home, Self-Care Condition: Stable Instructions: Antibiotic Form, Dehydration (ED), Recurrent Seizures in Adults (ED) Additional Instructions: You were evaluated in the emergency department for nausea, vomiting and seizures. Your workup is significant for dehydration. You were given 2 L of fluids, nausea medicine and ativan. I have sent Zojerry to the pharmacy, please take this as directed. Please make sure to drink plenty of fluids including water, Gatorade and Pedialyte. Make sure to take her lamotrigine daily as directed. Follow-up with your neurologist. Return to the emergency department if you develop vision changes, focal numbness or weakness, altered mental status, fever, uncontrollable seizures or other concerning symptoms. Prescriptions: New ondansetron 4 mg tablet,disintegrating 4 mg PO Q8H Qty: 7 0RF No Action doxycycline hyclate 100 mg capsule 100 mg PO BID Qty: 28 0RF clonidine HCl 0.1 mg tablet 0.1 mg PO BID lamotrigine 200 mg tablet 200 mg PO BID quetiapine 200 mg tablet 200 mg PO HS escitalopram oxalate 5 mg tablet 5 mg PO DAILY ondansetron 4 mg tablet,disintegrating 4 mg PO Q8H PRN (Reason: nausea and vomiting) Qty: 7 0RF Follow-up/Referrals: PHYSICIAN NOT ON STAFF,NONSTAFF [Primary Care Provider] -
[2024-09-18] MEDS: LORazepam INJ (*CRX) 2 MG/ML VIAL 1 MG IV PUSH (01:09)
[2024-09-18] MEDS: ONDANSETRON INJ 4 MG/2 ML VIAL IV PUSH (01:10)
[2024-09-18] MEDS: SODIUM CHLORIDE 0.9% IV 1,000 ML 999 ML IV CONT (01:10)
[2024-09-18 01:18] LABS: Basophils Absolute Auto 0.1 K/mm3 (0.0-0.1); Eosinophils Percent Auto 0.2 % (0-4.4); Hematocrit 41.5 % (37.0-47.0); Hemoglobin 14.4 g/dL (12.0-15.0); Immature Granulocyte Absolute 0.01 K/mm3 (0.00-0.031); Immature Granulocyte Percent A 0.2 % (0-0.5); Mean Corpuscular HGB Conc 34.7 g/dl (32-36); Mean Corpuscular Volume 92.2 fl (80-100); Monocytes Absolute Auto 0.3 K/mm3 (0.1-0.6); Monocytes Percent Auto 4.4 % (2.6-8.5); Neutrophils Absolute Auto 4.6 K/mm3 (1.3-6.7); Neutrophils Percent Auto 77.2 % (45.5-73.1); Platelet Count Result 259 k/mm3 (150-375); Red Cell Distribution Width 14.6 % (11.5-14.5); White Blood Count 5.9 K/mm3 (4.5-10.0)
[2024-09-18 01:27] LABS: Alanine Aminotransferase 22 U/L (6-35); Albumin Level 4.9 g/dL (3.5-5.1); Alkaline Phosphatase 86 U/L (38-126); Anion Gap 19 mmol/L (4-12); Aspartate Amino Transferase 39 U/L (14-36); Bilirubin,Total 1.9 mg/dL (0.2-1.3); Blood Urea Nitrogen 9 mg/dL (7-17); Carbon Dioxide 14 mmol/L (22-30); Chloride 100 mmol/L (98-107); Estimated CRCL calculation 85 ml/min; Estimated Glomerular Filt Rate > 60; Glucose 87 mg/dL (65-110); Lipase 85 U/L (23-300); Magnesium 1.6 mg/dL (1.6-2.3); Potassium 3.5 mmol/L (3.4-5.0); Sodium 133 mmol/L (137-145)
[2024-09-18 01:40] LABS: Ethanol 71 mg/dL (<10)
[2024-09-18 01:49] VITALS: BP 125/88; PULSE 90; RESP 18; O2SAT 97
[2024-09-18 01:53] LABS: Influenza A QL RT-PCR Negative (Negative); Influenza B QL RT-PCR Negative (Negative); RSV RNA, RT-PCR Negative (Negative); SARS-CoV-2 RNA PCR Negative (Negative)
[2024-09-18 02:18] LABS: Add Urine Microscopic? YES; Appearance Urine Cloudy (Clear); Bacteria Urine 4+ /hpf; Bilirubin Urine Negative (Negative); Blood Urine Negative (Negative); Color Urine Yellow (Yellow); Glucose Urine UA Negative (Negative); Ketones Urine 2+ mg/dL (Negative); Leukocyte Esterase Ur 1+ LEU/UL (Negative); Nitrate Urine Negative (Negative); Non Pathogenic Casts 0-2; Protein Urine Trace mg/dL (Negative); RBC Urine 0-2 /hpf (0-2); Specific Grav Ur 1.018 (1.001-1.035); Squamous Epithelial Cell Urine Occasional /hpf (Few)
[2024-09-18 02:31] LABS: Amphetamine Screen Urine Negative (Negative); Barbiturate Screen Urine Negative (Negative); Benzodiazepines Screen Urine Negative (Negative); Cannabinoid Screen Urine Positive (Negative); Cocaine Screen Urine Negative (Negative); Methadone Screen Urine Negative (Negative); Opiate Screen Urine Negative (Negative); Phencyclidine Screen Urine Negative (Negative)
[2024-09-18 02:34] LABS: BEDSIDEPREGUCG Negative (Negative)
[2024-09-18] MEDS: DEXTROSE 5%/LACTATED RINGERS 1,000 ML 999 ML IV CONT (02:34)
[2024-09-18 03:25] VITALS: BP 112/78; PULSE 66; RESP 18; TEMP 36.9; O2SAT 98
== END 2024-09-18 03:52 | disposition home or self-care (01) ==
PROVIDERS: Emergency Provider Physician Assistant
DX: G40.909 Epilepsy, unspecified, not intractable, without status epilepticus (principal); E86.0 Dehydration; Z20.822 Contact with and (suspected) exposure to COVID-19; Z87.820 Personal history of traumatic brain injury; Z86.73 Personal history of transient ischemic attack (TIA), and cerebral infarction without residual deficits; Z87.74 Personal history of (corrected) congenital malformations of heart and circulatory system; Z79.899 Other long term (current) drug therapy
CPT/HCPCS: 36415; 80053; 80307; 81001; 81025; 82077; 83690; 83735; 85025; 87077; 87086; 87186; 87637; 96361; 96374; 96375; 99284; J2060; J2405; J7030; J7121

== ENCOUNTER 2024-10-11 12:35 | Emergency (ER) | payer BC, SELFPAY ==
[2024-10-11] VITALS (14 sets, daily range): BP systolic 116–142; BP diastolic 58–98; PULSE 72–118; RESP 12–20; TEMP 36.4–36.6; O2SAT 97–100
--- NOTE | ~2024-10-11 | CT_ITS ---
EXAMINATION: CT brain wo con DATE: 10/11/2024 16:26 INDICATION: Headache. Seizure. TECHNIQUE: Computed tomography (CT) of the head was performed without intravenous contrast. The mA wa s adjusted according to patient size. Iterative reconstruction technique was employed. The dose-lengt h product was 605.33 mGy-cm. COMPARISON: Head CT 04/12/2024 FINDINGS: There is chronic encephalomalacia in left temporal lobe. There are changes of left-sided cr aniotomy. There is embolization material in the left temporal lobe. There is an old ventriculostomy t ract in right frontal lobe. There is no intracranial hemorrhage, acute infarction, or abnormal intrac ranial mass lesion. The ventricles are normal in size. The orbits are normal. There is mild mucosal t hickening in the ethmoid sinuses. The mastoid air cells are normal. IMPRESSION: 1. 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 2. 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 Reviewed, dictated and finalized at location [facility]
[2024-10-11 13:46] LABS: Basophils Absolute Auto 0.1 K/mm3 (0.0-0.1); Basophils Percent Auto 0.5 % (0.2-1.2); Eosinophils Percent Auto 0.1 % (0-4.4); Hematocrit 43.7 % (37.0-47.0); Hemoglobin 14.8 g/dL (12.0-15.0); Immature Granulocyte Absolute 0.03 K/mm3 (0.00-0.031); Immature Granulocyte Percent A 0.3 % (0-0.5); Lymphocytes Absolute Auto 0.74 K/mm3 (0.9-3.2); Lymphocytes Percent Auto 7.5 % (18.3-44.2); Mean Corpuscular HGB Conc 33.9 g/dl (32-36); Mean Corpuscular Volume 94.4 fl (80-100); Mean Platelet Volume 9.5 fl (7.4-10.4); Monocytes Absolute Auto 0.3 K/mm3 (0.1-0.6); Monocytes Percent Auto 2.8 % (2.6-8.5); Neutrophils Absolute Auto 8.8 K/mm3 (1.3-6.7); Neutrophils Percent Auto 88.8 % (45.5-73.1); Platelet Count Result 267 k/mm3 (150-375); Red Blood Count 4.63 M/mm3 (4.2-5.4); Red Cell Distribution Width 14.8 % (11.5-14.5); White Blood Count 9.9 K/mm3 (4.5-10.0)
[2024-10-11 14:00] LABS: Lactic Acid Reflex 1.7 mmol/L (0.7-2.0)
[2024-10-11 14:01] LABS: Alanine Aminotransferase 36 U/L (6-35); Albumin Level 5.1 g/dL (3.5-5.1); Alkaline Phosphatase 124 U/L (38-126); Anion Gap 7 mmol/L (4-12); Aspartate Amino Transferase 62 U/L (14-36); Bilirubin,Total 2.1 mg/dL (0.2-1.3); Blood Urea Nitrogen 13 mg/dL (7-17); Calcium 9.2 mg/dL (8.4-10.2); Carbon Dioxide 22 mmol/L (22-30); Chloride 106 mmol/L (98-107); Estimated CRCL calculation 79 ml/min; Estimated Glomerular Filt Rate > 60; Glucose 101 mg/dL (65-110); Lipase 112 U/L (23-300); Potassium 4.4 mmol/L (3.4-5.0); Sodium 135 mmol/L (137-145)
[2024-10-11 14:10] LABS: Add Urine Microscopic? YES; Appearance Urine Cloudy (Clear); Bacteria Urine 4+ /hpf; Bilirubin Urine Negative (Negative); Blood Urine 2+ (Negative); Color Urine Yellow (Yellow); Glucose Urine UA Negative (Negative); Ketones Urine 1+ mg/dL (Negative); Leukocyte Esterase Ur Trace LEU/UL (Negative); Need Manual Microscopic Reviewed; Nitrate Urine Positive (Negative); Protein Urine 1+ mg/dL (Negative); RBC Urine 0-2 /hpf (0-2); Specific Grav Ur 1.022 (1.001-1.035); Squamous Epithelial Cell Urine Moderate /hpf (Few); Urobilinogen Urine 0.2 mg/dL (<2.0); pH Urine 5.5 (5.0-9.0)
[2024-10-11 14:15] LABS: BEDSIDEPREGUCG Negative (Negative)
--- NOTE | 2024-10-11 15:56 | ED_ITS ---
HPI - Seizure General Chief Complaint: Seizure Stated Complaint: seizure Time Seen by Provider: 10/11/24 14:41 Source: patient and other Mode of arrival: ambulatory Limitations: no limitations History of Present Illness HPI Narrative: patient presents with report of a seizure Occurring at approximately 11:45 a.m.. She stated she was not feeling right and her friend/ partner did witness her a generalized seizure that lasted approximately 1-2 minutes and aborted on its own. She then had a headache after the seizure and has not yet taken any medications for this headache. She has a history of a seizure disorder as well as a history of AVM. The friend did note that she had some scant blonde on the pillow, possibly from superficially biting her cheek but she otherwise denies any tongue trauma. No incontinence of bowel or bladder. no urinary symptoms. She does have heavy menses. Her neurologist is through [facility], Dr Sierra. she is on lamotrigine she for neurological issues but she does admit that she has missed a few doses her neurologist and her have also been titrating and changing these medications for better control. Related Data Home Medications ?Medication ?Instructions ?Recorded ?Confirmed ?Last Taken ?Type clonidine HCl 0.1 mg tablet 0.1 mg PO BID 03/28/24 03/28/24 Unknown History escitalopram oxalate 5 mg tablet 5 mg PO DAILY 03/28/24 03/28/24 Unknown History lamotrigine 200 mg tablet 200 mg PO BID 03/28/24 03/28/24 Unknown History quetiapine 200 mg tablet 200 mg PO HS 03/28/24 03/28/24 Unknown History Allergies Allergy/AdvReac Type Severity Reaction Status Date / Time Sulfa (Sulfonamide AdvReac Unknown Verified 09/18/24 00:19 Antibiotics) vancomycin AdvReac Other Verified 09/18/24 00:19 keppra AdvReac Itching Uncoded 05/23/24 20:17 [facility] Past Medical History Medical History Congenital arteriovenous malformation Elevated INR History of traumatic brain injury May 2010 Liver failure, acute Seizure disorder Suicidal overdose Social History Social History Smoking status: Never smoker Alcohol intake: current Substance use: current Substance use type: marijuana Spiritual care concerns: No Exam 2 Narrative: GENERAL: Well-appearing, well-nourished, and in no acute distress. HEAD: Normocephalic, atraumatic. EYES: Non injected, non icteric. PERRL. ENT: Nares clear, no rhinorrhea or epistaxis. no obvious trauma/laceration to the tongue NECK: Supple. CHEST: Speaking in full sentences. No respiratory distress. HEART: Tachycardic rate and rhythm. . ABDOMEN: Soft, nondistended. EXTREMITIES: Normal range of motion. No lower extremity edema. SKIN: Warm, dry, no rash. NEURO: No focal deficits. Alert and oriented x3. Tongue protrudes midline without deviation. Speaks clearly without aphasia or dysarthria. Sensation intact throughout. No abnormal movements appreciated. PSYCH: Normal mood and affect. Course Vital Signs Vital signs: Vital Signs Temperature 97.5 F L 10/11/24 12:35 Pulse Rate 118 H 10/11/24 12:35 Respiratory Rate 20 10/11/24 12:35 Blood Pressure 142/90 H 10/11/24 12:35 Pulse Oximetry 98 10/11/24 12:35 Oxygen Delivery Room Air 10/11/24 12:35 Temperature 97.6 F 10/11/24 18:03 Pulse Rate 76 10/11/24 18:03 Respiratory Rate 16 10/11/24 18:03 Blood Pressure 124/80 10/11/24 18:03 Pulse Oximetry 98 10/11/24 18:03 Oxygen Delivery Room Air 10/11/24 14:19 MDM - Seizure MDM Narrative Medical decision making narrative: patient presents with report of a seizure. She has a history of seizure disorder as well as a history of congenital AVM. Seizure lasted 1-2 minutes an aborted on its own and she now has a postictal headache. In the emergency department she is afebrile with vital signs notable for tachycardia and hypertension however those both resolved on 2nd assessment. test negative. Patient does have bacteria in urine however does appear to be contaminated patient denies any dysuria hematuria, incomplete voiding sensation, or urgency. she has had increased frequency but this is because she has been drinking of water. Given this, will defer treating asymptomatic bacteriuria and hold for urine culture To decide if antibiotics are necessary. Patient is informed about this. Due to underlying vascular issue, CT head obtain full patient given acetaminophen for headache. Once negative for acute intracranial hemorrhage, headache cocktail of medications is ordered. Patient is reassessed states her headache is improved. Stable for discharge. Advised follow-up with her neurologist. She verifies understanding and is in agreement. Provided prescriptions for [id number] analgesic medications. Differential Diagnosis Differential diagnosis: Likely intractable seizure disorder, generalized seizure, epileptic seizure and other (; intracranial hemorrhage secondary to AVM; subtherapeutic antiepileptic drug) Lab Data Attestation: I reviewed the patient's lab results. 10/11/24 13:35 10/11/24 13:35 Labs: Lab Results 10/11/24 10/11/24 Range/Units 13:35 14:14 WBC 9.9 (4.5-10.0) K/mm3 RBC 4.63 (4.2-5.4) M/mm3 Hgb 14.8 (12.0-15.0) g/dL Hct 43.7 (37.0-47.0) % MCV 94.4 (80-100) fl MCH 32.0 (26-34) pg MCHC 33.9 (32-36) g/dl RDW 14.8 H (11.5-14.5) % Plt Count 267 (150-375) k/mm3 MPV 9.5 (7.4-10.4) fl Immature Gran % (Auto) 0.3 (0-0.5) % Neut % (Auto) 88.8 H (45.5-73.1) % Lymph % (Auto) 7.5 L (18.3-44.2) % [place] % (Auto) 2.8 (2.6-8.5) % Eos % (Auto) 0.1 (0-4.4) % Baso % (Auto) 0.5 (0.2-1.2) % Lymph # (Auto) 0.74 L (0.9-3.2) K/mm3 [place] # (Auto) 0.3 (0.1-0.6) K/mm3 Eos # (Auto) 0.0 (0-0.3) K/mm3 Baso # (Auto) 0.1 (0.0-0.1) K/mm3 Abs Immat Gran (auto) 0.03 (0.00-0.031) K/mm3 Absolute Neuts (auto) 8.8 H (1.3-6.7) K/mm3 Absolute Nucleated RBC 0.000 (0.0-0.012) K/mm3 Nucleated RBC % 0.0 (0.0-0.2) % Sodium 135 L (137-145) mmol/L Potassium 4.4 (3.4-5.0) mmol/L Chloride 106 (98-107) mmol/L Carbon Dioxide 22 (22-30) mmol/L Anion Gap 7 (4-12) mmol/L BUN 13 (7-17) mg/dL Creatinine 0.90 (0.7-1.0) mg/dL Estim Creat Clear Calc 79 ml/min Estimated GFR > 60 (59 - ) Glucose 101 (65-110) mg/dL Lactic Acid 1.7 (0.7-2.0) mmol/L Calcium 9.2 (8.4-10.2) mg/dL Total Bilirubin 2.1 H (0.2-1.3) mg/dL AST 62 H (14-36) U/L ALT 36 H (6-35) U/L Alkaline Phosphatase 124 (38-126) U/L Total Protein 8.0 (6.3-8.2) g/dL Albumin 5.1 (3.5-5.1) g/dL Lipase 112 (23-300) U/L Urine Color Yellow (Yellow) Urine Appearance Cloudy H (Clear) Urine pH 5.5 (5.0-9.0) Ur Specific [place] 1.022 (1.001-1.035) Urine Protein 1+ H (Negative) mg/dL Urine Glucose (UA) Negative (Negative) mg/dL Urine Ketones 1+ H (Negative) mg/dL Ur Blood (Man) 2+ H (Negative) Urine Nitrate Positive H (Negative) Urine Bilirubin Negative (Negative) Urine Urobilinogen 0.2 (<2.0) mg/dL Add Ur Microanalysis Reviewed Leukocyte Esterase Rfl Trace H (Negative) PAVITHRA/UL Urine RBC 0-2 (0-2) /hpf Urine WBC 11-20 H (0-3) /hpf Ur Squamous Epith Cells Moderate (Few) /hpf Urine Bacteria 4+ H /hpf Urine Casts 3-5 POC Urine HCG, Qual Negative (Negative) Urine Opiates Screen Negative (Negative) Urine Methadone Screen Negative (Negative) Ur Barbiturates Screen Negative (Negative) Ur Phencyclidine Scrn Negative (Negative) Ur Amphetamine Screen Negative (Negative) U Benzodiazepines Scrn Negative (Negative) Urine Cocaine Screen Negative (Negative) U Cannabinoids Screen Positive A (Negative) Imaging Data Radiologist's impression: IMPRESSION: 1. 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 2. 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 Discharge Plan Discharge Clinical Impression: Seizure, Post-seizure headache, Encephalomalacia on imaging study, Marijuana use Patient Disposition: Home, Self-Care Condition: Stable Instructions: Antibiotic Form, Acute Headache (DC), Cannabis Use Disorder (ED), Recurrent Seizures in Adults (ED) Additional Instructions: As we discussed, it is very important that you make an appointment to follow-up with your neurologist through [facility], Dr Sierra to see if your antiepileptic drug regimen needs to be changed. For now, it is very important that you take the medications as prescribed. Acetaminophen/Tylenol (maximum 4000 mg per day) is safe to take with NSAIDs (ibuprofen/Motrin) for pain/headache relief. Return to the emergency department with any new or worsening symptoms. Patient Language: Bruneian Prescriptions: New acetaminophen 500 mg capsule 1,000 mg PO Q6H PRN (Reason: pain) Qty: 30 0RF ibuprofen 600 mg tablet 600 mg PO TID PRN (Reason: pain) Qty: 30 0RF No Action doxycycline hyclate 100 mg capsule 100 mg PO BID Qty: 28 0RF clonidine HCl 0.1 mg tablet 0.1 mg PO BID lamotrigine 200 mg tablet 200 mg PO BID quetiapine 200 mg tablet 200 mg PO HS escitalopram oxalate 5 mg tablet 5 mg PO DAILY ondansetron 4 mg tablet,disintegrating 4 mg PO Q8H PRN (Reason: nausea and vomiting) Qty: 7 0RF ondansetron 4 mg tablet,disintegrating 4 mg PO Q8H Qty: 7 0RF Follow-up/Referrals: UNKNOWN,DOCTOR [Primary Care Provider] - Stand Alone Forms: Work/School Release IP Time of Disposition: 18:21
[2024-10-11] MEDS: ACETAMINOPHEN 500 MG TABLET 1000 MG PO (16:39)
[2024-10-11] MEDS: SODIUM CHLORIDE 0.9% IV 100 ML 400 ML (17:12)
[2024-10-11] MEDS: diphenhydrAMINE HCl INJ 50 MG/ML VIAL 25 MG IV PUSH (17:12)
[2024-10-11] MEDS: PROCHLORPERAZINE EDISYLATE 10 MG/2 ML VIAL IV PUSH (17:12)
[2024-10-11] MEDS: KETOROLAC 15 MG/ML VIAL (*BKC) IV PUSH (17:12)
[2024-10-11 17:17] LABS: Amphetamine Screen Urine Negative (Negative); Barbiturate Screen Urine Negative (Negative); Benzodiazepines Screen Urine Negative (Negative); Cannabinoid Screen Urine Positive (Negative); Cocaine Screen Urine Negative (Negative); Methadone Screen Urine Negative (Negative); Opiate Screen Urine Negative (Negative); Phencyclidine Screen Urine Negative (Negative)
[2024-10-11] MEDS: lamoTRIgine 100 MG TABLET 200 MG PO (18:38)
[2024-10-11] MEDS: dexAMETHasone 2 MG TABLET 10 MG PO (18:39)
== END 2024-10-11 18:55 | disposition home or self-care (01) ==
PROVIDERS: Emergency Medicine; Emergency Provider Student in an Organized Health Care Education/Training Program
DX: G40.909 Epilepsy, unspecified, not intractable, without status epilepticus (principal); R51.9 Headache, unspecified; G93.89 Other specified disorders of brain; F12.90 Cannabis use, unspecified, uncomplicated
CPT/HCPCS: 36415; 70450; 80053; 80307; 81001; 81025; 83605; 83690; 85025; 87077; 87086; 87186; 96361; 96374; 96375; 99284; A9270; J0780; J1200; J1885; J8540

== ENCOUNTER 2024-12-12 10:40 | Emergency (ER) | payer BC, SELFPAY ==
--- NOTE | ~2024-12-12 | CT_ITS ---
EXAMINATION: CT brain wo con DATE: 12/12/2024 13:01 INDICATION: Head injury. TECHNIQUE: Computed tomography (CT) of the head was performed without intravenous contrast. The mA wa s adjusted according to patient size. Iterative reconstruction technique was employed. The dose-lengt h product was 529.67 mGy-cm. COMPARISON: Head CT 10/11/24 FINDINGS: There is chronic encephalomalacia in left temporal lobe. There are changes of left-sided cr aniotomy. There is an old ventriculostomy tract in the right frontal lobe. There is no intracranial h emorrhage, acute infarction, or abnormal intracranial mass lesion. There is ex vacuo dilatation of te mporal horn of left lateral ventricle. There is mild mucosal thickening in the paranasal sinuses. The mastoid air cells are normal. IMPRESSION: 1. Chronic encephalomalacia in the left temporal lobe. 2. 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 Reviewed, dictated and finalized at location A. M TENENS
--- NOTE | ~2024-12-12 | XR_ITS ---
Right ankle Technique: AP, oblique, and lateral views were obtained. Clinical History: Pain Findings: There is acute, oblique fracture of the distal fibula, nearly nondisplaced. Ankle mortise a nd other visualized joint spaces are preserved. Lateral soft tissue swelling noted. Impression: Acute distal fibular fracture, as above. Lateral soft tissue swelling. Reviewed, dictated and finalized at location . [facility] DIRECT[facility] Impression: Acute distal fibular fracture, as above. Lateral soft tissue swelling.
--- NOTE | ~2024-12-12 | XR_ITS ---
EXAMINATION: XR tibia fibula RT 2V, XR foot RT min 3V DATE: 12/12/2024 13:11 INDICATION: Right foot and lower leg pain post fall down stairs TECHNIQUE: 1. AP and lateral views of the right tibia and fibula were obtained. 2. Dorsal plantar, lateral and 2 oblique views of the right foot were obtained. COMPARISON: None. FINDINGS: Couple millimeter posterior displacement of an oblique fracture of the lateral malleolus. No other fr actures identified. Alignment remains otherwise normal with congruent ankle with this. Joint space at the right knee, foot and ankle are normal. No evident ankle joint effusion. Soft tissue swelling abo ut the lateral ankle and distal lower leg. IMPRESSION: 1. Minimally displaced Castro type B fracture of the right lateral malleolus. Reviewed, dictated and finalized at location A. 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 Minimally displaced Castro type B fracture of the right lateral malleolus.
[2024-12-12 10:43] VITALS: BP 137/84; PULSE 122; RESP 20; TEMP 36.3; O2SAT 97
--- OUTSIDE RECORDS SUMMARY | 2024-12-12 10:57 | XMS_ITS | Clinical Summary ---
Author Organization [facility] Address [address] [place] [address] Care Team Providers Care Vocational Rehabilitation Specialist Name Role Phone Sabrina Boyer PA-C Primary Care Provider [phone] Allergies Active Allergy Reactions Criticality Noted Date Comments Levetiracetam Other (see comment) 09/29/2021 Suicidal ideation Nickel Rash Low 09/29/2021 Sulfa Antibiotics Redness 09/29/2021 Vancomycin Unknown 09/03/2020 Medications ondansetron (ZOFRAN) 4 MG tablet Take 1 tablet (4 mg total) by mouth every 8 (eight) hours as needed for Nausea. Active vitamin B-12 (CYANOCOBALAMIN ) 500 MCG tablet Take 1 tablet (500 mcg total) by mouth daily. Active betamethasone dipropionate, augmented, (DIPROLENE) 0.05 % lotion Apply topically 2 (two) times daily as needed for Other (Eczema). Active QUEtiapine Fumarate 150 MG Tab Take 150 mg by mouth nightly at bedtime. Active Social History Tobacco Use Types Packs/Day Years Used Date Smoking Tobacco: Never Smokeless Tobacco: Never Tobacco Cessation:Counseling Given: Not Answered Alcohol Use Standard Drinks/Week Comments Yes 0 (1 standard drink = 0.6 oz pur e alcohol) kerry AUDIT-C Answer Date Recorded Q1: How often do you have a drink containing alc ohol? Never 09/03/2020 Average Number of Drinks Not on file 020 Frequency of Binge Drinking Not on file 08/07 Comments No Sex and Gender Information Value Date Recorded Sex Assigned at Not on file Legal Sex Female 7:05 PM CDT Gender Identity Not on file Sexual Orientation Not on file Last Filed Vital Signs Vital Sign Reading Time Taken Comments Blood Pressure 165/135 08/01/2023 10:15 PM CDT Pulse 104 08/01/2023 10:15 PM CDT Temperature 36.9 C (98.4 F) 08/01/2023 4:10 PM CDT Respiratory Rate 16 08/01/2023 10:15 PM CDT Oxygen Saturation 99% 08/01/2023 10:15 PM CDT Inhaled Oxygen Concentration - - Weight 59 kg (130 lb) 08/01/2023 4:10 PM CDT Height 165.1 cm (5' 5 ) 08/01/2023 4:10 PM CDT Body Mass Index 21.63 08/01/2023 4:10 PM CDT Plan of Treatment Health Maintenance Due Date Last Done Comments Cervical Cancer Screening Pap Smear (Age 21 to 29) Every 3 Years 2000 Cervical Cancer Screening 2000 Annual Physical 01/13/2003 Hepatitis C 01/13/2018 COVID-19 Vaccine ( season) 2024 Influenza Adult (#1) 2024 DTaP, Tdap and Td Vaccines (8 - Td or Tdap) 02/07/2033 02/07/2023, 08/03/2012, 06/20/2005, Additional history exists Hepatitis B Vaccines Completed 01/26/2001, 2000, 2000 Pneumococcal Vaccine: Pediatrics (0 to 5 Years) and At-Risk Patients (6 to 64 Years) Aged Out 04/27/2001, 01/26/2001 No longer eligibl e based on patient's age to complete this topic Meningococcal Vaccine Completed 07/07/2017 HPV Vaccines Completed 02/07/2023, 06/07, 04/25/2018 Meningococcal B Vaccine Aged Out No l onger eligible based on patient's age to complete this topic RSV Immunizations Under 20 Months Aged Out No longer eligible based on patient's age to complete this topic Insurance [facility] Care Teams Vocational Rehabilitation Specialist Relationship Specialty Start Date End Date Sabrina Boyer PA-C [address] [place] [address] 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
--- OUTSIDE RECORDS SUMMARY | 2024-12-12 10:57 | XMS_ITS | Clinical Summary ---
Author Organization [facility] Main [facility] s Address [address] [place] [address] Care Team Providers Care Hogshead Press Operator Name Role Phone Sabrina Boyer Primary Care Provider [phone] Allergies Active Allergy Reactions Criticality Noted Date Comments Levetiracetam Other (See comments) Low 09/29/2021 Suicidal ideation Nickel Rash Medium 09/18/2020 Sulfa (Sulfonamide Antibiotics) Other (See comments),Rash,Unkno wn,Redness Medium 09/24/2019 Reaction: Sulfamethoxazole-Trimeth oprim Vancomycin Other (See comments),Rash,Unkno wn Medium 09/03/2020 Reaction: Colin syndrome Medications famotidine (PEPCID) 20 mg tablet Take 1 tablet (20 mg total) by mouth 2 (two) times a day 1 Active betamethasone dipropionate (DIPROLENE) 0.05 % lotionIndications :Dermatitis Apply topically daily as needed (dermatitis) 60 mL 1 2 Active ondansetron (Zofran) 4 mg tabletIndications :Nausea Take 1 tablet (4 mg total) by mouth every 8 (eight) hours as needed for nausea or vomiting 10 tablet 3 Active cyanocobalamin (Vitamin B-12) 500 mcg tablet Take 1 tablet (500 mcg total) by mouth daily 90 tablet 1 3 Active traMADoL (ULTRAM) 50 mg tablet Take 1 tablet (50 mg total) by mouth every 6 (six) hours 20 tablet 4 Active cloNIDine (CATAPRES) 0.1 mg tablet Take 1 tablet (0.1 mg total) by mouth 2 (two) times a day 4 Active escitalopram (LEXAPRO) 5 mg tablet 4 Active QUEtiapine (SEROquel) 200 mg tablet Take 1 tablet (200 mg total) by mouth nightly at bedtime 4 Active QUEtiapine (SEROquel) 25 mg tablet TAKE 1/2 TABLET BY MOUTH IN THE MORNING AND AFTERNOON NEEDED 4 Active polyethylene glycol (MIRALAX) 17 gram/dose bulk powderIndications :constipation Take 34 g by mouth daily 1020 g 4 Active senna (SENOKOT) 8.6 mg tabletIndications :Constipation, unspecified constipation type Take 2 tablets by mouth daily 60 tablet 4 Active multivitamin-iron -folic acid (Daily Multivitamin with Iron) 18-400 mg-mcg tablet Take 1 tablet by mouth daily Active thiamine HCl (THIAMINE, VITAMIN B1, 100 MG TABLET, SO,) Take 100 mg by mouth daily 4 Active doxycycline hyclate 100 mg capsule 4 Active folic acid (FOLVITE) 1 mg tablet Take 1 tablet (1 mg total) by mouth daily 4 Active lamoTRIgine (LaMICtal) 200 mg tablet [address] (PROTONIX) 40 mg EC tablet Take 1 tablet (40 mg total) by mouth daily 4 Active topiramate (TOPAMAX) 25 mg tablet 25 mg daily for 2 days, then 25 mg twice daily for 2 days, then 50 mg in the morning and 25 mg in the evening for 2 days, then 50 mg twice daily for 2 days, then 75 mg in the morning and 50 mg in the evening for 2 days, then 75 mg twice daily for 2 days, then 100 mg in the morning and 75 mg in the evening for 2 days, then 100 mg twice daily until otherwise instructed. 4 Active vilazodone (VIIBRYD) 20 mg tablet Take 1 tablet (20 mg total) by mouth daily Active valACYclovir (VALTREX) 1 gram tabletIndications :H/O cold sores TAKE 2 TABLETS(2000 MG) BY MOUTH TWICE DAILY FOR 1 DAY 4 tablet 5 4 Active Hospital, Clinic, or Other Facility Administered Medication Ordered Dose Route Frequency Start Date End Date Status levonorgestreL (KYLEENA) 17.5 mcg/24 hrs (5 yrs) 19.5 mg IUD 1 eachIndications:Pre gnancy Contraception 1 each intrauterine Continuous (implanted device) 10/23/2023 Active etonogestreL (NEXPLANON) implant 68 mgIndications:Pregn martin Contraception 68 mg subderm Continuous (implanted device) 05/08/2024 7 Active Active Problems Problem Noted Date Diagnosed Date Dermatitis 07/01/2022 H/O cold sores 07/01/2022 Breakthrough seizure (CMS/HCC) 06/25/2022 Routine adult health maintenance 06/14/2022 Overview (02/07/2023): Health Maintenance: -PCV20: N/A -Tdap vaccine: -Influenza vaccine: due -Shingles vaccine: N/A -Colonoscopy: N/A -Last WWE: 02/07/23 -Last Mammogram: N/A -Last DEXA: N/A -Last eye exam: N/A -Last MHA: N/A Anxiety with somatization 05/26/2021 Unspecified mood (affective) disorder 03/24/2021 Assessment & Plan (03/24/2021 5:37 PM CDT): 21 y.o. single, employed part-time applying for disability, domiciled, White female with a history of PTSD, anxiety, depression, medical MJ use, recently diagnosed epilepsy with extensive past neurosurgical/plastic surgery interventions (last 2015) who presents with acute exacerbation of her chronic passive SI in the setting of poor antiepileptic medication tolerance and recent psychosocial stressors. Longitudinal history is notable for significant emotional dysregulation suggestive of borderline personality pathology but also comorbid to PTSD with chronic negative changes in cognition/mood/arousal/reactivity (e.g., persistent exaggerated negative beliefs/expectations about self/others/world, distorted cognitions about cause/consequences of past traumas leading to excessive blame on others, negative emotional state, subjective detachment/estrangement from others, marked irritability with angry outbursts, concentration difficulties, sleep disturbance) and overall unstable interpersonal relationships and affects with recurrent suicidal gestures/threats. Presentation may be related to subtherapeutic antidepressant therapy and/or adverse effect of Trileptal, recent severe menstrual cramping, recent argument with father, depressive effects of recent alcohol ingestion, adjustment disorder 2/2 recent epilepsy diagnosis and associated psychosocial stressors, and/or other factors. Accordingly, will provisionally diagnose an unspecified affective disorder though do consider patient to meet criteria for PTSD with symptoms above as well as flashbacks, nightmares, and distress associated with cues and associated avoidance. The acute exacerbation of her chronic suicidality appears to have stabilized with sobriety from recent alcohol ingestion, therapeutic discussion and validation of her recent stressors, and improved tolerance of her antiepileptic medication with Zofran co-administration. Patient does appear to maladaptively employ detailed suicidal/homicidal planning as a means of coping with her emotional dysregulation, leading to a high overall risk of harm associated with this, but the absence of a history of actual suicide attempts or significant violence is protective in a limited manner. She is legally restricted from driving while not yet stably on an antiepileptic regimen and does not have access to firearms or weapons. Given patient's relatively poor tolerance of Cymbalta 30 mg daily at both QHS and QAM dosing, will defer any dose adjustment at this time to her outpatient psychiatrist, especially with recent initiation of Trileptal. Patient would most benefit from long-term dialectical behavioral therapy (DBT) as well as dedicated PTSD-focused psychotherapy. Risk Assessment: At this time, the patient has the following factors present: Risk factors: poor social support, depression/anhedonia, alcohol use, substance use (cannabis), recent hospitalization for seizure management, childhood physical/emotional trauma and psychosocial stressors, chronic passive suicidal ideation with suicidal/homicidal planning as a chronic maladaptive coping mechanism Protective factors: healthy sense of purpose, supportive relationships (grandmother and friend), capacity to cope/resilience, future planning, resourcefulness, history of help-seeking, access to healthcare/mental health resources and limited/restricted access to lethal means (firearms, knives), no prior suicide attempts Overall, the patient is at chronically high risk of harm to self/others due to non-modifiable risk factors; she is not at additional acutely elevated risk of harm to self/others above this baseline given her subjective improvement in mood with evaluation and appropriate future planning with tolerance of Trileptal with Zofran. While Mikki Batista presents a chronically elevated risk of harm to self and/or others due to non-modifiable risk factors, these factors are unfortunately not modifiable by inpatient admission. Admission further presents an unfavorable risk/benefit profile with poor tolerance of ED BHP environment, history of traumatization by prior psychiatric hospitalization, and lack of readily available beds thus requiring boarding prior to admission. Recommendations: - At this time, patient does not meet criteria for psychiatric admission and may be discharged to maternal grandmother's home - Patient has own supply of Zofran for nausea/vomiting prophylaxis when taking Trileptal - Patient aware to contact outpatient psychiatrist Dr. Ortiz regarding medication adjustments even prior to scheduled appointments--LVM for Dr. 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 Arteriovenous disorder ([facility]) 02/22/2011 Resolved Problems Problem Noted Date Diagnosed Date Resolved Date History of surgical procedure 05/11/2016 06/14/2022 Immunizations Name Administration Dates Next Due DTaP 06/20/2005, 1,2000,2000, 2000 HPV9 02/07/2023,06/26/2018,04/25/2018 Hep B / HiB 01/26/2001,2000,2000 IPV 06/20/2005,2000,2000 ,2000 Influenza, Unspecified 08/06/2023(Deferr ed: Patient Refused),08/06/2022(Deferred: Patient Refused),08/06/2022(Deferred: Patient Refused),08/06/2021(Deferred: Patient Refused) MMR 06/20/2005,01/26/2001 Meningococcal MCV4P (Menactra) 07/07/2017 Pneumococcal Conjugate 7-Valent 04/27/2001,01/26 Tdap 02/07/2023,08/03/2012 Surgical History Surgery Date Site/Laterality Comments CRANIOTOMY CEREBRAL ANGIOGRAM Right Medical History Medical History Date Comments Anxiety Depression PTSD (post-traumatic stress disorder) Anemia AVM (arteriovenous malformation) Wrist fracture 02/24/2024 right Varicella Shingles Family History Medical History Relation Name Comments Back Pain Father No Known Problems Mother Breast cancer Mother's Sister Ovarian cancer Paternal Grandmother ADD / ADHD Sister 1 Anxiety disorder Sister 1 Depression Sister 1 ADD / ADHD Sister 2 Anxiety disorder Sister 2 Depression Sister 2 Anxiety disorder Sister 3 Depression Sister 3 PTSD Sister 3 Anxiety disorder Sister 4 Depression Sister 4 PTSD Sister 4 Epilepsy Neg Hx Uterine cancer Neg Hx Relation Name Status Comments Father Alive Mother Alive Mother's Sister Paternal Grandmother Sister 1 Alive Sister 2 Alive Sister 3 Alive Sister 4 Alive Social History Tobacco Use Types Packs/Day Years Used Date Smoking Tobacco: Never Smokeless Tobacco: Never Tobacco Cessation:Counseling Given: Not Answered Alcohol Use Standard Drinks/Week Comments Never 0 (1 standard drink = 0.6 oz pur e alcohol) AUDIT-C Answer Date Recorded Q1: How often do you have a drink containing alc ohol? Monthly or less 03/11/2024 Q2: How many drinks containi ng alcohol do you have on a typical day when you are drinking? 1 or 2 03/11/2024 Q3: How often do you have si x or more drinks on one occasion? Never 03/11/2024 PHQ-2 Answer Date Recorded PHQ-2 Total Score (If total score is 3 or more points, staff should administer the PHQ-9) 3 07/01/2022 Personal Safety Answer Date Recorded Have you ever been in or are you currently in a harmful physical or emotional relationship or is someone making you feel afraid or unsafe? 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 Not on file Not on file Obstetrics History Para Term AB IAB SAB Ectopic Multiple Livin g Live Births 0 0 0 0 0 0 0 0 0 0 0 Last Filed Vital Signs Vital Sign Reading Time Taken Comments Blood Pressure 100/60 05/08/2024 4:20 PM CDT Pulse 92 03/11/2024 2:51 PM CDT Temperature 36.3 C (97.4 F) 03/11/2024 2:51 PM CDT Respiratory Rate 12 03/11/2024 2:51 PM CDT Oxygen Saturation 99% 03/11/2024 2:51 PM CDT Inhaled Oxygen Concentration - - Weight 52.6 kg (116 lb) 05/08/2024 4:20 PM CDT Height 165.1 cm (5' 5 ) 05/08/2024 4:20 PM CDT Body Mass Index 19.3 05/08/2024 4:20 PM CDT Plan of Treatment Health Maintenance Due Date Last Done Comments Depression Screening 07/01/2023 07/01/2022, 07/01/2022, 02/16/2021, Additional history exists Chlamydia and Gonorrhea (GC/ CT) Screening 09/02/2023 09/02/2022 Cervical Cancer Screening 02/08/2024 02/07/2023 Regular Well Visit/Exam 18-64 02/08/2024 02/07/2023 Influenza Vaccine (#1) 2024 DTaP/Tdap/Td Vaccine (8 - Td or Tdap) 02/07/2033 02/07/2023, 08/03/2012, 06/20/2005, Additional history exists Hepatitis B Screening Completed 01/26/2001 , 2000, 2000 Pneumococcal vaccine <65 Completed 04/27/2001, 01/05 Hepatitis C Screening Completed 09/02/2022 HPV Vaccines Completed 02/07/2023, 06/07, 04/25/2018 Procedures Procedure Name Priority Date/Time Associated Diagnosis Comments PAP WITH REFLEX TO HIGH RISK HPV Routine 02/07/2023 9:08 AM CDT Pap smear, as part of routine gynecological examination N. GONORRHOEAE/C. TRACHOMATIS AMPLIFICATION STAT 09/02/2022 6:22 PM CDT HEPATITIS C ANTIBODY STAT 09/02/2022 6:19 PM CDT from Last 3 Months or Most Recently Relevant to Health Maintenance Results * Pap with reflex to High Risk HPV (02/07/2023 9:08 AM CDT) CLINICAL INFORMATION: Sandy Stone Comment:[facility] LMP Sandy Stone Comment:01/11/23 Previous Pap Sandy Stone Comment:NONE GIVEN Prev. Bx Sandy Stone Comment:NONE GIVEN SOURCE: Sandy Stone Comment:Cervix, Endocervix Pap, specimen adequacy Sandy Stone Comment: Satisfactory for evaluation. Endocervical/transformation zone component present. HPV interp Sandy Stone Comment:Negative for intraep ithelial lesion or malignancy. Infection: Sandy Stone Comment: Shift in vaginal celestino suggestive of bacterial vaginosis. COMMENTS Sandy Stone Comment: This Pap test has been evaluated with computer assisted technology. Honing Machine Operator Production Hemant Ronquillo Comment: LORETTA CT(ASCP) CT Screening location: Count includes the [facility] Administration [place] [address] Review mat making machine tender Sandy Stone Comment: OSMIN CT(ASCP) CT screening location: [place] [address] Administration [place] [address] Comment Sandy Stone Comment: EXPLANATORY NOTE: The Pap is a screening test for cervical cancer. It is not a diagnostic test and is subject to false negative and false positive results. It is most reliable when a satisfactory sample, regularly obtained, is submitted with relevant clinical findings and history, and when the Pap result is evaluated along with historic and current clinical information. Vaginal 02/07/2023 9:08 AM CDT 02/08/2023 2:24 AM CDT Sabrina MCCARTHY LAB CYTOLOGY ORDERABLES F inal Result SANDY Wilkerson Generous DealsBen Stone [address] [address] [place] [id number] * N. gonorrhoeae/C. trachomatis Amplification Urine (09/02/2022 6:22 PM CDT) C. trachomatis Not Detected Not Detected DIEUDONNE DONG Comment:Testing performed by : [facility], [address] [place] [address]., [id number] N. gonorrhoeae Not Detected Not Detected DIEUDONNE DONG Comment: Interpretive Data Testing performed by the [facility]. This assay detects Chlamydia trachomatis and Neisseria gonorrhoeae by nucleic acid amplification testing (NAAT). This test is approved by the [place] Food and Drug Administration and the performance characteristics have been verified by the laboratory. The performance characteristics of this test have not been evaluated in individuals less than 14 years of age. Current Interpretive Data was last revised on 2019. Testing performed by: [facility], [address] [place] [address]., [id number] Urine (None) 09/02/2022 6:22 PM CDT 09/02/2022 6:38 PM CDT [facility] LAB MICROBIOLOGY - GENERAL ORDER MINERVA Final Result Performing Organization Address [facility] de Phone Number [facility] [address] [facility] [employer] [place] [address] * Hepatitis C antibody (09/02/2022 6:19 PM CDT) Hep C Ab Nonreactive Nonreactive DIEUDONNE DONG Comment: Interpretive Data Nonreactive: Antibodies to HCV not detected. Does NOT exclude the possibility of recent exposure to HCV. Equivocal: Equivocal for HCV antibodies. Supplemental molecular testing will be automatically performed to determine infection status in accordance with current CDC screening recommendations. Reactive: Positive for HCV antibodies. This may represent current or past HCV infection. Supplemental molecular testing will be automatically performed to determine current infection status in accordance with current CDC screening recommendations. Interpretive data was last revised on 2020. Blood 09/02/2022 6:19 PM CDT 09/02/2022 8:23 PM CDT [facility] LAB MICROBIOLOGY - GENERAL ORDER MINERVA Final Result Performing Organization Address City/[facility] de Phone Number [facility] [address] [facility] [address] [place] [address] from Last 3 Months or Most Recently Relevant to Health Maintenance Insurance [employer] [place] [employer] [place] [employer] [place] [employer] OPEN ACCESS Advance Directives For more information, please contact: [phone] Documents on File Type Date Recorded Patient Injection Maintenance Technician Expl anation ADVANCE DIRECTIVE 11/30/2020 2:14 PM [email or web address] .[email or web address] * Full Code (Latest Code Status on File) Date Activated Date Inactivated Comments 06/25/2022 8:58 PM 06/27/2022 9:39 PM * Full Code Date Activated Date Inactivated Comments 02/23/2021 7:56 AM 02/26/2021 9:28 PM Care Teams Hogshead Press Operator Relationship Specialty Start Date End Date Sabrina Boyer PA [address] [place] [address] PCP - General Family Medicine 06/06/22
--- OUTSIDE RECORDS SUMMARY | 2024-12-12 10:57 | XMS_ITS | Referral Summary ---
Author Organization [facility] Main [facility] s Address [address] [place] [address] Care Team Providers Care Cow Washer Name Role Phone Sabrina Boyer Primary Care Provider [phone] Allergies Active Allergy Reactions Criticality Noted Date [...] to scheduled appointments--LVM for Dr. 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 Arteriovenous disorder ([facility]) 02/22/2011 Resolved Problems Problem Noted Date Diagnosed Date Resolved Date History of surgical procedure 05/11/2016 06/14/2022 Immunizations Name Administration Dates Next Due DTaP 06/20/2005, 1,2000,2000, 2000 HPV9 02/07/2023,06/26/2018,04/25/2018 Hep B / HiB 01/26/2001,2000,2000 IPV 06/20/2005,2000,2000 ,2000 Influenza, Unspecified 08/06/2023(Deferr ed: Patient Refused),08/06/2022(Deferred: Patient Refused),08/06/2022(Deferred: Patient Refused),08/06/2021(Deferred: Patient Refused) MMR 06/20/2005,01/26/2001 Meningococcal MCV4P (Menactra) 07/07/2017 Pneumococcal Conjugate 7-Valent 04/27/2001,01/26 Tdap 02/07/2023,08/03/2012 Social History Tobacco Use Types Packs/Day Years [...] on file Legal Sex 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 Bx Rhea Stone Comment:NONE GIVEN SOURCE: Rhea Stone Comment:Cervix, Endocervix Pap, specimen adequacy Rhea Stone Comment: Satisfactory for evaluation. Endocervical/transformation zone component present. HPV interp Rhea Stone Comment:Negative for intraep ithelial lesion or malignancy. Infection: Rhea Stone Comment: Shift in vaginal celestino suggestive of bacterial vaginosis. COMMENTS Rhea Stone Comment: This Pap test has been evaluated with computer assisted technology. Training Generalist Hemant Ronquillo Comment: LIDYA BURGOS(ASCP) CT Screening location: [facility] [address] [place] [address] Review dump motor operator Rhea Stone Comment: LIDYA SOLORIO(ASCP) CT screening location: [place] [address] Administration ROLAND Castano [facility] Comment Rhea Stone Comment: EXPLANATORY NOTE: The Pap is [...] MCCARTHY LAB CYTOLOGY ORDERABLES F inal Result [facility] [address] [place] [address] * N. gonorrhoeae/C. trachomatis Amplification Urine (09/02/2022 6:22 PM CDT) C. trachomatis Not Detected Not Detected DIEUDONNE Comment:Testing performed by : [facility], [address] [place] [address]., [address] N. gonorrhoeae Not Detected Not Detected DIEUDONNE DONG Comment: Interpretive Data Testing performed by the [facility]. This assay detects Chlamydia trachomatis [...] on 2019. Testing performed by: [facility], [address] [place] [address]., [address] Urine (None) 09/02/2022 6:22 PM CDT 09/02/2022 6:38 PM CDT Liliane Locke NP LAB MICROBIOLOGY - GENERAL ORDER MINERVA Final Result Performing Organization Address City/[facility]/ZIP Co de Phone Number [facility] [address] [facility] Department of Laboratories [place], [place] [id number] * Hepatitis C antibody (09/02/2022 6:19 PM [...] 6:19 PM CDT 09/02/2022 8:23 PM CDT Liliane Locke NP LAB MICROBIOLOGY - GENERAL ORDER MINERVA Final Result DIEUDONNE MH [address] [facility] Department [place] [address] from Last 3 Months or Most Recently Relevant to Health Maintenance Insurance [employer] [place] [address] [employer] [place] [employer] [place] [employer] ACCESS Advance Directives For more information, please contact: [phone] Documents on File Type Date Recorded Patient Executive Creative Director Expl anation ADVANCE DIRECTIVE 11/30/2020 2:14 PM [email or web address] .[email or web address] * Full Code (Latest Code Status on File) Date Activated Date Inactivated Comments 06/25/2022 8:58 PM 06/27/2022 9:39 PM * Full Code Date Activated Date Inactivated Comments 02/23/2021 7:56 AM 02/26/2021 9:28 PM Care Teams Cow Washer Relationship Specialty Start Date End Date Sabrina Boyer PA [address] [place] [address] PCP - General Family Medicine 06/06/22
--- NOTE | 2024-12-12 11:55 | PC.NURSE ---
Pt was laying in chair in waiting room, had approximately 30 second seizure. Pt did not fall, pt's visitor able to assist holding pt in place during seizure until RN notified. Quickly became reoriented. Pt here for ankle injury, reports hx of epilepsy, pt reports she took her normal medications but that she vomited right after and believes they came back up. Pt unable to confirm name/dose of her epilepsy medication, states it was just recently switched. freezing room worker made aware. Pt A&Ox4. Working on room placement.
--- NOTE | 2024-12-12 12:39 | ED.LOWEXIN ---
HPI - Extremity Injury (Lower) General Chief Complaint: Extremity Injury, Lower <ALEJO Garcia Last Filed: 12/12/24 13:04> Stated Complaint: I think my ankle is broken <ALEJO Garcia Last Filed: 12/12/24 13:04> Time Seen by Provider: 12/12/24 12:39 <ALEJO Garcia Last Filed: 12/12/24 13:04> Focused HPI: Patient is a 24 y/o female, with PMH of seizure disorder s/p brain surgery for aneurysm in 2009, who presents to the ED with c/o R ankle pain. Patient reports her cat walked in between her legs while walking up the steps last night causing her to fall. Sustained injury to R ankle, has since developed pain and swelling. Unable to bear weight. No numbness. Does believe she may have hit her head in the fall. Denies LOC. Denies any other areas of pain. Patient with known seizure disorder. She states she vomited up her seizure medication this morning. She did have a seizure in the ED waiting room which was witnessed by ED staff. Resolved on its own. Patient states this was typical of her normal seizures. Unknown what medication she is supposed to be taking. GENERAL: Well-appearing, well-nourished, and in no acute distress. HEAD: Normocephalic, atraumatic. CHEST: Clear to auscultation. ?No respiratory distress. HEART: Regular rate and rhythm.? MSK: Diffuse swelling and tenderness throughout R lateral ankle/ lateral malleoli/lateral proximal fibular region. Ecchymosis present along lateral edge of foot. Some bruising extending along lateral lower leg. Sensation intact. Pedal pulses intact. NEURO: ?Alert and oriented x3. No focal deficits. Patient screened in triage and initial orders placed.? ?Additional care and disposition to be based upon?diagnostic testing and treatment. <ALEJO Garcia Last Filed: 12/12/24 13:04> Source: patient <ALEJO Garcia Last Filed: 12/12/24 13:04> Mode of arrival: ambulatory <ALEJO Garcia Last Filed: 12/12/24 13:04> Limitations: no limitations <Annie Plascencia PA-C - Last Filed: 12/12/24 13:04> History of Present Illness HPI Narrative: agree with the HPI as described above. <Sg Saleh MD - Last Filed: 12/13/24 00:41> Related Data Home Medications: Home Medications ?Medication ?Instructions ?Recorded ?Confirmed ?Last Taken ?Type clonidine HCl 0.1 mg tablet 0.1 mg PO BID 03/28/24 03/28/24 Unknown History escitalopram oxalate 5 mg tablet 5 mg PO DAILY 03/28/24 03/28/24 Unknown History lamotrigine 200 mg tablet 200 mg PO BID 03/28/24 03/28/24 Unknown History quetiapine 200 mg tablet 200 mg PO HS 03/28/24 03/28/24 Unknown History <Annie Plascencia PA-C - Last Filed: 12/12/24 13:04> Allergies/Adverse Reactions: Allergies Allergy/AdvReac Type Severity Reaction Status Date / Time Sulfa (Sulfonamide AdvReac Unknown Verified 12/12/24 14:44 Antibiotics) vancomycin AdvReac Other Verified 12/12/24 14:44 keppra AdvReac Itching Uncoded 12/12/24 14:44 <Annie Plascencia PA-C - Last Filed: 12/12/24 13:04> PMFSH Past Medical History Medical History: Medical History Seizure disorder 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 HEAD: Normocephalic, atraumatic. CHEST: Clear to auscultation. ?No respiratory distress. HEART: Regular rate and rhythm.? MSK: Diffuse swelling and tenderness throughout R lateral ankle/ lateral malleoli/lateral proximal fibular region. Ecchymosis present along lateral edge of foot. Some bruising extending along lateral lower leg. Sensation intact. Pedal pulses intact. NEURO: ?Alert and oriented x3. No focal deficits. <Sg Saleh MD - Last Filed: 12/13/24 00:41> Course Vital Signs Vital signs: Vital Signs Temperature 36.3 C L 12/12/24 10:43 Pulse Rate 122 H 12/12/24 10:43 Respiratory Rate 20 12/12/24 10:43 Blood Pressure 137/84 12/12/24 10:43 Pulse Oximetry 97 12/12/24 10:43 Oxygen Delivery Room Air 12/12/24 10:43 Temperature 36.3 C L 12/12/24 10:43 Pulse Rate 130 H 12/12/24 19:26 Respiratory Rate 18 12/12/24 19:26 Blood Pressure 147/54 H 12/12/24 19:26 Pulse Oximetry 98 12/12/24 19:26 Oxygen Delivery Room Air 12/12/24 10:43 <Annie Plascencia PA-C - Last Filed: 12/12/24 13:04> Vital Signs Temperature 36.3 C L 12/12/24 10:43 Pulse Rate 122 H 12/12/24 10:43 Respiratory Rate 20 12/12/24 10:43 Blood Pressure 137/84 12/12/24 10:43 Pulse Oximetry 97 12/12/24 10:43 Oxygen Delivery Room Air 12/12/24 10:43 Temperature 36.3 C L 12/12/24 10:43 Pulse Rate 130 H 12/12/24 19:26 Respiratory Rate 18 12/12/24 19:26 Blood Pressure 147/54 H 12/12/24 19:26 Pulse Oximetry 98 12/12/24 19:26 Oxygen Delivery Room Air 12/12/24 10:43 <Sg Saleh MD - Last Filed: 12/13/24 00:41> Procedures Orthopedic Splinting/Casting Injury #1: Splinting/Casting Date: 12/12/24 <Sg Saleh MD - Last Filed: 12/13/24 00:41> Splinting/Casting Time: 16:36 <Sg Saleh MD - Last Filed: 12/13/24 00:41> Side: right <Sg Saleh MD - Last Filed: 12/13/24 00:41> Lower Extremity Injury Location: ankle <Sg Saleh MD - Last Filed: 12/13/24 00:41> Lower Extremity Immobilizer: posterior splint <Sg Saleh MD - Last Filed: 12/13/24 00:41> Splint: customized in ED <Sg Saleh MD - Last Filed: 12/13/24 00:41> Pre-Procedure Neuro Vascular Exam: normal <Sg Saleh MD - Last Filed: 12/13/24 00:41> Post-Procedure Neuro Vascular Exam: normal <Sg Saleh MD - Last Filed: 12/13/24 00:41> Other Orthopedic Equipment: crutches <Sg Saleh MD - Last Filed: 12/13/24 00:41> MDM - Extremity Injury (Lower) MDM Narrative Medical decision making narrative: MSE by CAROL in triage. <Annie Plascencia PA-C - Last Filed: 12/12/24 13:04> MSE by CAROL in triage.24-year-old female presenting to the emergency department after tripping over her cat at home with sustained injury to her right ankle. She has a history of generalized seizure disorder likely secondary to a previous AVM requiring operation and ventriculostomy drain which has since been removed. She takes seizure medications but recently had titration is in changes to her medication dosages and unsure what she was supposed to be taking this morning. Was not able to take her morning medication as she was nauseous vomiting and tripped over her cat and fell onto her ankle. Did not hit her head or lose consciousness, not any blood thinner medications. Previously been on lamotrigine for seizure but thinks that she might have changes recently. She has evidence of trauma to her right ankle with some pain and tenderness as well as ecchymoses but no plantar ecchymosis or significant swelling. range of motion is limited by pain but she has strong symmetric pulses and warm extremities. No evidence of head trauma. While waiting to be brought back to a room patient had a witnessed generalized seizure that was short-lived in the waiting room. She is presently back to her normal mentation, not postictal, answering all questions appropriately. States she feels nauseous and has vomited several times. Denies any abdominal pain or cramping. IV was established, blood work obtain an x-ray images were obtained as well as a CT of the head. She was given Zofran and a dose of her lamotrigine ordered. seizure precautions ordered. blood work shows no leukocytosis or anemia. Chemistry panel shows normal electrolytes but does have an anion gap elevated acidosis likely secondary to a combination of her recent seizure activity and nausea and vomiting with ketosis from this. she has an elevated bilirubin of 1.6 however this is chronic and consistent with her previous elevations previously. Normal LFTs otherwise. Negative beta hCG. Patient denies any urinary complaints. Head CT shows no acute intracranial process, chronic encephalomalacia and old ventriculostomy site noted. Foot ankle and tib-fib x-ray show a Castro type B fracture of the right distal fibula without any significant signs of instability such as displacement or medial malleolar involvement. There is lateral soft tissue swelling. Patient was re-evaluated frequently and provide pain control medications, pain is under control, patient did still vomited several times requiring additional Zofran. patient did receive a fluid bolus and is tolerating p.o. intake at this time. She is still slightly tachycardic but she states that she just feels incredibly anxious and wishes to go home. I went over her laboratory studies and her nauseousness and vomiting that seems to respond to Zofran as well as her tachycardia. We went over plan of care at this point including potential further imaging studies such as scan of her belly to make sure there is nothing going on to cause her nausea vomiting and even admit for symptom control. could be related to a component of cannabis hyperemesis as she has presented similarly in the past according to herself and smoked this AM prior to onset of nausea. Patient would prefer to go home at this time instead of further workup for her symptoms and to take nausea controlling medications and pain meds at home. patient was observed here for numerous hours without any further breakthrough or recurrent seizure-like activity. Patient was given very strict return precautions including intractable vomiting, inability to tolerate p.o. intake especially her seizure medications, intractable pain or any other concerns that she should proceed back to the emergency department at that time. Patient and family verbalized understanding of these instructions and were discharged after shared decision-making. <Sg Saleh MD - Last Filed: 12/13/24 00:41> Medical Records Attestation: I reviewed the patient's medical records. <Sg Saleh MD - Last Filed: 12/13/24 00:41> Lab Data Attestation: I reviewed the patient's lab results. <Sg Saleh MD - Last Filed: 12/13/24 00:41> Result diagrams: 12/12/24 18:13 12/12/24 18:13 <Annie Plascencia PA-C - Last Filed: 12/12/24 13:04> Labs: Lab Results 12/12/24 Range/Units 18:13 WBC 9.4 (4.5-10.0) K/mm3 RBC 4.46 (4.2-5.4) M/mm3 Hgb 14.3 (12.0-15.0) g/dL Hct 41.9 (37.0-47.0) % MCV 93.9 (80-100) fl MCH 32.1 (26-34) pg MCHC 34.1 (32-36) g/dl RDW 14.3 (11.5-14.5) % Plt Count 337 (150-375) k/mm3 MPV 9.2 (7.4-10.4) fl Immature Gran % (Auto) 0.1 (0-0.5) % Neut % (Auto) 81.4 H (45.5-73.1) % Lymph % (Auto) 12.9 L (18.3-44.2) % Morrow % (Auto) 4.9 (2.6-8.5) % Eos % (Auto) 0.1 (0-4.4) % Baso % (Auto) 0.6 (0.2-1.2) % Lymph # (Auto) 1.22 (0.9-3.2) K/mm3 Morrow # (Auto) 0.5 (0.1-0.6) K/mm3 Eos # (Auto) 0.0 (0-0.3) K/mm3 Baso # (Auto) 0.1 (0.0-0.1) K/mm3 Abs Immat Gran (auto) 0.01 (0.00-0.031) K/mm3 Absolute Neuts (auto) 7.7 H (1.3-6.7) K/mm3 Absolute Nucleated RBC 0.000 (0.0-0.012) K/mm3 Nucleated RBC % 0.0 (0.0-0.2) % Sodium 142 (137-145) mmol/L Potassium 3.7 (3.4-5.0) mmol/L Chloride 101 (98-107) mmol/L Carbon Dioxide 13 L (22-30) mmol/L Anion Gap 28 H (4-12) mmol/L BUN 12 (7-17) mg/dL Creatinine 0.85 (0.7-1.0) mg/dL Estim Creat Clear Calc 80 ml/min Estimated GFR > 60 (59 - ) Glucose 88 (65-110) mg/dL Calcium 9.2 (8.4-10.2) mg/dL Magnesium 1.5 L (1.6-2.3) mg/dL Total Bilirubin 1.6 H (0.2-1.3) mg/dL AST 34 (14-36) U/L ALT 33 (6-35) U/L Alkaline Phosphatase 81 (38-126) U/L Total Protein 8.0 (6.3-8.2) g/dL Albumin 5.1 (3.5-5.1) g/dL Serum HCG, Qual Negative Influenza A (RT-PCR) Negative (Negative) Influenza B (RT-PCR) Negative (Negative) RSV (RT-PCR) Negative (Negative) SARS-CoV-2 RNA (RT-PCR) Negative (Negative) <Annie Plascencia PA-C - Last Filed: 12/12/24 13:04> Lab Results 12/12/24 Range/Units 18:13 WBC 9.4 (4.5-10.0) K/mm3 RBC 4.46 (4.2-5.4) M/mm3 Hgb 14.3 (12.0-15.0) g/dL Hct 41.9 (37.0-47.0) % MCV 93.9 (80-100) fl MCH 32.1 (26-34) pg MCHC 34.1 (32-36) g/dl RDW 14.3 (11.5-14.5) % Plt Count 337 (150-375) k/mm3 MPV 9.2 (7.4-10.4) fl Immature Gran % (Auto) 0.1 (0-0.5) % Neut % (Auto) 81.4 H (45.5-73.1) % Lymph % (Auto) 12.9 L (18.3-44.2) % Morrow % (Auto) 4.9 (2.6-8.5) % Eos % (Auto) 0.1 (0-4.4) % Baso % (Auto) 0.6 (0.2-1.2) % Lymph # (Auto) 1.22 (0.9-3.2) K/mm3 Morrow # (Auto) 0.5 (0.1-0.6) K/mm3 Eos # (Auto) 0.0 (0-0.3) K/mm3 Baso # (Auto) 0.1 (0.0-0.1) K/mm3 Abs Immat Gran (auto) 0.01 (0.00-0.031) K/mm3 Absolute Neuts (auto) 7.7 H (1.3-6.7) K/mm3 Absolute Nucleated RBC 0.000 (0.0-0.012) K/mm3 Nucleated RBC % 0.0 (0.0-0.2) % Sodium 142 (137-145) mmol/L Potassium 3.7 (3.4-5.0) mmol/L Chloride 101 (98-107) mmol/L Carbon Dioxide 13 L (22-30) mmol/L Anion Gap 28 H (4-12) mmol/L BUN 12 (7-17) mg/dL Creatinine 0.85 (0.7-1.0) mg/dL Estim Creat Clear Calc 80 ml/min Estimated GFR > 60 (59 - ) Glucose 88 (65-110) mg/dL Calcium 9.2 (8.4-10.2) mg/dL Magnesium 1.5 L (1.6-2.3) mg/dL Total Bilirubin 1.6 H (0.2-1.3) mg/dL AST 34 (14-36) U/L ALT 33 (6-35) U/L Alkaline Phosphatase 81 (38-126) U/L Total Protein 8.0 (6.3-8.2) g/dL Albumin 5.1 (3.5-5.1) g/dL Serum HCG, Qual Negative Influenza A (RT-PCR) Negative (Negative) Influenza B (RT-PCR) Negative (Negative) RSV (RT-PCR) Negative (Negative) SARS-CoV-2 RNA (RT-PCR) Negative (Negative) <Sg Saleh MD - Last Filed: 12/13/24 00:41> Imaging Data Attestation: I personally reviewed and interpreted this imaging study as follows: <Sg Saleh MD - Last Filed: 12/13/24 00:41> My impression: Impressions Head CT 12/12/24 13:03 IMPRESSION: 1. Chronic encephalomalacia in the left temporal lobe. 2. 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 Ankle X-Ray 12/12/24 13:13 Impression: Acute distal fibular fracture, as above. Lateral soft tissue swelling. Foot X-Ray 12/12/24 13:24 IMPRESSION: 1. Minimally displaced Castro type B fracture of the right lateral malleolus. Tibia/Fibula X-Ray 12/12/24 13:24 IMPRESSION: 1. Minimally displaced Castro type B fracture of the right lateral malleolus. <Sg Saleh MD - Last Filed: 12/13/24 00:41> Discharge Plan Discharge Clinical Impression: Fracture of distal end of fibula, Breakthrough seizure, Fall, Nausea & vomiting <ALEJO Garcia Last Filed: 12/12/24 13:04> Patient Disposition: Home, Self-Care <ALEJO Garcia Last Filed: 12/12/24 13:04> Condition: Stable <ALEJO Garcia Last Filed: 12/12/24 13:04> Instructions: Antibiotic Form <Annie Plascencia PA-C - Last Filed: 12/12/24 13:04> Additional Instructions: we will send you home with nausea controlling medications and pain control medications. Follow-up with the orthopedic surgeon that we have provided for you. If you have any recurrence of your symptoms such as intractable nausea, inability to take her oral medications, pain is not terrible, recurrent severe seizures despite her normal home medications please return to the emergency department at that time. Follow-up with regular doctor otherwise. <ALEJO Garcia Last Filed: 12/12/24 13:04> Patient Language: Turkmen <ALEJO Garcia Last Filed: 12/12/24 13:04> Prescriptions: New metoclopramide HCl [Reglan] 5 mg tablet 5 mg PO Q8H PRN (Reason: nausea and vomiting) Qty: 14 0RF acetaminophen [Tylenol Extra Strength] 500 mg tablet 1,000 mg PO TID PRN (Reason: pain) Qty: 30 0RF oxycodone 5 mg tablet 5 mg PO Q8H PRN (Reason: pain) Qty: 10 0RF ibuprofen 600 mg tablet 600 mg PO TID PRN (Reason: pain) Qty: 20 0RF No Action doxycycline hyclate 100 mg capsule 100 mg PO BID Qty: 28 0RF clonidine HCl 0.1 mg tablet 0.1 mg PO BID lamotrigine 200 mg tablet 200 mg PO BID quetiapine 200 mg tablet 200 mg PO HS escitalopram oxalate 5 mg tablet 5 mg PO DAILY ondansetron 4 mg tablet,disintegrating 4 mg PO Q8H PRN (Reason: nausea and vomiting) Qty: 7 0RF ondansetron 4 mg tablet,disintegrating 4 mg PO Q8H Qty: 7 0RF acetaminophen 500 mg capsule 1,000 mg PO Q6H PRN (Reason: pain) Qty: 30 0RF ibuprofen 600 mg tablet 600 mg PO TID PRN (Reason: pain) Qty: 30 0RF <ALEJO Garcia Last Filed: 12/12/24 13:04> Follow-up/Referrals: Rubio Man MD [Physician] - 1 Week ( Castro type B fracture, right-sided) Kathya Boyer, BLESSING [Primary Care Provider] - <Annie Plascencia PA-C - Last Filed: 12/12/24 13:04> Time of Disposition: 19:44 <Annie Plascencia PA-C - Last Filed: 12/12/24 13:04> 19:44 <Sg Saleh MD - Last Filed: 12/13/24 00:41>
[2024-12-12] MEDS: KETOROLAC (*BKC) 60 MG/2 ML VIAL IM (13:30)
[2024-12-12] MEDS: ONDANSETRON HCL ODT 4 MG TABLET PO (13:30)
[2024-12-12 14:01] VITALS: BP 125/73; PULSE 114; RESP 26; O2SAT 99
[2024-12-12] MEDS: oxyCODONE HCL (*CRX) 5 MG TAB IR PO (14:44)
[2024-12-12 18:10] VITALS: BP 140/97; PULSE 109; RESP 16; O2SAT 97
[2024-12-12] MEDS: LACTATED RINGERS 1,000 ML 999 ML IV CONT (18:11)
[2024-12-12] MEDS: ONDANSETRON INJ 4 MG/2 ML VIAL IV PUSH ×2 (18:11→19:24)
[2024-12-12] MEDS: HYDROmorphone HCL INJ (*CRX) 1 MG/ML SYR 0.5 MG IV PUSH (18:12)
[2024-12-12 18:23] LABS: Basophils Absolute Auto 0.1 K/mm3 (0.0-0.1); Basophils Percent Auto 0.6 % (0.2-1.2); Eosinophils Percent Auto 0.1 % (0-4.4); Hematocrit 41.9 % (37.0-47.0); Hemoglobin 14.3 g/dL (12.0-15.0); Immature Granulocyte Absolute 0.01 K/mm3 (0.00-0.031); Immature Granulocyte Percent A 0.1 % (0-0.5); Lymphocytes Absolute Auto 1.22 K/mm3 (0.9-3.2); Lymphocytes Percent Auto 12.9 % (18.3-44.2); Mean Corpuscular HGB Conc 34.1 g/dl (32-36); Mean Corpuscular Hemoglobin 32.1 pg (26-34); Mean Corpuscular Volume 93.9 fl (80-100); Mean Platelet Volume 9.2 fl (7.4-10.4); Monocytes Absolute Auto 0.5 K/mm3 (0.1-0.6); Monocytes Percent Auto 4.9 % (2.6-8.5); Neutrophils Absolute Auto 7.7 K/mm3 (1.3-6.7); Neutrophils Percent Auto 81.4 % (45.5-73.1); Platelet Count Result 337 k/mm3 (150-375); Red Blood Count 4.46 M/mm3 (4.2-5.4); Red Cell Distribution Width 14.3 % (11.5-14.5); White Blood Count 9.4 K/mm3 (4.5-10.0)
[2024-12-12 18:34] LABS: Alanine Aminotransferase 33 U/L (6-35); Albumin Level 5.1 g/dL (3.5-5.1); Alkaline Phosphatase 81 U/L (38-126); Anion Gap 28 mmol/L (4-12); Aspartate Amino Transferase 34 U/L (14-36); Bilirubin,Total 1.6 mg/dL (0.2-1.3); Blood Urea Nitrogen 12 mg/dL (7-17); Calcium 9.2 mg/dL (8.4-10.2); Carbon Dioxide 13 mmol/L (22-30); Chloride 101 mmol/L (98-107); Estimated CRCL calculation 80 ml/min; Estimated Glomerular Filt Rate > 60; Glucose 88 mg/dL (65-110); Magnesium 1.5 mg/dL (1.6-2.3); Potassium 3.7 mmol/L (3.4-5.0); Sodium 142 mmol/L (137-145)
[2024-12-12 18:56] LABS: SPREG INTERNAL CONTROL Positive; Serum Qual hCG Negative
[2024-12-12 18:59] LABS: Influenza A QL RT-PCR Negative (Negative); Influenza B QL RT-PCR Negative (Negative); RSV RNA, RT-PCR Negative (Negative); SARS-CoV-2 RNA PCR Negative (Negative)
[2024-12-12 19:26] VITALS: BP 147/54; PULSE 130; RESP 18; O2SAT 98
== END 2024-12-12 20:24 | disposition home or self-care (01) ==
PROVIDERS: Emergency Provider Student in an Organized Health Care Education/Training Program
DX: S82.61XA Displaced fracture of lateral malleolus of right fibula, initial encounter for closed fracture (principal); R11.2 Nausea with vomiting, unspecified; G40.909 Epilepsy, unspecified, not intractable, without status epilepticus; Z20.822 Contact with and (suspected) exposure to COVID-19; Z87.820 Personal history of traumatic brain injury; Z79.899 Other long term (current) drug therapy; W10.9XXA Fall (on) (from) unspecified stairs and steps, initial encounter
CPT/HCPCS: 29515; 36415; 70450; 73590; 73610; 73630; 80053; 83735; 84703; 85025; 87637; 96361; 96372; 96374; 96375; 96376; 99284; A9270; J1171; J1885; J2405; J7120

== ENCOUNTER 2025-01-22 08:05 | Inpatient (IN) | payer BC, SELFPAY ==
[2025-01-22] VITALS (22 sets, daily range): BP systolic 107–131; BP diastolic 59–91; PULSE 80–139; RESP 14–29; TEMP 36.6–37.9; O2SAT 94–100; BMI 24.8
--- NOTE | ~2025-01-22 | XR_ITS ---
XR chest 1V Ordering provider: Paige Quan MD History: 25 years Female with . multiple seizures, PT NON RESPONSIVE . Comparison: April 12, 2024 FINDINGS: MEDIASTINUM: The cardiac silhouette is not enlarged. LUNGS: No infiltrates, effusions or pneumothorax. OTHER: No free air under the diaphragm. IMPRESSION: No acute cardiopulmonary pathology. Reviewed, dictated and finalized at location A.
--- NOTE | ~2025-01-22 | CT_ITS ---
CT brain wo con Ordering provider: Paige Quan MD History: 25 years Female with . Hx epilepsy; mult sz; hx AVM . Comparison: None. Technique: CT of the head without contrast. Radiation reduction technique utilized. The dose-length p roduct was 1059.33 mGy-cm. FINDINGS: BRAIN PARENCHYMA AND CSF SPACES: Postoperative changes in the left temporal lobe with encephalomalaci a. No midline shift, mass effect or hemorrhage. The brain parenchyma and CSF spaces are otherwise no rmal. VISUALIZED PARANASAL SINUSES: Well aerated. MASTOIDS: Well aerated. BONES: Postoperative changes in the left frontal and left temporal bones otherwise, The bones appear intact. SOFT TISSUES: Visualized nasopharynx is normal. Superficial soft tissues are normal. IMPRESSION: No acute intracranial findings. Postoperative changes in the left temporal lobe with encephalomalacia. Reviewed, dictated and finalized at location A.
--- NOTE | 2025-01-22 08:11 | ED_ITS ---
HPI - Seizure General Chief Complaint: Seizure Stated Complaint: seizure Time Seen by Provider: 01/22/25 08:10 Source: patient ((later able to provide some history)), family (partner/friend arrives latr) and EMS Mode of arrival: EMS Limitations: altered mental status History of Present Illness HPI Narrative: EMS report: Patient reported that she has a history of epilepsy and multiple psych/behavioral health medicines by report. Her antiepileptic medications are unknown initially. Blood glucose was in the 120. Boyfriend seen did not know much history but did report that she had had seizures yesterday but refused to come to the emergency department. Had 5 seizures today without return to baseline. They attempted IV access but were unsuccessful and administered 10 mg IM Versed. It was reported that she was both postictal and combative/confused. Patient unable to provide history upon arrival. Related Data Home Medications ?Medication ?Instructions ?Recorded ?Confirmed ?Last Taken ?Type clonidine HCl 0.1 mg tablet 0.1 mg PO BID 03/28/24 01/22/25 Unknown History escitalopram oxalate 5 mg tablet 5 mg PO DAILY 03/28/24 01/22/25 Unknown History lamotrigine 200 mg tablet 200 mg PO BID 03/28/24 01/22/25 Unknown History quetiapine 200 mg tablet 200 mg PO HS 03/28/24 01/22/25 Unknown History Allergies Allergy/AdvReac Type Severity Reaction Status Date / Time levetiracetam (From [facility]) Allergy Itching,Wilfred Verified 01/22/25 08:17 sea Sulfa (Sulfonamide AdvReac Unknown Verified 01/07/25 07:41 Antibiotics) vancomycin AdvReac Other Verified 01/07/25 07:41 [facility] Past Medical History Medical History Seizure disorder 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 Elevated INR Suicidal overdose Liver failure, acute Family History Family History Sibling Depression Grandparent Cerebrovascular accident Social History Social History Social History: caffeine use Smoking status: Current some day smoker Tobacco type: e-cigarettes/vaping Alcohol intake: current Drinks per week: 30 Substance use: current Substance use type: marijuana Do You Feel Safe in your Home?: No Lack of Transportation: No Lack of Food: Never True Current Housing: I Have Housing Concerned About Future Housing: No Difficulty Paying Gas/Electric Bills: No Difficulty Paying for Meds: No Currently Unemployed: No Education: Associate Degree Difficulty w/ Childcare or Family Care: No Spiritual care concerns: No Exam 2 Narrative: GENERAL: well-nourished, and in no acute distress. HEAD: Normocephalic, atraumatic. EYES: Non injected, non icteric. PERRL. ENT: Nares clear, no rhinorrhea or epistaxis. Mild tongue trauma with lateral bites (R > L), bleeding well controlled. NECK: Supple. CHEST: No respiratory distress. Tachypneic but protecting airway. Coarse sounds but appears to be upper airway as patient has secretions. Not hypoxic. HEART: Tachycardic rate and rhythm. . ABDOMEN: Soft, nondistended. No tenderness to palpation. Not incontinent of urine. EXTREMITIES: No lower extremity edema. SKIN: Warm, dry, no rash. Patient exposed from waist up initially. No lacerations/abrasions. NEURO: Somnolent. Appears postictal versus medication side effect . Course Vital Signs Vital signs: Vital Signs Temperature 98.1 F 01/22/25 08:15 Pulse Rate 139 H 01/22/25 08:15 Respiratory Rate 24 H 01/22/25 08:15 Blood Pressure 126/73 01/22/25 08:15 Pulse Oximetry 96 01/22/25 08:15 Oxygen Delivery Room Air 01/22/25 08:15 Temperature 97.6 F 01/23/25 05:35 Pulse Rate 88 01/23/25 08:00 Respiratory Rate 16 01/23/25 05:35 Blood Pressure 108/83 01/23/25 05:35 Pulse Oximetry 97 01/23/25 05:35 Oxygen Delivery Room Air 01/23/25 09:15 Oxygen Flow Rate 2 01/22/25 08:32 MDM - Seizure MDM Narrative Medical decision making narrative: Patient with PMH epilepsy presents after report of multiple seizures yesterday but refusing to go to the hospital and by report 5 seizures today with no return to baseline in the interim. Initially, seizure meds unknown. EMS administered 10mg IM Versed. In the ED she if afebrile with VS notable for tachycardia and tachypnea. Per review of patient's medication list in the EMR she has/had been on clonidine 0.1 mg b.i.d., lamotrigine 200 mg b.i.d. and is also on escitalopram and quetiapine.. Ddx: Likely intractable seizure disorder, generalized seizure, epileptic seizure and other (; intracranial hemorrhage secondary to AVM; subtherapeutic antiepileptic drug), status epilepticus test negative. Patient has gurgling, snoring respirations initially. Nasopharyngeal airway inserted and patient suctioned. Called to bedside again approximately 8:25 a.m. Patient continues to end-expiratory grunting and coarse breath sounds although it appears that this is largely driven by upper airway secretions at this time. She is saturating appropriately on room air with nasal trumpet still in place. Reassessed when alert and more oriented. Leukocytosis. She has hyperglycemia large anion gap and acidosis. Denies having diabetes. HA1C appropriate. She states her seizures have been difficult to control although she does not know if she is taking her Lamictal. She also is unsure of the last time she saw her neurologist in [place]. After she states that over the last few days she has been feeling fine and denies any nausea, vomiting, fevers, chills, or cough. Her friend/partner at bedside states that she had called him yesterday because she was feeling unwell but described it as anxiousness and she does have anxiety at bedside. Mild transaminitis which has previously been demonstrated. Patient has an BASSEM as her creatinine is 1.27 today from 0.8 previously. When she is reassessed at approximately 12 she is alert and awake in attempting to answer questions although still seems a bit confused. Her heart rate had improved to 99 but is now elevated at 122. 2nd L IV fluids ordered. UDS positive for cocaine and cannabinoids. When asked if patient uses recreational drugs like cocaine she states I have an arterial venous malformation which doesn't explain the response. Asked again and patient seems confused. She later denies cocaine use. Urine looks markedly infected. Culture from October 2024 is reviewed which grew E coli that was generally sensitive to most antibiotics tested although indeterminate to amp/sulbactam and resistant to gentamicin and Bactrim. Ceftriaxone administered. Lactic acid had been elevated but resolves. Reassessed at 1:15 p.m. and remains tachycardic, back in the 120s. TSH and D- dimer ordered. Beta hydroxybutyrate only mildly elevated/abnormal. Notified the patient borderline febrile at 14 42. Acetaminophen ordered. YEARS Algorithm : No Clinical signs of DVT: No Hemoptysis: No PE is most likely diagnosis: No D-dimer >1000ng/mL: No Result: PE Excluded Recommend patient be admitted given multiple presentations for breakthrough seizures and status epilepticus today. Also a seemingly prolonged postictal period given her residual confusion. Discussed with patient the recommendation and she verifies understanding, amenable. Did not Keppra load patient as she lists it as an allergy. Patient given home dose of lamictal. Discussed with Dr Harris who concurs. Also will benefit from further IV hydration for BASSEM. Discussed with deportation officer hospitalist SARANYA Jack; admission accepted. Medical Records Attestation: I reviewed the patient's medical records. Medical records narrative: Reviewed prevoiusly ED visits that involved seizures or for other presentations Lab Data Attestation: I reviewed the patient's lab results. 01/23/25 04:53 01/22/25 19:49 Labs: Lab Results 01/22/25 01/22/25 01/22/25 Range/Units 08:17 08:19 08:25 WBC 15.2 H (4.5-10.0) K/mm3 RBC 4.12 L (4.2-5.4) M/mm3 Hgb 13.4 (12.0-15.0) g/dL Hct 40.8 (37.0-47.0) % MCV 99.0 (80-100) fl MCH 32.5 (26-34) pg MCHC 32.8 (32-36) g/dl RDW 13.4 (11.5-14.5) % Plt Count 368 (150-375) k/mm3 MPV 9.5 (7.4-10.4) fl Immature Gran % (Auto) 0.7 H (0-0.5) % Neut % (Auto) 84.7 H (45.5-73.1) % Lymph % (Auto) 8.7 L (18.3-44.2) % [place] % (Auto) 5.2 (2.6-8.5) % Eos % (Auto) 0.2 (0-4.4) % Baso % (Auto) 0.5 (0.2-1.2) % Lymph # (Auto) 1.32 (0.9-3.2) K/mm3 [place] # (Auto) 0.8 H (0.1-0.6) K/mm3 Eos # (Auto) 0.0 (0-0.3) K/mm3 Baso # (Auto) 0.1 (0.0-0.1) K/mm3 Abs Immat Gran (auto) 0.10 H (0.00-0.031) K/mm3 Absolute Neuts (auto) 12.9 H (1.3-6.7) K/mm3 Absolute Nucleated RBC 0.000 (0.0-0.012) K/mm3 Nucleated RBC % 0.0 (0.0-0.2) % D-Dimer (<0.48) ug/mL Sodium 138 (137-145) mmol/L Potassium 3.8 (3.4-5.0) mmol/L Chloride 102 (98-107) mmol/L Carbon Dioxide 9 L (22-30) mmol/L Anion Gap 27 H (4-12) mmol/L BUN 10 (7-17) mg/dL Creatinine 1.27 H (0.7-1.0) mg/dL Estim Creat Clear Calc 50 ml/min Estimated GFR 51 L (59 - ) Glucose 217 H (65-110) mg/dL Hemoglobin A1c 4.4 (<5.7) % Lactic Acid 11.8 H* (0.7-2.0) mmol/L Calcium 9.0 (8.4-10.2) mg/dL Magnesium 2.2 (1.6-2.3) mg/dL Total Bilirubin 1.0 (0.2-1.3) mg/dL AST 48 H (14-36) U/L ALT 46 H (6-35) U/L Alkaline Phosphatase 81 (38-126) U/L Total Protein 8.0 (6.3-8.2) g/dL Albumin 5.1 (3.5-5.1) g/dL Lipase 90 (23-300) U/L Beta-Hydroxybutyrate/Acetoacetate 0.30 H (0.02-0.27) mmol/L TSH 2.210 (0.465-4.680) uIU/mL Urine Color Yellow (Yellow) Urine Appearance Turbid H (Clear) Urine pH 5.5 (5.0-9.0) Ur Specific [place] 1.019 (1.001-1.035) Urine Protein 2+ H (Negative) mg/dL Urine Glucose (UA) Negative (Negative) mg/dL Urine Ketones 1+ H (Negative) mg/dL Ur Blood (Man) 3+ H (Negative) Urine Nitrate Negative (Negative) Urine Bilirubin Negative (Negative) Urine Urobilinogen 0.2 (<2.0) mg/dL Add Ur Microanalysis Reviewed Leukocyte Esterase Rfl 1+ H (Negative) PAVITHRA/UL Urine RBC >100 H (0-2) /hpf Urine WBC 21-50 H (0-3) /hpf Ur Squamous Epith Cells Many H (Few) /hpf Urine Bacteria 4+ H /hpf Urine Casts 6-10 POC Urine HCG, Qual (Negative) Urine Opiates Screen Negative (Negative) Urine Methadone Screen Negative (Negative) Ur Barbiturates Screen Negative (Negative) Lamotrigine Pending Ur Phencyclidine Scrn Negative (Negative) Ur Amphetamine Screen Negative (Negative) U Benzodiazepines Scrn Negative (Negative) Urine Cocaine Screen Positive A (Negative) U Cannabinoids Screen Positive A (Negative) Influenza A (RT-PCR) Negative (Negative) Influenza B (RT-PCR) Negative (Negative) RSV (RT-PCR) Negative (Negative) SARS-CoV-2 RNA (RT-PCR) Negative (Negative) 01/22/25 01/22/25 01/22/25 Range/Units 08:28 10:50 14:32 WBC (4.5-10.0) K/mm3 RBC (4.2-5.4) M/mm3 Hgb (12.0-15.0) g/dL Hct (37.0-47.0) % MCV (80-100) fl MCH (26-34) pg MCHC (32-36) g/dl RDW (11.5-14.5) % Plt Count (150-375) k/mm3 MPV (7.4-10.4) fl Immature Gran % (Auto) (0-0.5) % Neut % (Auto) (45.5-73.1) % Lymph % (Auto) (18.3-44.2) % [place] % (Auto) (2.6-8.5) % Eos % (Auto) (0-4.4) % Baso % (Auto) (0.2-1.2) % Lymph # (Auto) (0.9-3.2) K/mm3 [place] # (Auto) (0.1-0.6) K/mm3 Eos # (Auto) (0-0.3) K/mm3 Baso # (Auto) (0.0-0.1) K/mm3 Abs Immat Gran (auto) (0.00-0.031) K/mm3 Absolute Neuts (auto) (1.3-6.7) K/mm3 Absolute Nucleated RBC (0.0-0.012) K/mm3 Nucleated RBC % (0.0-0.2) % D-Dimer 0.53 H (<0.48) ug/mL Sodium (137-145) mmol/L Potassium (3.4-5.0) mmol/L Chloride (98-107) mmol/L Carbon Dioxide (22-30) mmol/L Anion Gap (4-12) mmol/L BUN (7-17) mg/dL Creatinine (0.7-1.0) mg/dL Estim Creat Clear Calc ml/min Estimated GFR (59 - ) Glucose (65-110) mg/dL Hemoglobin A1c (<5.7) % Lactic Acid 0.7 (0.7-2.0) mmol/L Calcium (8.4-10.2) mg/dL Magnesium (1.6-2.3) mg/dL Total Bilirubin (0.2-1.3) mg/dL AST (14-36) U/L ALT (6-35) U/L Alkaline Phosphatase (38-126) U/L Total Protein (6.3-8.2) g/dL Albumin (3.5-5.1) g/dL Lipase (23-300) U/L Beta-Hydroxybutyrate/Acetoacetate (0.02-0.27) mmol/L TSH (0.465-4.680) uIU/mL Urine Color (Yellow) Urine Appearance (Clear) Urine pH (5.0-9.0) Ur Specific [place] (1.001-1.035) Urine Protein (Negative) mg/dL Urine Glucose (UA) (Negative) mg/dL Urine Ketones (Negative) mg/dL Ur Blood (Man) (Negative) Urine Nitrate (Negative) Urine Bilirubin (Negative) Urine Urobilinogen (<2.0) mg/dL Add Ur Microanalysis Leukocyte Esterase Rfl (Negative) PAVITHRA/UL Urine RBC (0-2) /hpf Urine WBC (0-3) /hpf Ur Squamous Epith Cells (Few) /hpf Urine Bacteria /hpf Urine Casts POC Urine HCG, Qual Negative (Negative) Urine Opiates Screen (Negative) Urine Methadone Screen (Negative) Ur Barbiturates Screen (Negative) Lamotrigine Ur Phencyclidine Scrn (Negative) Ur Amphetamine Screen (Negative) U Benzodiazepines Scrn (Negative) Urine Cocaine Screen (Negative) U Cannabinoids Screen (Negative) Influenza A (RT-PCR) (Negative) Influenza B (RT-PCR) (Negative) RSV (RT-PCR) (Negative) SARS-CoV-2 RNA (RT-PCR) (Negative) Imaging Data Radiologist's impression: IMPRESSION: No acute cardiopulmonary pathology. IMPRESSION: No acute intracranial findings. Postoperative changes in the left temporal lobe with encephalomalacia. ECG Data EKG #1: Attestation: I personally reviewed and interpreted this ECG as follows: ECG completion date: 01/22/25 ECG completion time: 08:10 Interpretation: Sinus tachycardia at a rate of 146 beats per minute. AK interval 134. QRS 88. QT/QTC 269/353. Good R-wave progression across the precordial leads. Patient has ST depressions in V3 and V4 to a greater extent but also present in V5 and V6. Discharge Plan Discharge Clinical Impression: Seizure, Status epilepticus, Leukocytosis, BASSEM (acute kidney injury), Encephalomalacia on imaging study, Post-ictal confusion UTI (urinary tract infection) Qualifiers: Urinary tract infection type: acute cystitis Hematuria presence: without hematuria Qualified Code(s): N30.00 - Acute cystitis without hematuria Patient Disposition: Still a Patient Condition: Stable
--- NOTE | 2025-01-22 08:13 | ECG_ITS ---
Test Date: 2025-01-22 08:10:42 Measurements Intervals Morgan Rate: 146 P: 61 AR: 134 QRS: 85 QRSD: 88 T: 55 QT: 269 QTc: 420 Interpretive Statements SINUS TACHYCARDIA NONSPECIFIC ST ABNORMALITY ABNORMAL ECG Electronically Signed On 01-22-2025 12:27:49 CDT by Mark Alexander M.D.
[2025-01-22 08:30] LABS: BEDSIDEPREGUCG Negative (Negative)
[2025-01-22] MEDS: SODIUM CHLORIDE 0.9% IV 1,000 ML 999 ML IV CONT ×2 (08:34→12:18)
[2025-01-22 08:35] LABS: Basophils Absolute Auto 0.1 K/mm3 (0.0-0.1); Basophils Percent Auto 0.5 % (0.2-1.2); Eosinophils Percent Auto 0.2 % (0-4.4); Hematocrit 40.8 % (37.0-47.0); Hemoglobin 13.4 g/dL (12.0-15.0); Immature Granulocyte Percent A 0.7 % (0-0.5); Lymphocytes Absolute Auto 1.32 K/mm3 (0.9-3.2); Lymphocytes Percent Auto 8.7 % (18.3-44.2); Mean Corpuscular HGB Conc 32.8 g/dl (32-36); Mean Corpuscular Hemoglobin 32.5 pg (26-34); Mean Platelet Volume 9.5 fl (7.4-10.4); Monocytes Absolute Auto 0.8 K/mm3 (0.1-0.6); Monocytes Percent Auto 5.2 % (2.6-8.5); Neutrophils Absolute Auto 12.9 K/mm3 (1.3-6.7); Neutrophils Percent Auto 84.7 % (45.5-73.1); Platelet Count Result 368 k/mm3 (150-375); Red Blood Count 4.12 M/mm3 (4.2-5.4); Red Cell Distribution Width 13.4 % (11.5-14.5); White Blood Count 15.2 K/mm3 (4.5-10.0)
[2025-01-22 08:48] LABS: Albumin Level 5.1 g/dL (3.5-5.1); Alkaline Phosphatase 81 U/L (38-126); Anion Gap 27 mmol/L (4-12); Aspartate Amino Transferase 48 U/L (14-36); Blood Urea Nitrogen 10 mg/dL (7-17); Carbon Dioxide 9 mmol/L (22-30); Chloride 102 mmol/L (98-107); Estimated CRCL calculation 50 ml/min; Estimated Glomerular Filt Rate 51; Glucose 217 mg/dL (65-110); Magnesium 2.2 mg/dL (1.6-2.3); Potassium 3.8 mmol/L (3.4-5.0); Sodium 138 mmol/L (137-145)
[2025-01-22 08:55] LABS: Bacteria Urine 4+ /hpf; Need Manual Microscopic Reviewed; RBC Urine >100 /hpf (0-2); Squamous Epithelial Cell Urine Many /hpf (Few); WBC Urine 21-50 /hpf (0-3)
[2025-01-22 09:01] LABS: Alanine Aminotransferase 46 U/L (6-35)
[2025-01-22 09:02] LABS: Lactic Acid Reflex 11.8 mmol/L (0.7-2.0)
[2025-01-22 09:10] LABS: Influenza A QL RT-PCR Negative (Negative); Influenza B QL RT-PCR Negative (Negative); RSV RNA, RT-PCR Negative (Negative); SARS-CoV-2 RNA PCR Negative (Negative)
[2025-01-22 09:18] LABS: Add Urine Microscopic? YES; Appearance Urine Turbid (Clear); Bilirubin Urine Negative (Negative); Blood Urine 3+ (Negative); Color Urine Yellow (Yellow); Glucose Urine UA Negative (Negative); Ketones Urine 1+ mg/dL (Negative); Leukocyte Esterase Ur 1+ LEU/UL (Negative); Nitrate Urine Negative (Negative); Protein Urine 2+ mg/dL (Negative); Specific Grav Ur 1.019 (1.001-1.035); Urobilinogen Urine 0.2 mg/dL (<2.0); pH Urine 5.5 (5.0-9.0)
--- OUTSIDE RECORDS SUMMARY | 2025-01-22 09:26 | XMS_ITS | Clinical Summary ---
Author Organization [facility] Main [facility] s Address [address] [place] [address] Care Team Providers Care Lead Cytogenetic Technologist Name Role Phone Sabrina Boyer Primary Care Provider [phone] Allergies Active Allergy Reactions Criticality Noted Date [...] 07/01/2022 H/O cold sores 07/01/2022 Breakthrough seizure 06/25/2022 Routine adult health maintenance 06/14/2022 Overview [...] to scheduled appointments--LVM for Dr. 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 Intraparenchymal hemorrhage of brain 08/19/2015 Cerebral arteriovenous malformation 08/19/2015 Arteriovenous disorder 02/22/2011 Resolved Problems Problem Noted Date Diagnosed Date Resolved Date History of surgical procedure 05/11/2016 06/14/2022 Immunizations Immunization Administration Dates Next Due DTaP 06/20/2005, 1,2000,2000, [...] on file Legal Sex Female 10:08 PM FILTER TIP CATCHER Gender Identity Not on file Sexual Orientation Not on file 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 Clinical Trials Assistant Hemant Ronquillo Comment: LIDYA BURGOS(ASCP) CT Screening location: [facility] Administration [place] [address] Review structured cabling technician Sandy Stone Comment: LIDYA SOLORIO(ASCP) CT screening location: [place] [address] Administration [place] [address] Comment Sandy Stone Comment: EXPLANATORY NOTE: The [...] LAB CYTOLOGY ORDERABLES F inal Result SANDY Sandy ChartboostBen Stone [address] [address] [place] [address] * N. gonorrhoeae/C. trachomatis Amplification Urine (09/02/2022 6:22 PM CDT) C. trachomatis Not Detected Not Detected DIEUDONNE DONG Comment:Testing performed by : [facility], [address] [place] [address]., [address] N. gonorrhoeae Not Detected Not Detected DIEUDONNE Comment: Interpretive Data Testing performed by the [facility]. This assay detects Chlamydia [...] last revised on 2019. Testing performed by: [facility], [address] [place] [address], [place]., [address] Urine (None) 09/02/2022 6:22 PM CDT 09/02/2022 6:38 PM CDT Liliane Locke NP LAB MICROBIOLOGY - GENERAL ORDER MINERVA Final Result Performing Organization Address [facility] de Phone Number [facility] [address] [facility] [place] [address] * Hepatitis C antibody (09/02/2022 6:19 PM CDT) Hep C Ab Nonreactive Nonreactive DIEUDONNE Comment: Interpretive Data Nonreactive: Antibodies to HCV [...] ORDER MINERVA Final Result Performing Organization Address City/[facility] Co de Phone Number [place] [address] [place] [address] from Last 3 Months or Most Recently Relevant to Health Maintenance Insurance [employer] [place] Member Subscriber Plan / Payer ( fective 2017-Present) Name:Mikki Batista Relation to Subscriber:Child Name:PADMINI BATISTA Date of :1965 (Home) Address: [address] [place] [id number] Payer ID:[id number] (NAIC) Type:BC OTHER Address: [place] [id number] [place] [place] [place] [employer] [place] [employer] OPEN ACCESS Advance Directives For more information, please contact: [phone] Documents on File Type Date Recorded Patient Director Of Mobile Marketing Expl anation ADVANCE DIRECTIVE 11/30/2020 2:14 PM [email or web address] .[email or web address] * Full Code (Latest Code Status on File) Date Activated Date Inactivated Comments 06/25/2022 8:58 PM 06/27/2022 9:39 PM * Full Code Date Activated Date Inactivated Comments 02/23/2021 7:56 AM 02/26/2021 9:28 PM Care Teams Lead Cytogenetic Technologist Relationship Specialty Start Date End Date Sabrina Boyer PA [address] [place] [address] PCP - General Family Medicine 06/06/22
--- OUTSIDE RECORDS SUMMARY | 2025-01-22 09:26 | XMS_ITS ---
Author Organization [facility] [employer] [facility] Address [address] [facility] [address] [place] [address] Care Team Providers Care Project Drilling Engineer Name Role Phone Bea Sanz Unavailable [phone] Encounters Encounter Location Date Provider Diagnosis [facility] [employer] [facility] [address] [facility] [address] [place] [address] 05/21/2024 Bea Sanz Plan Of Treatment No Information Progress Notes * JAYDA BATISTADOB:2000 (25 yo F)Acc No.[id number]:05/21/2024 Patient: JAYDA MASSEY Provider: CHRISTINA SNYDER :2000 A ge:24 Y S ex:Female Date:05/21/2024 Address:[address] [place], [place] [id number] Subjective: * Chief Complaints: * * Medical History: Objective: * Vitals: Assessment: Plan: * Treatment: * Billing Information: * Visit Code: * Procedure Codes: * Electronic signature of CHRISTINA Hart on 01/22/2025 at 09:26 AM CDT Sign off status: Pending * Provider: CHRISTINA SNYDER Date: 0 05/21/2024 Generated for Mackenzie ng/Fajoe/eTransmitting on: 0 01/22/2025 09:26 AM CDT
--- OUTSIDE RECORDS SUMMARY | 2025-01-22 09:26 | XMS_ITS | Referral Summary ---
Author Organization [facility] Main [facility] s Address [address] [place] [address] Care Team Providers Care Extender Name Role Phone Sabrina Boyer Primary Care Provider [phone] Allergies Active Allergy Reactions Criticality Noted Date [...] to scheduled appointments--LVM for Dr. 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 Therapist Physical Hemant Ronquillo Comment: LIDYA BURGOS(ASCP) CT Screening location: [facility] [address] [place] [address] Review shortage worker Rhea Stone Comment: LIDYA SOLORIO(ASCP) CT screening location: [place] [address] Administration ROL[place] Castano [facility] Comment Rhea Stone Comment: EXPLANATORY NOTE: The [...] MCCARTHY LAB CYTOLOGY ORDERABLES F inal Result Performing Organization Address City/State/[facility] [[email or web address]] Co de Phone Number [facility] [address] [place] [address] * N. gonorrhoeae/C. trachomatis Amplification Urine (09/02/2022 6:22 PM CDT) [facility] C. trachomatis Not Detected Not Detected DIEUDONNE Comment:Testing performed by : [facility], [address] [place] [address]., [address] N. gonorrhoeae Not Detected Not Detected DIEUDONNE Comment: Interpretive Data Testing performed by the [facility]. This assay detects Chlamydia trachomatis and [...] last revised on 2019. Testing performed by: [facility], [address] [place] [address]., [address] Urine (None) 09/02/2022 6:22 PM CDT 09/02/2022 6:38 PM CDT Liliane Locke NP LAB MICROBIOLOGY - GENERAL ORDER MINERVA Final Result Performing Organization Address City/[facility] [[email or web address]] Co de Phone Number DIEUDONNE [address] [facility] Department [place] [address] * Hepatitis C antibody (09/02/2022 6:19 PM CDT) [facility] Hep C Ab Nonreactive Nonreactive DIEUDONNE Comment: [...] 6:19 PM CDT 09/02/2022 8:23 PM CDT us Liliane Locke NP LAB MICROBIOLOGY - GENERAL ORDER MINERVA Final Result DIEUDONNE MH [address] [facility] Department [place] [address] from Last 3 Months or Most Recently Relevant to Health Maintenance Insurance [place] [place] [address] [place] [id number] [employer] [place] [employer] [employer] OPEN ACCESS Advance Directives For more information, please contact: [phone] Documents on File Type Date Recorded Patient Locker Attendant Expl anation ADVANCE DIRECTIVE 11/30/2020 2:14 PM [email or web address] .[email or web address] * Full Code (Latest Code Status on File) Date Activated Date Inactivated Comments 06/25/2022 8:58 PM 06/27/2022 9:39 PM * Full Code Date Activated Date Inactivated Comments 02/23/2021 7:56 AM 02/26/2021 9:28 PM Care Teams Extender Relationship Specialty Start Date End Date Sabrina Boyer PA [address] [place] [address] PCP - General Family Medicine 06/06/22
--- OUTSIDE RECORDS SUMMARY | 2025-01-22 09:27 | XMS_ITS ---
Author Organization [facility] Address [facility] [address] Care Team Providers Care Interim Controller Name Role Phone Miguelinajosé miguelSixto jamisonet Unavailable [phone] Medications Medication SIG (Take, Route, Frequency, Duration) Notes Start Date End Date Status QUEtiapine Fumarate 200 MG Oral for 30 days 2023 Active Encounters Encounter Location Date Provider Diagnosis [facility] [employer] [place] [id number] [address] 08/20/2024 Bea Sanz Plan Of Treatment Medication Medication Name Sig Start Date Stop Date Notes QUEtiapine Fumarate 200 MG Oral for 30 days 03/18/2024 Progress Notes * JAYDA BATISTADOB:2000 (24 yo F)Acc No.[id number]:08/20/2024 Patient: JAYDA MASSEY :2000 A ge:24 Y S ex:Female Address:[address] [place] [address], [address] * Refills Refill QUEtiapine Fumarate Tablet, 200 MG, Oral, 30 days, Refills=0 Subjective: * Chief Complaints: * * Medical History: * Surgical History: * Hospitalization/Major Diagno stic Procedure: * Medications: Objective: * Vitals: * Physical Examination: Assessment: Plan: * Treatment: * Procedure Codes: * true * Date: Generated for Printi ng/Faxing/eTransmitting on: 0 01/22/2025 09:26 AM CDT
--- OUTSIDE RECORDS SUMMARY | 2025-01-22 09:27 | XMS_ITS | Clinical Summary ---
Author Organization [facility] Address [address] [place] [address] Care Team Providers Care Herb Digger Name Role Phone Sabrina Boyer PA-C Primary Care Provider [phone] Allergies Active Allergy Reactions Criticality Noted Date [...] patient's age to complete this topic Insurance [employer] Care Teams Herb Digger Relationship Specialty Start Date End Date Sabrina Boyer PA-C [address] [place] [address] PCP - General PHYSICIAN SCIENCE PROFESSOR 04/20/23
--- OUTSIDE RECORDS SUMMARY | 2025-01-22 09:27 | XMS_ITS ---
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 Role Phone Migration, Provider Unavailable Unavailable Allergies Allergen (clinical drug ingredient) Drug/Non Drug Allergy documented on EMR Reaction Allergy Type Onset Date Status Substance with sulfonamide structure and antibacterial mechanism of action (substance) SULFA (SULFONAMIDE ANTIBIOTICS) (uncoded) Unknown Allergy 03/18/2024 Active levetiracetam levETIRAcetam Unknown Drug Allergy Active nickel Nickel Unknown Allergy 03/18/2024 Active vancomycin Vancomycin Unknown Drug Allergy 03/18/2024 Acti ve REASON FOR VISIT EMR-[facility]bert Medications Medication SIG (Take, Route, Frequency, Duration) Notes Start Date End Date Status Escitalopram Oxalate 5 MG Oral 03/18/2024 Active lamoTRIgine 150 MG Oral 03/18/2024 Active cloNIDine HCl 0.1 MG Oral 03/18/2024 Active QUEtiapine Fumarate 25 MG Oral 03/18/2024 Active QUEtiapine Fumarate 200 MG Oral 03/18/2024 Active LACOSAMIDE 100 MG TABLET *Reorder from [employer] for eRx and Interaction Alerts* 03/18/2024 Active lamoTRIgine 200 MG Oral 03/18/2024 Active Ondansetron 4 MG Oral 03/18/2024 Ac tive traMADol HCl 50 MG Oral 03/18/2024 Active Betamethasone Dipropionate 0.05 % External 03/18/2024 Active KYLEENA 17.5 MCG/24 HR (UP TO 5 YEARS) 19.5 MG INTRAUTERINE DEVICE *Reorder from [employer] for eRx and Interaction Alerts* 03/18/2024 Active valACYclovir HCl 1 GM Oral 03/18/2024 Active Famotidine 20 MG Oral 03/18/2024 Ac tive Encounters Encounter Location Date [facility] [place] [address] [facility] [address] [place] [address] 03/24/2024 Provider Migration Plan Of Treatment No Information Progress Notes * LYNNE JAYDADOB:2000 (24 yo F)Acc No.[id number]:03/24/2024 Patient: JAYDA MASSEY :2000 A ge:24 Y S ex:Female Address:[address] [place] [address], [place], [address] Subjective: * Chief Complaints: * E MR-Delbert * 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 * Surgical History: R econstructive surgery 01/13/2011Cosmetic surgery 02/04/2017Neurosurgery 05/16/2010ny surgical history 06/28/2012 * Hospitalization/Major Diagno stic Procedure: * Family History: U nspecified Relation: Epilepsy , Alcohol abuse , Bipolar disorder , Depressive disorder , Anxiety disorder , History of attempted suicide . F ather: No current problems or disability . M other: No current problems or disability . S ister: Anxiety disorder . * Social History: M igrated Social History: M igrated Social History: Alcohol Intake: Occasional 01/18/2021,Tobacco Years: Never smoker 01/18/2021. * Medications: T akingBetamethasone Dipropionate 0.05 % Lotion External Ondansetron 4 MG Tablet Disintegrating Oral KYLEENA 17.5 MCG/24 HR (UP TO 5 YEARS) 19.5 MG INTRAUTERINE DEVICE , Notes to Pharmacist: *Reorder from [facility] for eRx and Interaction Alerts*QUEtiapine Fumarate 25 MG Tablet Oral QUEtiapine Fumarate 200 MG Tablet Oral lamoTRIgine 150 MG Tablet Oral LACOSAMIDE 100 MG TABLET , Notes to Pharmacist: *Reorder from [facility] for eRx and Interaction Alerts*cloNIDine HCl 0.1 MG Tablet Oral Escitalopram Oxalate 5 MG Tablet Oral valACYclovir HCl 1 GM Tablet Oral Famotidine 20 MG Tablet Oral lamoTRIgine 200 MG Tablet Oral traMADol HCl 50 MG Tablet Oral Taking Betamethasone Dipropionate 0.05 % Lotion External Taking Ondansetron 4 MG Tablet Disintegrating Oral Taking KYLEENA 17.5 MCG/24 HR (UP TO 5 YEARS) 19.5 MG INTRAUTERINE DEVICE , Notes to Pharmacist: *Reorder from [facility] for eRx and Interaction Alerts*Taking QUEtiapine Fumarate 25 MG Tablet Oral Taking QUEtiapine Fumarate 200 MG Tablet Oral Taking lamoTRIgine 150 MG Tablet Oral Taking LACOSAMIDE 100 MG TABLET , Notes to Pharmacist: *Reorder from [facility] for eRx and Interaction Alerts*Taking cloNIDine HCl 0.1 MG Tablet Oral Taking Escitalopram Oxalate 5 MG Tablet Oral Taking valACYclovir HCl 1 GM Tablet Oral Taking Famotidine 20 MG Tablet Oral Taking lamoTRIgine 200 MG Tablet Oral Taking traMADol HCl 50 MG Tablet Oral * Allergies: S ULFA (SULFONAMIDE ANTIBIOTICS): Allergy - Onset Date 03/18/2024levETIRAcetam: Allergy - Onset Date 03/18/2024Nickel: Allergy - Onset Date 03/18/2024Vancomycin: Allergy - Onset Date 03/18/2024 Objective: * Vitals: * Physical Examination: Assessment: Plan: * Treatment: * Procedure Codes: * true * Date: Generated for Mackenzie ventura/Nubia/Teresa on: 0 01/22/2025 09:26 AM CDT
[2025-01-22 09:43] LABS: Amphetamine Screen Urine Negative (Negative); Barbiturate Screen Urine Negative (Negative); Benzodiazepines Screen Urine Negative (Negative); Cannabinoid Screen Urine Positive (Negative); Cocaine Screen Urine Positive (Negative); Methadone Screen Urine Negative (Negative); Opiate Screen Urine Negative (Negative); Phencyclidine Screen Urine Negative (Negative)
--- NOTE | 2025-01-22 09:48 | PC.NURSE ---
pt eyes are now opened. when pt tries to talk its mumbling. pt is still not coherent
[2025-01-22 10:32] LABS: Reflex Lactic Acid Yes or No Add Lactic
--- NOTE | 2025-01-22 10:50 | PC.NURSE ---
pt pulled out nasal trumpet
[2025-01-22 11:09] LABS: Lactic Acid 0.7 mmol/L (0.7-2.0)
[2025-01-22] MEDS: lamoTRIgine 100 MG TABLET 200 MG PO (12:18)
[2025-01-22 13:12] LABS: Lipase 90 U/L (23-300)
[2025-01-22 13:40] LABS: Hemoglobin A1C 4.4 % (<5.7)
[2025-01-22 14:56] LABS: D Dimer 0.53 ug/mL (<0.48)
--- NOTE | 2025-01-22 17:21 | ADMGEN ---
This patient, Jolanta Yen, was admitted to Medical Room 247-. Patient/family oriented to hospital policies and general routines including ID bracelet, bed and alarms, visiting hours, pain management, procedures, bathroom and other care routines, personal items, smoking policy, room service/diet, and visiting hours. Information on how to activate the Rapid Response Team has been discussed. Patient/Family are encouraged to report perceived risks to care and to ask questions if they do not understand what they are told or what they should do.
--- NOTE | 2025-01-22 17:52 | P.HP_ITS ---
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 The patient presents here from home via EMS for further evaluation of recurrent seizures. The patient began having multiple seizures starting around 1 am last night. She has had 6 while at home. Patient initially refused to come to the hospital. However today she again had multiple seizure episodes. The patient's boyfriend reports that after the last 3 seizure she did not regain consciousness. He called EMS, upon their arrival the patient had a a seizure for which she was given 10 mg of Versed IM. Arrived to the emergency department with sonorous respirations and oral trauma. The patient is currently A/Ox4, fatigued, and feels slightly foggy. Last seizure prior to the last 24 hours was 1 month ago. They did not make any changes to her medications at that time. She reports she first started having seizures in 2018/2018. No precipitating trauma. Initial VS at presentation: 98.1? F, HR 139, R 24, 126/73, and 96% on RA. ED workup showed: WBC 15.2, no anemia, elevated D-dimer (no indication for PE using YEARS algorithm), creatinine 1.27 and GFR 51 (previously 0.85 and GFR >60 on 12/12/2024), glucose 217 with an A1c of 4.4%, beta hydroxy 0.3, and UA suspicious for UTI however has many epithelial cells. UDS positive for cocaine and cannabinoids. Viral PCR negative. CXR showed no acute cardiopulmonary pathology. Head CT showed no acute intra or findings, postoperative changes in the left temporal lobe with encephalomalacia. Review of Systems Review of Systems: All systems reviewed & are unremarkable except as noted in HPI and below [facility] Past Medical History Medical History Seizure disorder 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 Elevated INR Suicidal overdose Liver failure, acute Family History Family History Sibling Depression Grandparent Cerebrovascular accident Social History Social History Social History: caffeine use Smoking status: Current some day smoker Tobacco type: e-cigarettes/vaping Alcohol intake: current Drinks per week: 30 Substance use: current Substance use type: marijuana Do You Feel Safe in your Home?: No Lack of Transportation: No Lack of Food: Never True Current Housing: I Have Housing Concerned About Future Housing: No Difficulty Paying Gas/Electric Bills: No Difficulty Paying for Meds: No Currently Unemployed: No Education: Associate Degree Difficulty w/ Childcare or Family Care: No Spiritual care concerns: No Meds Home Medications and Allergies Home Medications ?Medication ?Instructions ?Recorded ?Confirmed ?Type clonidine HCl 0.1 mg tablet 0.1 mg PO BID 03/28/24 01/22/25 History escitalopram oxalate 5 mg tablet 5 mg PO DAILY 03/28/24 01/22/25 History lamotrigine 200 mg tablet 200 mg PO BID 03/28/24 01/22/25 History quetiapine 200 mg tablet 200 mg PO HS 03/28/24 01/22/25 History Allergies Allergy/AdvReac Type Severity Reaction Status Date / Time levetiracetam (From [facility]) Allergy Itching,Wilfred Verified 01/22/25 08:17 sea Sulfa (Sulfonamide AdvReac Unknown Verified 01/07/25 07:41 Antibiotics) vancomycin AdvReac Other Verified 01/07/25 07:41 Vital Signs Vital Signs - 24 hr 01/22/25 08:15 01/22/25 08:15 01/22/25 08:22 Temperature 98.1 F Pulse Rate 139 H 120 H Respiratory Rate 24 H 29 H Blood Pressure 126/73 126/73 Pulse Oximetry 96 94 99 Oxygen Delivery Room Air Room Air Oxygen Flow Rate 01/22/25 08:30 01/22/25 08:32 01/22/25 09:12 Temperature Pulse Rate 114 H 123 H Respiratory Rate 20 Blood Pressure 126/90 Pulse Oximetry 96 100 Oxygen Delivery Nasal Cannula Oxygen Flow Rate 2 01/22/25 09:15 01/22/25 09:48 01/22/25 10:00 Temperature Pulse Rate 112 H 99 Respiratory Rate 22 H 21 H Blood Pressure 128/91 H 128/85 Pulse Oximetry 98 98 97 Oxygen Delivery Room Air Oxygen Flow Rate 01/22/25 11:30 01/22/25 11:31 01/22/25 12:31 Temperature Pulse Rate 104 H 103 H 106 H Respiratory Rate 25 H 20 25 H Blood Pressure 131/89 109/68 Pulse Oximetry 97 97 99 Oxygen Delivery Oxygen Flow Rate 01/22/25 13:01 01/22/25 13:16 01/22/25 13:46 Temperature Pulse Rate 111 H 128 H 110 H Respiratory Rate 23 H 20 17 Blood Pressure 107/59 L 127/78 109/68 Pulse Oximetry Oxygen Delivery Oxygen Flow Rate 01/22/25 14:35 01/22/25 14:36 01/22/25 15:01 Temperature 100.2 F H Pulse Rate 108 H 104 H 105 H Respiratory Rate 16 20 22 H Blood Pressure 123/69 123/69 121/73 Pulse Oximetry 99 Oxygen Delivery Oxygen Flow Rate 01/22/25 16:01 01/22/25 16:46 01/22/25 16:47 Temperature 98.3 F 98.3 F Pulse Rate 100 Respiratory Rate 20 Blood Pressure 109/65 Pulse Oximetry Oxygen Delivery Oxygen Flow Rate Exam Const: General: comfortable and no acute distress Other: , female, nontoxic appearance HENMT: Face/Nose/Sinus: Normal nares present Mouth: Yes moist mucous membranes Eyes: General: appearance normal, both eyes and all related structures Sclera: sclerae normal Pupils: Equal, round and reactive pupils present EOM: EOMs intact bilaterally Resp: Effort & Inspection: normal respiratory effort Auscultation: clear to auscultation bilaterally Cardio: Rate: regular rate Rhythm: regular rhythm Other: S1-S2 present without murmur, rub, ectopy Skin: General skin exam: normal color and no rashes or lesions noted Wounds: no wounds Neuro: Speech: normal speech Motor exam (neuro): 5/5 motor strength present throughout Sensory Exam: normal sensation Other: A&O x4. No tremor on exam. Appropriately answering. Extrem: General: normal to inspection Psych: Mental Status: mental status grossly normal Affect: normal affect Other: Fair insight and judgment, pleasant H&P: Results Labs Labs: Short CBC 01/22/25 Range/Units 08:19 WBC 15.2 H (4.5-10.0) K/mm3 Hgb 13.4 (12.0-15.0) g/dL Hct 40.8 (37.0-47.0) % Plt Count 368 (150-375) k/mm3 [facility] 01/22/25 08:19 Sodium 138 Potassium 3.8 Chloride 102 Carbon Dioxide 9 L BUN 10 Creatinine 1.27 H Glucose 217 H Calcium 9.0 Liver Function 01/22/25 Range/Units 08:19 Total Bilirubin 1.0 (0.2-1.3) mg/dL AST 48 H (14-36) U/L ALT 46 H (6-35) U/L Alkaline Phosphatase 81 (38-126) U/L Albumin 5.1 (3.5-5.1) g/dL Urine 01/22/25 Range/Units 08:19 Urine Color Yellow (Yellow) Urine Appearance Turbid H (Clear) Urine pH 5.5 (5.0-9.0) Ur Specific [place] 1.019 (1.001-1.035) Urine Protein 2+ H (Negative) mg/dL Urine Glucose (UA) Negative (Negative) mg/dL Assessment and Plan Assessment and plan (1) Seizure: Code(s): R56.9 - Unspecified convulsions Status: Acute Assessment and Plan: - Head CT No acute intracranial findings. Postoperative changes in the left temporal lobe with encephalomalacia. - seizure precautions - check Lamictal level - neurology consulted - UDS: +cocaine and marijuana - continue home medications: Lamictal 200 mg b.i.d. and Clonidine 0.1 mg b.i.d. Seizure threshold may be lower due to current infection, UA suspicious for UTI. Will start treatment. Differential includes breakthrough seizures versus status epilepticus. (2) UTI (urinary tract infection): Qualifiers: Hematuria presence: without hematuria Urinary tract infection type: acute cystitis Qualified Code(s): N30.00 - Acute cystitis without hematuria Code(s): N39.0 - Urinary tract infection, site not specified Status: Acute Assessment and Plan: - UA: Turbid, 2+ protein, 1+ ketones, 3+ blood, 1+ leuks, greater than 100 RBC, 21-50 WBC, many epithelial cells, 4+ bacteria. - UC pending - previous micro reviewed, E coli in October of 2024 which was resistant to Bactrim/gentamicin and intermediate to Unasyn. - started on Ceftriaxone on 01/22 (3) BASSEM (acute kidney injury): Code(s): N17.9 - Acute kidney failure, unspecified Status: Acute Assessment and Plan: - creatinine 1.27 and GFR 51, previously 0.85 and normal GFR on 12/12/2024 - trial IV fluids over the next 24 hours, if no improvement consider further workup and nephrology consultation. 2L bolus -> 75 mL/hr x1L - trend renal function - trend electrolytes, correct as needed Plan Diet: Regular GI Prophylaxis: Not currently indicated DVT Prophylaxis: Low risk Lines: Peripheral Code Status: Full code Quality If No VTE Prophylaxis Answer both mechanical and pharmacologic: Reason no mechanical VTE proph: low risk/not indicated Reason no pharmacologic proph: low risk/not indicated Hospitalist MIPS Advance Care Plan I have confirmed that the patient's Advanced Care Plan is present, code status is documented, or surrogate decision maker is listed in patient medical record.: Yes Medication Reconciliation I have utilized all available resources to obtain, update and review the patients current medications (includes all prescriptions, OTC, herbals, cannabis, and nutritional supplements).: Yes
[2025-01-22] MEDS: LACTATED RINGERS 1,000 ML 75 ML IV CONT (20:02)
[2025-01-22 20:10] LABS: Anion Gap 13 mmol/L (4-12); Blood Urea Nitrogen 5 mg/dL (7-17); Carbon Dioxide 17 mmol/L (22-30); Chloride 106 mmol/L (98-107); Estimated CRCL calculation 68 ml/min; Estimated Glomerular Filt Rate > 60; Glucose 78 mg/dL (65-110); Potassium 3.7 mmol/L (3.4-5.0); Sodium 136 mmol/L (137-145)
[2025-01-23] VITALS (11 sets, daily range): BP systolic 108–126; BP diastolic 70–85; PULSE 72–97; RESP 16–20; TEMP 36.4–36.9; O2SAT 97–99
[2025-01-23 05:41] LABS: Basophils Percent Auto 0.4 % (0.2-1.2); Eosinophils Percent Auto 0.7 % (0-4.4); Hemoglobin 12.5 g/dL (12.0-15.0); Immature Granulocyte Absolute 0.01 K/mm3 (0.00-0.031); Immature Granulocyte Percent A 0.2 % (0-0.5); Mean Corpuscular HGB Conc 32.9 g/dl (32-36); Mean Corpuscular Hemoglobin 32.5 pg (26-34); Mean Corpuscular Volume 98.7 fl (80-100); Mean Platelet Volume 9.9 fl (7.4-10.4); Monocytes Absolute Auto 0.4 K/mm3 (0.1-0.6); Monocytes Percent Auto 7.5 % (2.6-8.5); Neutrophils Absolute Auto 3.7 K/mm3 (1.3-6.7); Neutrophils Percent Auto 66.2 % (45.5-73.1); Platelet Count Result 233 k/mm3 (150-375); Red Blood Count 3.85 M/mm3 (4.2-5.4); Red Cell Distribution Width 13.3 % (11.5-14.5); White Blood Count 5.6 K/mm3 (4.5-10.0)
[2025-01-23] MEDS: lamoTRIgine 100 MG TABLET 200 MG PO (09:17)
[2025-01-23] MEDS: cloNIDine HCL 0.1 MG TABLET PO ×2 (09:18→17:33)
[2025-01-23] MEDS: ESCITALOPRAM OXALATE 5 MG TABLET PO (09:18)
[2025-01-23] MEDS: ONDANSETRON INJ 4 MG/2 ML VIAL IV PUSH (11:39)
--- NOTE | 2025-01-23 13:52 | P.PNIM_ITS ---
Progress Note: A&P Assessment and Plan (1) Seizure: Code(s): R56.9 - Unspecified convulsions Status: Acute Assessment and Plan: patient has history of seizures status post AVM and TBI * head CT was showing no acute intracranial findings, postoperative changes in the left temporal lobe with encephalomalacia * chest x-ray was negative for any cardiopulmonary process * Neurology consulted and following * neurology creased Lamictal to 200 mg p.o. Q a.m. and 300 mg p.o. Q HS * continue seizure precautions * urine drug screen was positive for cocaine and cannabinoids * respiratory panel was negative for influenza a and B, RSV, COVID * D-dimer 0.53, lactic acid was 0.7 * patient encouraged to abstain from illicit drug use (2) High anion gap metabolic acidosis: Code(s): E87.29 - Other acidosis Status: Acute Assessment and Plan: * initial bicarb 9, anion gap 27 * likely due to seizure activity however lactic acid level was 0.7 * today bicarb 17, anion gap 13, improved (3) UTI (urinary tract infection): Qualifiers: Hematuria presence: without hematuria Urinary tract infection type: acute cystitis Qualified Code(s): N30.00 - Acute cystitis without hematuria Code(s): N39.0 - Urinary tract infection, site not specified Status: Acute Assessment and Plan: * UA showed turbid urine appearance, 2+ urine protein, 1+ urine ketone, 3+ urine blood, 1+ leukocyte, greater than 100 urine RBC, 21-50 urine WBC, many urine squamous epithelial cells, 4+ urine bacteria, 6-10 urine cast * urine culture was obtained and pending * continue Rocephin for now (4) BASSEM (acute kidney injury): Code(s): N17.9 - Acute kidney failure, unspecified Status: Acute Assessment and Plan: * initial creatinine was 1.27, EGFR 51 * creatinine today 0.92, EGFR greater than 60 * she is now back to baseline-resolved (5) SVT (supraventricular tachycardia): Code(s): I47.10 - Supraventricular tachycardia, unspecified Status: Acute Assessment and Plan: * telemetry reviewed which shown a long run of SVT in the 150s * will continue to monitor with continuous telemetry * heart rate currently in the 80s Time Spent With Patient Time with patient: 25 - 35 minutes Subjective Date/time seen: 01/23/25 13:52 Interval history: Interval summary: this is a 25-year-old female with a significant past medical history of seizures, 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 Workup in the hospital included a chest x-ray which was negative. A head CT which was negative for any acute intracranial findings, shown postoperative changes in the left temporal lobe with encephalomalacia. Initial labs shown a white blood cell count of 15.2, D- dimer 0.53, bicarb 9, anion gap 27, creatinine 1.27, EGFR 51, blood sugar 217, AST 48, ALT 46, lactic acid 0.7. A UA was obtained which showed turbid urine appearance, 2+ urine protein, 1+ urine ketone, 3+ urine blood, 1+ leukocytes, greater than 100 urine RBC, 21-50 urine WBC, many urine squamous epithelial cells, 4+ urine bacteria, 6-10 urine cast. Urine drug screen was positive for cocaine and cannabinoids. Respiratory panel was negative for influenza a and B, RSV, COVID. Urine culture was obtained and is pending. EKG showed sinus tachycardia with a rate of 146, QTC 420. Patient was given 200 mg of Lamictal, started on Rocephin and maintenance IV fluids. Subjective: patient denies any fever, chills, nausea, vomiting, diarrhea, abdominal pain, chest pain, shortness a breath. She reports feeling fatigued. She denies any seizure activity since being at the hospital. When asked about her illicit drug use she states that she only smokes marijuana however her urine drug screen was positive for cocaine. She states that she has done cocaine in the past but only 4-5 times in her lifetime but nothing recently. Labs and imaging reviewed. Review of Systems Review of Systems: All systems reviewed & are unremarkable except as noted in HPI and below Exam Narrative: General: In no acute distress, well nourished Head: atraumatic, no encephalopathy Eyes: PERRLA, sclera clear ENT: moist mucous membranes, nasal passages clear Neck: supple, no JVD, no adenopathy, trachea midline Cardiac: Normal S1 and S2. No murmur, gallops or friction rubs, peripheral pulses intact. Respiratory: Lungs clear to auscultation, no adventitious lung sounds, currently on room air Gastrointestinal: soft, non-distended, non-tender, normoactive bowel sounds. : voiding without difficulty. Extremities: moves all extremities well, no edema Skin: clean, dry, intact. No wounds or lesions. Neuro: Alert and oriented x4, cranial nerves intact, no neuro deficits. Psych: normal mood, normal affect, interactive Objective Data Vital Signs Vital Signs: Vital Signs - 24 hr 01/22/25 14:35 01/22/25 14:36 01/22/25 15:01 Temperature 100.2 F H Pulse Rate 108 H 104 H 105 H Respiratory Rate 16 20 22 H Blood Pressure 123/69 123/69 121/73 Pulse Oximetry 99 Oxygen Delivery 01/22/25 16:01 01/22/25 16:46 01/22/25 16:47 Temperature 98.3 F 98.3 F Pulse Rate 100 Respiratory Rate 20 Blood Pressure 109/65 Pulse Oximetry Oxygen Delivery 01/22/25 17:50 01/22/25 20:00 01/22/25 21:16 Temperature 97.8 F Pulse Rate 82 80 Respiratory Rate 14 Blood Pressure 125/71 Pulse Oximetry 99 Oxygen Delivery Room Air 01/23/25 00:00 01/23/25 04:00 01/23/25 05:35 Temperature 97.6 F Pulse Rate 84 84 74 Respiratory Rate 16 Blood Pressure 108/83 Pulse Oximetry 97 Oxygen Delivery 01/23/25 08:00 01/23/25 09:15 01/23/25 10:28 Temperature Pulse Rate 88 Respiratory Rate Blood Pressure Pulse Oximetry 97 Oxygen Delivery Room Air Room Air 01/23/25 12:00 01/23/25 13:33 Temperature Pulse Rate 78 76 Respiratory Rate 20 Blood Pressure 126/70 Pulse Oximetry 98 Oxygen Delivery Intake/Output Intake/Output: Intake & Output 01/20/25 01/21/25 01/22/25 01/23/25 23:59 23:59 23:59 23:59 Intake Total 2050 200 Output Total 1400 1000 Balance 650 -800 Meds/Results Medications: Active Medications Generic Name Dose Route Start Last Admin Trade Name Freq PRN Reason Stop Dose Admin Acetaminophen 650 mg 01/22/25 15:34 Acetaminophen 325 Mg Tablet PO Q4H PRN Mild Pain (1-3) or Fever Clonidine HCl 0.1 mg 01/23/25 09:00 01/23/25 09:18 Clonidine Hcl 0.1 Mg Tablet PO 0.1 mg BID SADIQ Administration Escitalopram Oxalate 5 mg 01/23/25 09:00 01/23/25 09:18 Escitalopram Oxalate 5 Mg Tablet PO 5 mg DAILY SADIQ Administration Lamotrigine 200 mg 01/24/25 09:00 Lamotrigine 100 Mg Tablet PO QAM SADIQ Lamotrigine 300 mg 01/23/25 21:00 Lamotrigine 100 Mg Tablet PO QHS SADIQ Lorazepam 2 mg 01/22/25 18:45 Lorazepam Inj (*Crx) 2 Mg/Ml Vial IV PUSH ONCE PRN Seizure activity >2 mins. Ondansetron HCl 4 mg 01/22/25 15:34 01/23/25 11:39 Ondansetron Inj 4 Mg/2 Ml Vial IV PUSH 4 mg Q4H PRN Administration Nausea Quetiapine Fumarate 200 mg 01/22/25 21:00 01/23/25 07:04 Quetiapine Fumarate 100 Mg Tablet PO Not Given HS [facility] Radiology Results: ITS Impressions Chest X-Ray 01/22/25 09:05 IMPRESSION: No acute cardiopulmonary pathology. Head CT 01/22/25 09:25 IMPRESSION: No acute intracranial findings. Postoperative changes in the left temporal lobe with encephalomalacia. Labs Labs: Laboratory Results - last 24 hr 01/22/25 01/22/25 01/22/25 08:17 14:32 19:49 WBC RBC Hgb Hct MCV MCH MCHC RDW Plt Count MPV Immature Gran % (Auto) Neut % (Auto) Lymph % (Auto) Armstrong % (Auto) Eos % (Auto) Baso % (Auto) Lymph # (Auto) Armstrong # (Auto) Eos # (Auto) Baso # (Auto) Abs Immat Gran (auto) Absolute Neuts (auto) Absolute Nucleated RBC Nucleated RBC % D-Dimer 0.53 H Sodium 136 L Potassium 3.7 Chloride 106 Carbon Dioxide 17 L Anion Gap 13 H BUN 5 L D Creatinine 0.92 Estim Creat Clear Calc 68 Estimated GFR > 60 Glucose 78 Calcium 8.0 L Magnesium TSH 2.210 01/23/25 04:53 WBC 5.6 RBC 3.85 L Hgb 12.5 Hct 38.0 MCV 98.7 MCH 32.5 MCHC 32.9 RDW 13.3 Plt Count 233 MPV 9.9 Immature Gran % (Auto) 0.2 Neut % (Auto) 66.2 Lymph % (Auto) 25.0 Armstrong % (Auto) 7.5 Eos % (Auto) 0.7 Baso % (Auto) 0.4 Lymph # (Auto) 1.40 Armstrong # (Auto) 0.4 Eos # (Auto) 0.0 Baso # (Auto) 0.0 Abs Immat Gran (auto) 0.01 Absolute Neuts (auto) 3.7 Absolute Nucleated RBC 0.000 Nucleated RBC % 0.0 D-Dimer Sodium Potassium Chloride Carbon Dioxide Anion Gap BUN Creatinine Estim Creat Clear Calc Estimated GFR Glucose Calcium Magnesium 2.0 TSH Quality VTE Prophylaxis VTE prophylaxis: mechanical ordered
[2025-01-23] MEDS: LIDOCAINE 2% VISC SOLN 30 ML, ALUMINUM/MAGNESIUM/SIMETH SUSP 30 ML, diphenhydrAMINE HCl... PO ×2 (17:34→21:01)
--- NOTE | 2025-01-23 17:37 | P.CONNEU_ITS ---
Assessment and Plan Assessment and plan (1) Seizure disorder: Code(s): G40.909 - Epilepsy, unspecified, not intractable, without status epilepticus Status: Acute (2) AVM (arteriovenous malformation) brain: Code(s): Q28.2 - Arteriovenous malformation of cerebral vessels Status: Acute Assessment and Plan: She had surgery for arteriovenous malformation on the left side in 2009. She is still being followed by neurosurgeons at [facility] and she was seen last in the summer time in 2023. She has a follow-up appointment pending. Plan the patient is under the care of neurosurgeons at [facility] with regards to some corrective measures for the flap on the head. She is on Lamictal 200 mg twice a day. Since he has had several breakthrough seizures yesterday I would suggest increase the dose of Lamictal to 200 mg in the morning and 300 mg at night after reviewing the records. Her boyfriend has witnessed some of the seizures. She has been compliant with the medications. Any indeed intercurrent infection or metabolic problem can also lead to onset of seizures and so far there does not appear to be any clear evidence for that. CT scan of the head shows postoperative changes in the left temporal area with area of encephalomalacia. Consult date: 01/23/25 HPI: Jolanta Yen is a 25 year old female with history of seizure disorder. She was diagnosed to have seizures in 2017 and has been on anticonvulsant ever since that time. She is admitted to the hospital after having had numerous seizures. See has had a surgery for arteriovenous malformation on the left side of the head in 2009 at [facility]. She is currently being followed up by Neurosurgery at [facility] the face some issue with the flap that requires further correction. I do not have access to any of those records. The patient has been compliant with the medications. She denied any recent fall or injury or illness. She also history of psychiatric problems for which she sees a psychiatrist and has been on Lamictal which covers both from the point of view of seizures and mental problems. her urine was positive for cocaine and marijuana. CT scan of brain was negative. She denies any current symptoms Review of Systems 2 Constitutional: Constitutional: Denies chills, Denies fever(s) and Denies weight loss Eyes: Eyes: Denies diplopia and Denies loss of vision ENT: Denies dizziness, Denies hearing loss and Denies tinnitus Cardiovascular: Cardiovascular: Denies chest pain, Denies syncope and Denies dyspnea Respiratory: Respiratory: Denies cough, Denies dyspnea and Denies wheezing Gastrointestinal: Gastrointestinal: Denies abdominal pain, Denies change in bowel habits and Denies vomiting Genitourinary: Genitourinary: Denies urinary incontinence Musculoskeletal: Musculoskeletal: Denies arthralgias and Denies joint swelling Integumentary/Breasts: Skin/Breast: Denies new lesions and Denies rash Neurologic: Reports as per HPI, Denies dizziness, Denies syncope and Denies loss of vision Psychiatric: Psychiatric: Denies anxiety and Denies depression Endocrine: Endocrine: Denies cold intolerance and Denies heat intolerance Hematologic/Lymphatic: Hematologic/Lymphatic: Denies easy bleeding and Denies easy bruising Allergic/Immunologic: Allergic/Immunologic: Denies no additional allergic/immunologic complaints and Denies wheezing PMFSH Past Medical History Medical History (Updated 01/23/25 @ 17:44 by Giancarlo Akins MD) Seizure disorder AVM (arteriovenous malformation) brain Seizure disorder 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 Elevated INR Suicidal overdose Liver failure, acute Family History Family History Sibling Depression Grandparent Cerebrovascular accident Social History Social History Social History: caffeine use Smoking status: Current some day smoker Tobacco type: e-cigarettes/vaping Alcohol intake: current Drinks per week: 30 Substance use: current Substance use type: marijuana Do You Feel Safe in your Home?: No Lack of Transportation: No Lack of Food: Never True Current Housing: I Have Housing Concerned About Future Housing: No Difficulty Paying Gas/Electric Bills: No Difficulty Paying for Meds: No Currently Unemployed: No Education: Associate Degree Difficulty w/ Childcare or Family Care: No Spiritual care concerns: No Meds Home Medications and Allergies Home Medications ?Medication ?Instructions ?Recorded ?Confirmed ?Type clonidine HCl 0.1 mg tablet 0.1 mg PO BID 03/28/24 01/22/25 History escitalopram oxalate 5 mg tablet 5 mg PO DAILY 03/28/24 01/22/25 History lamotrigine 200 mg tablet 200 mg PO BID 03/28/24 01/22/25 History quetiapine 200 mg tablet 200 mg PO HS 03/28/24 01/22/25 History Allergies Allergy/AdvReac Type Severity Reaction Status Date / Time levetiracetam (From [facility]) Allergy Itching,Wilfred Verified 01/22/25 08:17 sea Sulfa (Sulfonamide AdvReac Unknown Verified 01/07/25 07:41 Antibiotics) vancomycin AdvReac Other Verified 01/07/25 07:41 Vital Signs Vital Signs - 24 hr 01/22/25 17:50 01/22/25 20:00 01/22/25 21:16 Temperature 97.8 F Pulse Rate 82 80 Respiratory Rate 14 Blood Pressure 125/71 Pulse Oximetry 99 Oxygen Delivery Room Air 01/23/25 00:00 01/23/25 04:00 01/23/25 05:35 Temperature 97.6 F Pulse Rate 84 84 74 Respiratory Rate 16 Blood Pressure 108/83 Pulse Oximetry 97 Oxygen Delivery 01/23/25 08:00 01/23/25 09:15 01/23/25 10:28 Temperature Pulse Rate 88 Respiratory Rate Blood Pressure Pulse Oximetry 97 Oxygen Delivery Room Air Room Air 01/23/25 12:00 01/23/25 13:33 01/23/25 14:00 Temperature 97.6 F Pulse Rate 78 76 72 Respiratory Rate 20 18 Blood Pressure 126/70 124/72 Pulse Oximetry 98 98 Oxygen Delivery 01/23/25 16:00 Temperature Pulse Rate 84 Respiratory Rate Blood Pressure Pulse Oximetry Oxygen Delivery Exam 2 Narrative: a Bony flap could be felt on the left side of the head with here grown over it. That is where she had the surgery in 2009 for AV malformation. Const: General: no acute distress Orientation/consciousness: oriented to person, oriented to place and oriented to time HENMT: Head: normocephalic and atraumatic Ears: hearing grossly normal bilaterally and external ears normal Face/Nose/Sinus: Normal external nose present Mouth: Yes Normal oral and palatal mucosa present Eyes: General: appearance normal, both eyes and all related structures E yelids: eyelids normal Conjunctivae: conjunctivae normal Pupils: Equal, round and reactive pupils present EOM: No Nystagmus present Neck: Neck: normal visual inspection Resp: Effort & Inspection: normal respiratory effort Skin: General skin exam: normal color Neuro: General: oriented to person, oriented to place and oriented to time Cranial nerves: Yes CN's II-XII intact bilaterally, Yes Equal, round and reactive pupils present, Yes Bilaterally intact EOM present, Yes Nystagmus not present, Yes Normal facial strength present, Yes facial symmetry, Yes Midline tongue present, Yes Symmetric palate elevation present, Yes Normal hearing present, Yes Ability to bilaterally elevate shoulders present and No Nystagmus present Speech: normal speech Gait exam (Neuro): Normal gait present M otor exam (neuro): 5/5 motor strength present throughout, Normal motor muscle tone present throughout and Motor abnormalities not present Sensory Exam: n ormal sensation Deep tendon reflexes (DTR's): Right triceps reflex intensity grade: 2+, Left triceps reflex intensity grade: 2+, Rt Biceps (C5, C6): 2+, Left biceps reflex intensity grade: 2+, Right brachioradialis reflex intensity grade: 2+, Left brachioradialis reflex intensity grade: 2+, Right patellar reflex intensity grade: 2+, Left patellar reflex intensity grade: 2+, Right ankle reflex intensity grade: 2+ and Left ankle reflex intensity grade: 2+ C oordination: [id number] test normal, tandem gait normal and Romberg test negative Extrem: General: normal to inspection Psych: Appearance: grossly normal Mental Status: mental status grossly normal Affect: normal affect Attitude: cooperative Results Labs 01/23/25 04:53 01/22/25 19:49 Labs: Short CBC 01/23/25 Range/Units 04:53 WBC 5.6 (4.5-10.0) K/mm3 Hgb 12.5 (12.0-15.0) g/dL Hct 38.0 (37.0-47.0) % Plt Count 233 (150-375) k/mm3 BMP 01/22/25 19:49 Sodium 136 L Potassium 3.7 Chloride 106 Carbon Dioxide 17 L BUN 5 L D Creatinine 0.92 Glucose 78 Calcium 8.0 L
[2025-01-23] MEDS: lamoTRIgine 100 MG TABLET 300 MG PO (20:53)
[2025-01-24] VITALS: PULSE 80
[2025-01-24 03:18] VITALS: BP 116/62; PULSE 77; RESP 18; TEMP 36.6; O2SAT 97
[2025-01-24 04:00] VITALS: PULSE 80
[2025-01-24 05:16] LABS: Basophils Percent Auto 0.4 % (0.2-1.2); Eosinophils Percent Auto 0.6 % (0-4.4); Hematocrit 39.5 % (37.0-47.0); Hemoglobin 12.8 g/dL (12.0-15.0); Immature Granulocyte Absolute 0.04 K/mm3 (0.00-0.031); Immature Granulocyte Percent A 0.6 % (0-0.5); Lymphocytes Absolute Auto 1.24 K/mm3 (0.9-3.2); Lymphocytes Percent Auto 17.4 % (18.3-44.2); Mean Corpuscular HGB Conc 32.4 g/dl (32-36); Mean Corpuscular Hemoglobin 32.4 pg (26-34); Mean Platelet Volume 9.7 fl (7.4-10.4); Monocytes Absolute Auto 0.4 K/mm3 (0.1-0.6); Monocytes Percent Auto 5.3 % (2.6-8.5); Neutrophils Absolute Auto 5.4 K/mm3 (1.3-6.7); Neutrophils Percent Auto 75.7 % (45.5-73.1); Platelet Count Result 255 k/mm3 (150-375); Red Blood Count 3.95 M/mm3 (4.2-5.4); Red Cell Distribution Width 12.9 % (11.5-14.5); White Blood Count 7.1 K/mm3 (4.5-10.0)
[2025-01-24 05:31] LABS: Alanine Aminotransferase 31 U/L (6-35); Albumin Level 4.8 g/dL (3.5-5.1); Alkaline Phosphatase 56 U/L (38-126); Anion Gap 23 mmol/L (4-12); Aspartate Amino Transferase 62 U/L (14-36); Bilirubin,Total 1.3 mg/dL (0.2-1.3); Blood Urea Nitrogen 3 mg/dL (7-17); Calcium 9.1 mg/dL (8.4-10.2); Carbon Dioxide 10 mmol/L (22-30); Chloride 103 mmol/L (98-107); Estimated CRCL calculation 70 ml/min; Estimated Glomerular Filt Rate > 60; Glucose 74 mg/dL (65-110); Potassium 3.8 mmol/L (3.4-5.0); Sodium 136 mmol/L (137-145)
[2025-01-24 08:00] VITALS: PULSE 84
[2025-01-24] MEDS: cloNIDine HCL 0.1 MG TABLET PO (09:04)
[2025-01-24] MEDS: ESCITALOPRAM OXALATE 5 MG TABLET PO (09:04)
[2025-01-24] MEDS: lamoTRIgine 100 MG TABLET 200 MG PO (09:04)
[2025-01-24 12:00] VITALS: PULSE 93
[2025-01-24 13:25] VITALS: BP 130/70; PULSE 87; RESP 18; TEMP 36.5; O2SAT 98
--- NOTE | 2025-01-24 13:59 | P.PNIM_ITS ---
Progress Note: A&P Assessment and Plan (1) Seizure: Code(s): R56.9 - Unspecified convulsions Status: Acute Assessment and Plan: patient has history of seizures status post AVM and TBI * head CT was showing no acute intracranial findings, postoperative changes in the left temporal lobe with encephalomalacia * chest x-ray was negative for any cardiopulmonary process * Neurology consulted and following * neurology creased Lamictal to 200 mg p.o. Q a.m. and 300 mg p.o. Q HS * continue seizure precautions * urine drug screen was positive for cocaine and cannabinoids * respiratory panel was negative for influenza a and B, RSV, COVID * D-dimer 0.53, lactic acid was 0.7 * patient encouraged to abstain from illicit drug use 01/24 * (2) High anion gap metabolic acidosis: Code(s): E87.29 - Other acidosis Status: Acute Assessment and Plan: * initial bicarb 9, anion gap 27 * likely due to seizure activity however lactic acid level was 0.7 * today bicarb 17, anion gap 13, improved (3) UTI (urinary tract infection): Qualifiers: Hematuria presence: without hematuria Urinary tract infection type: acute cystitis Qualified Code(s): N30.00 - Acute cystitis without hematuria Code(s): N39.0 - Urinary tract infection, site not specified Status: Acute Assessment and Plan: * UA showed turbid urine appearance, 2+ urine protein, 1+ urine ketone, 3+ urine blood, 1+ leukocyte, greater than 100 urine RBC, 21-50 urine WBC, many urine squamous epithelial cells, 4+ urine bacteria, 6-10 urine cast * urine culture was obtained and pending * continue Rocephin for now (4) BASSEM (acute kidney injury): Code(s): N17.9 - Acute kidney failure, unspecified Status: Acute Assessment and Plan: * initial creatinine was 1.27, EGFR 51 * creatinine today 0.92, EGFR greater than 60 * she is now back to baseline-resolved (5) SVT (supraventricular tachycardia): Code(s): I47.10 - Supraventricular tachycardia, unspecified Status: Acute Assessment and Plan: * telemetry reviewed which shown a long run of SVT in the 150s * will continue to monitor with continuous telemetry * heart rate currently in the 80s Subjective Date/time seen: 01/24/25 13:59 Interval history: Interval summary: this is a 25-year-old female with a significant past medical history of seizures, 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 Workup in the hospital included a chest x-ray which was negative. A head CT which was negative for any acute intracranial findings, shown postoperative changes in the left temporal lobe with encephalomalacia. Initial labs shown a white blood cell count of 15.2, D- dimer 0.53, bicarb 9, anion gap 27, creatinine 1.27, EGFR 51, blood sugar 217, AST 48, ALT 46, lactic acid 0.7. A UA was obtained which showed turbid urine appearance, 2+ urine protein, 1+ urine ketone, 3+ urine blood, 1+ leukocytes, greater than 100 urine RBC, 21-50 urine WBC, many urine squamous epithelial cells, 4+ urine bacteria, 6-10 urine cast. Urine drug screen was positive for cocaine and cannabinoids. Respiratory panel was negative for influenza a and B, RSV, COVID. Urine culture was obtained and is pending. EKG showed sinus tachycardia with a rate of 146, QTC 420. Patient was given 200 mg of Lamictal, started on Rocephin and maintenance IV fluids. Subjective: Patient denies any new complaints today. Labs reviewed. Review of Systems Review of Systems: All systems reviewed & are unremarkable except as noted in HPI and below Exam Narrative: General: In no acute distress, well nourished Cardiac: Normal S1 and S2. No murmur, gallops or friction rubs, peripheral pulses intact. Respiratory: Lungs clear to auscultation, no adventitious lung sounds, currently on room air Gastrointestinal: soft, non-distended, non-tender, normoactive bowel sounds. : voiding without difficulty. Neuro: Alert and oriented x4 Objective Data Vital Signs Vital Signs: Vital Signs - 24 hr 01/23/25 14:00 01/23/25 16:00 01/23/25 19:49 Temperature 97.6 F 98.4 F Pulse Rate 72 84 83 Respiratory Rate 18 18 Blood Pressure 124/72 126/85 Pulse Oximetry 98 99 Oxygen Delivery 01/23/25 20:00 01/24/25 00:00 01/24/25 03:18 Temperature 97.9 F Pulse Rate 97 80 77 Respiratory Rate 18 Blood Pressure 116/62 Pulse Oximetry 97 Oxygen Delivery 01/24/25 04:00 01/24/25 08:00 01/24/25 09:15 Temperature Pulse Rate 80 84 Respiratory Rate Blood Pressure Pulse Oximetry Oxygen Delivery Room Air 01/24/25 12:00 01/24/25 13:25 Temperature 97.7 F Pulse Rate 93 87 Respiratory Rate 18 Blood Pressure 130/70 Pulse Oximetry 98 Oxygen Delivery Intake/Output Intake/Output: Intake & Output 01/21/25 01/22/25 01/23/25 01/24/25 23:59 23:59 23:59 23:59 Intake Total 2050 250 440 Output Total 1400 2450 450 Balance 650 -2200 -10 Meds/Results Medications: Active Medications Generic Name Dose Route Start Last Admin Trade Name Freq PRN Reason Stop Dose Admin Acetaminophen 650 mg 01/22/25 15:34 Acetaminophen 325 Mg Tablet PO Q4H PRN Mild Pain (1-3) or Fever Clonidine HCl 0.1 mg 01/23/25 09:00 01/24/25 09:04 Clonidine Hcl 0.1 Mg Tablet PO 0.1 mg BID SADIQ Administration Lidocaine HCl 30 ml/ Al Hydrox 0 ml 01/23/25 15:07 01/23/25 21:01 /Mg Hydrox/Simethicone 30 ml/ PO 5 ml Diphenhydramine HCl 75 mg Q4H PRN Administration tongue pain Escitalopram Oxalate 5 mg 01/23/25 09:00 01/24/25 09:04 Escitalopram Oxalate 5 Mg Tablet PO 5 mg DAILY SADIQ Administration Ceftriaxone Sodium 1 gm in 50 mls @ 100 mls/hr 01/23/25 13:55 01/24/25 09:34 Rocephin 1 Gm/Ns 50 Ml IVPB Infused QAM SADIQ Infusion Lamotrigine 200 mg 01/24/25 09:00 01/24/25 09:04 Lamotrigine 100 Mg Tablet PO 200 mg QAM SADIQ Administration Lamotrigine 300 mg 01/23/25 21:00 01/23/25 20:53 Lamotrigine 100 Mg Tablet PO 300 mg QHS SADIQ Administration Lorazepam 2 mg 01/22/25 18:45 Lorazepam Inj (*Crx) 2 Mg/Ml Vial IV PUSH ONCE PRN Seizure activity >2 mins. Ondansetron HCl 4 mg 01/22/25 15:34 01/23/25 11:39 Ondansetron Inj 4 Mg/2 Ml Vial IV PUSH 4 mg Q4H PRN Administration Nausea Quetiapine Fumarate 200 mg 01/22/25 21:00 01/24/25 03:32 Quetiapine Fumarate 100 Mg Tablet PO Not Given HS [facility] Radiology Results: ITS Impressions Chest X-Ray 01/22/25 09:05 IMPRESSION: No acute cardiopulmonary pathology. Head CT 01/22/25 09:25 IMPRESSION: No acute intracranial findings. Postoperative changes in the left temporal lobe with encephalomalacia. Labs Labs: Laboratory Results - last 24 hr 01/24/25 04:34 WBC 7.1 RBC 3.95 L Hgb 12.8 Hct 39.5 MCV 100.0 MCH 32.4 MCHC 32.4 RDW 12.9 Plt Count 255 MPV 9.7 Immature Gran % (Auto) 0.6 H Neut % (Auto) 75.7 H Lymph % (Auto) 17.4 L Cul[place]on % (Auto) 5.3 Eos % (Auto) 0.6 Baso % (Auto) 0.4 Lymph # (Auto) 1.24 [place] # (Auto) 0.4 Eos # (Auto) 0.0 Baso # (Auto) 0.0 Abs Immat Gran (auto) 0.04 H Absolute Neuts (auto) 5.4 Absolute Nucleated RBC 0.000 Nucleated RBC % 0.0 Sodium 136 L Potassium 3.8 Chloride 103 Carbon Dioxide 10 L Anion Gap 23 H BUN 3 L Creatinine 0.89 Estim Creat Clear Calc 70 Estimated GFR > 60 Glucose 74 Calcium 9.1 Total Bilirubin 1.3 AST 62 H ALT 31 Alkaline Phosphatase 56 Total Protein 8.0 Albumin 4.8 Quality VTE Prophylaxis VTE prophylaxis: mechanical ordered
--- NOTE | 2025-01-24 14:19 | P.DS_ITS ---
DS: Admitting Diagnosis Discharge Date 01/24/25 Admitting Diagnosis Seizure UTI BASSEM DS: Discharge Diagnosis Discharge Diagnosis (1) Seizure: Code(s): R56.9 - Unspecified convulsions Status: Acute (2) High anion gap metabolic acidosis: Code(s): E87.29 - Other acidosis Status: Acute (3) UTI (urinary tract infection): Qualifiers: Hematuria presence: without hematuria Urinary tract infection type: acute cystitis Qualified Code(s): N30.00 - Acute cystitis without hematuria Code(s): N39.0 - Urinary tract infection, site not specified Status: Acute (4) BASSEM (acute kidney injury): Code(s): N17.9 - Acute kidney failure, unspecified Status: Acute (5) SVT (supraventricular tachycardia): Code(s): I47.10 - Supraventricular tachycardia, unspecified Status: Acute DS: Summary Hospital Course Reason for hospitalization: Seizure UTI BASSEM Hospital Course: Final diagnosis: Seizure, UTI, BASSEM Status at Discharge Cognitive/behavioral status at discharge: Alert and oriented x3 Functional status at discharge: independent ambulation Overall status at discharge: patient is progressing back to baseline Time Spent with Patient Time attestation: Total time spent providing and/or coordinating discharge services: Time spent: Greater than 30 minutes Exam Narrative: General: In no acute distress, well nourished Cardiac: Normal S1 and S2. No murmur, gallops or friction rubs, peripheral pulses intact. Respiratory: Lungs clear to auscultation, no adventitious lung sounds, currently on room air Gastrointestinal: soft, non-distended, non-tender, normoactive bowel sounds. : voiding without difficulty. Neuro: Alert and oriented x4 DS: Data Data Completed and Pending Completed studies during hospitalization: head CT Chest X-ray Pending studies at discharge: Urine culture Labs on day of discharge: Labs from last 24 hours 01/24/25 04:34 WBC 7.1 RBC 3.95 L Hgb 12.8 Hct 39.5 MCV 100.0 MCH 32.4 MCHC 32.4 RDW 12.9 Plt Count 255 MPV 9.7 Immature Gran % (Auto) 0.6 H Neut % (Auto) 75.7 H Lymph % (Auto) 17.4 L Greenlee % (Auto) 5.3 Eos % (Auto) 0.6 Baso % (Auto) 0.4 Lymph # (Auto) 1.24 Greenlee # (Auto) 0.4 Eos # (Auto) 0.0 Baso # (Auto) 0.0 Abs Immat Gran (auto) 0.04 H Absolute Neuts (auto) 5.4 Absolute Nucleated RBC 0.000 Nucleated RBC % 0.0 Sodium 136 L Potassium 3.8 Chloride 103 Carbon Dioxide 10 L Anion Gap 23 H BUN 3 L Creatinine 0.89 Estim Creat Clear Calc 70 Estimated GFR > 60 Glucose 74 Calcium 9.1 Total Bilirubin 1.3 AST 62 H ALT 31 Alkaline Phosphatase 56 Total Protein 8.0 Albumin 4.8 Procedures/Treatments: none Discharge Plan Discharge Attending physician on discharge: Patricia Muro Consulting providers: Juan Harris Discharging Clinician: Carlie Morgan Anticipated Discharge Date/Time: 01/24/25 14:12 Patient Disposition: Home, Self-Care Activity: as tolerated Diet: as tolerated and regular Discharge Instructions: * Your Lamictal dose has changed. Take 200mg in the morning and 300 mg at bedtime. * Follow up with Neurology in 2 months * Get EEG in 1 week Patient Instructions: Antibiotic Form Patient Language: Tunisian Stand Alone Forms: General Discharge Information Follow-up/Referrals: Juan Harris MD [Physician] - Call for Appointment (follow up in 2 months) Discharge Medications: New lamotrigine [Lamictal] 100 mg Tablet 300 mg PO QHS Qty: 30 0RF lamotrigine [Lamictal] 100 mg Tablet 200 mg PO QAM Qty: 30 0RF Continued clonidine HCl 0.1 mg tablet 0.1 mg PO BID quetiapine 200 mg tablet 200 mg PO HS escitalopram oxalate 5 mg tablet 5 mg PO DAILY Discontinued lamotrigine 200 mg tablet 200 mg PO BID Other Ambulatory Orders: EEG (Routine) Timeframe: 1 Week Location: Determined by Patient Ordered By: Carlie Morgan Date of admission: 01/22/25 17:10 Primary Care Provider: Kathya Boyer Admitting Provider: Preeti Adame Attending physician on admission: Carlie Morgan Condition: Improved Quality VTE Prophylaxis VTE prophylaxis: mechanical ordered Hospitalist MIPS Heart Failure (Exclusion) Patient has history of Heart Transplant or Left Ventricular Assistive Device?: No IF YES, STOP HERE Heart Failure (Qualifier) Patient has current or prior documentation of LVEF less than or equal to 40%, or mod/servere depressed LVSF?: No IF NO, STOP HERE
[2025-01-25 10:08] LABS: Lamotrigine Lamictal <0.5 mcg/mL (2.5-15.0)
== END 2025-01-24 16:30 | disposition home or self-care (01) | DRG 101 ==
LOC: ANHED 10:20 → ANH2MED 16:04
PROVIDERS: Student in an Organized Health Care Education/Training Program; Admitting Provider Hospitalist; Emergency Provider Student in an Organized Health Care Education/Training Program; Visit Provider Nurse Practitioner Acute Care
DX: G40.909 Epilepsy, unspecified, not intractable, without status epilepticus (principal); N17.9 Acute kidney failure, unspecified; I47.10 Supraventricular tachycardia, unspecified; N39.0 Urinary tract infection, site not specified; E87.21 Acute metabolic acidosis; F17.290 Nicotine dependence, other tobacco product, uncomplicated; D72.829 Elevated white blood cell count, unspecified; R73.9 Hyperglycemia, unspecified; F41.9 Anxiety disorder, unspecified; Z87.798 Personal history of other (corrected) congenital malformations; Z87.820 Personal history of traumatic brain injury; Z98.890 Other specified postprocedural states
CPT/HCPCS: 36415; 70450; 71045; 80048; 80053; 80175; 80307; 81001; 81025; 82010; 83036; 83605; 83690; 83735; 84443; 85025; 85380; 87086; 87637; 93005; 96361; 96365; 96375; 99285; A9270; G0378; J0696; J2405; J7030; J7120

== ENCOUNTER 2025-02-20 16:29 | Emergency (ER) | payer BC, SELFPAY ==
[2025-02-20] VITALS (36 sets, daily range): BP systolic 101–123; BP diastolic 60–89; PULSE 91–123; RESP 12–23; TEMP 36.3–38.9; O2SAT 96–99
--- NOTE | ~2025-02-20 | XR_ITS ---
XR chest 1V portable Ordering provider: Sophie Beasley MD History: 25 years Female with . infection . Comparison: January 22, 2025 FINDINGS: MEDIASTINUM: The cardiac silhouette is not enlarged. LUNGS: No infiltrates, effusions or pneumothorax. OTHER: No free air under the diaphragm. IMPRESSION: No acute cardiopulmonary pathology. Reviewed, dictated and finalized at location A.
--- NOTE | 2025-02-20 17:01 | ECG_ITS ---
Test Date: 2025-02-20 18:01:52 Measurements Intervals [place] Rate: 122 P: 59 LA: 145 QRS: 78 QRSD: 88 T: 55 QT: 284 QTc: 406 Interpretive Statements SINUS TACHYCARDIA BASELINE ARTIFACT- I, II, III, AVR, AVL ABNORMAL ECG Compared to ECG 01/22/2025 08:10:42 HEART RATE HAS ECREASED Electronically Signed On 02-20-2025 20:04:19 CDT by Curtis Cabral D.O.
[2025-02-20 17:12] LABS: Basophils Percent Auto 0.3 % (0.2-1.2); Hemoglobin 12.8 g/dL (12.0-15.0); Immature Granulocyte Absolute 0.05 K/mm3 (0.00-0.031); Immature Granulocyte Percent A 0.4 % (0-0.5); Lymphocytes Absolute Auto 0.25 K/mm3 (0.9-3.2); Lymphocytes Percent Auto 2.2 % (18.3-44.2); Mean Corpuscular HGB Conc 33.7 g/dl (32-36); Mean Corpuscular Hemoglobin 31.7 pg (26-34); Mean Corpuscular Volume 94.1 fl (80-100); Mean Platelet Volume 9.6 fl (7.4-10.4); Monocytes Absolute Auto 0.3 K/mm3 (0.1-0.6); Monocytes Percent Auto 2.7 % (2.6-8.5); Neutrophils Absolute Auto 10.8 K/mm3 (1.3-6.7); Neutrophils Percent Auto 94.4 % (45.5-73.1); Platelet Count Result 302 k/mm3 (150-375); Red Blood Count 4.04 M/mm3 (4.2-5.4); Red Cell Distribution Width 12.7 % (11.5-14.5); White Blood Count 11.4 K/mm3 (4.5-10.0)
[2025-02-20 17:13] LABS: BEDSIDEPREGUCG Negative (Negative)
[2025-02-20 17:21] LABS: Add Urine Microscopic? YES; Appearance Urine Cloudy (Clear); Bacteria Urine 4+ /hpf; Bilirubin Urine Negative (Negative); Blood Urine 2+ (Negative); Color Urine Yellow (Yellow); Glucose Urine UA 1+ mg/dL (Negative); Ketones Urine 3+ mg/dL (Negative); Leukocyte Esterase Ur Negative LEU/UL (Negative); Need Manual Microscopic Reviewed; Nitrate Urine Negative (Negative); Non Pathogenic Casts 0-2; Protein Urine 2+ mg/dL (Negative); RBC Urine 0-2 /hpf (0-2); Specific Grav Ur 1.019 (1.001-1.035); Squamous Epithelial Cell Urine Many /hpf (Few); Urobilinogen Urine 0.2 mg/dL (<2.0); pH Urine 5.5 (5.0-9.0)
[2025-02-20 17:30] LABS: Alanine Aminotransferase 37 U/L (6-35); Albumin Level 4.8 g/dL (3.5-5.1); Alkaline Phosphatase 69 U/L (38-126); Anion Gap 18 mmol/L (4-12); Aspartate Amino Transferase 38 U/L (14-36); Bilirubin,Total 1.1 mg/dL (0.2-1.3); Blood Urea Nitrogen 8 mg/dL (7-17); Calcium 8.5 mg/dL (8.4-10.2); Carbon Dioxide 13 mmol/L (22-30); Chloride 102 mmol/L (98-107); Estimated CRCL calculation 70 ml/min; Estimated Glomerular Filt Rate > 60; Glucose 210 mg/dL (65-110); Potassium 3.9 mmol/L (3.4-5.0); Sodium 133 mmol/L (137-145)
[2025-02-20 17:49] LABS: Influenza A QL RT-PCR Negative (Negative); Influenza B QL RT-PCR Negative (Negative); RSV RNA, RT-PCR Negative (Negative); SARS-CoV-2 RNA PCR Negative (Negative)
[2025-02-20] MEDS: ACETAMINOPHEN 500 MG TABLET 1000 MG PO (18:09)
[2025-02-20] MEDS: IBUPROFEN 400 MG TABLET 800 MG PO (18:10)
[2025-02-20] MEDS: SODIUM CHLORIDE 0.9% IV 1,000 ML 999 ML (18:47)
--- NOTE | 2025-02-20 19:00 | PC.NURSE ---
Pt no longer has lockhart in place when this RN assumed care.
--- NOTE | 2025-02-20 19:03 | PC.NURSE ---
alert at this time requesting cath be removed
--- OUTSIDE RECORDS SUMMARY | 2025-02-20 19:31 | XMS_ITS | Clinical Summary ---
Author Organization [facility] Address [facility] [place] [address] Care Team Providers Care Surgery Specialist Name Role Phone Sabrina Boyer PA-C Primary Care Provider [phone] Allergies Active Allergy Reactions Criticality Noted Date [...] C 01/13/2018 COVID-19 Vaccine ( season) 2024 DTaP, Tdap and Td Vaccines (8 - Td or Tdap) 02/07/2033 02/07/2023, 08/03/2012, 06/20/2005, Additional history exists Hepatitis B Vaccines Completed 01/26/2001, 2000, 2000 Pneumococcal Vaccine: Pediatrics (0 to 5 Years) and At-Risk Patients (6 to 49 Years) Aged Out 04/27/2001, 01/26/2001 No longer eligibl e based on patient's age to complete this topic Meningococcal Vaccine Completed 07/07/2017 HPV Vaccines Completed 02/07/2023, 06/07, 04/25/2018 Meningococcal B Vaccine Aged Out No l onger eligible based on patient's age to complete this topic RSV Immunizations Under 20 Months Aged Out No longer eligible based on patient's age to complete this topic Insurance [facility] Care Teams Surgery Specialist Relationship Specialty Start Date End Date Sabrina Boyer PA-C [address] [place] [address] PCP - General PHYSICIAN [employer] DIRECTOR 04/20/23
--- OUTSIDE RECORDS SUMMARY | 2025-02-20 19:31 | XMS_ITS | Referral Summary ---
Author Organization [facility] Main [facility] s Address [address] [place] [address] Care Team Providers Care Peoplesoft Administrator Name Role Phone Sabrina Boyer Primary Care Provider [phone] Allergies Active Allergy Reactions Criticality Noted Date [...] to scheduled appointments--LVM for Dr. 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 Local Combination Truck Driver Hemant Ronquillo Comment: LIDYA BURGOS(ASCP) CT Screening location: [facility] Administration [place] [address] Review mall plant caretaker Rhea Stone Comment: LIDYA SOLORIO(ASCP) CT screening location: [place] [address] Administration [place] [address] Comment Rhea Stone Comment: EXPLANATORY NOTE: The [...] MCCARTHY LAB CYTOLOGY ORDERABLES F inal Result [facility] Rhea EveBen Stone [address] Administration [place] [id number] * Hepatitis C antibody (09/02/2022 6:19 PM [...] - GENERAL ORDER MINERVA Final Result [address]NE [address] [facility] Department [place] [address] from Last 3 Months or Most Recently Relevant to Health Maintenance [place] [address] [place] Sub[place] Plan / Payer ( fective 2020-Present) Name:Mikki Batista Relation to Subscriber:Self Name:Mikki Batista Payer ID:[id number] (NAIC) Type:BC OTHER Address: [place] [id number] [employer] OPEN ACCESS Advance Directives For more information, please contact: [phone] Documents on File Type Date Recorded Patient System Analyst Expl anation ADVANCE DIRECTIVE 11/30/2020 2:14 PM [email or web address] .[email or web address] * Full Code (Latest Code Status on File) Date Activated Date Inactivated Comments 06/25/2022 8:58 PM 06/27/2022 9:39 PM * Full Code Date Activated Date Inactivated Comments 02/23/2021 7:56 AM 02/26/2021 9:28 PM Care Teams Peoplesoft Administrator Relationship Specialty Start Date End Date Sabrina Boyer PA [address] [place] [address] PCP - General Family Medicine 06/06/22
--- OUTSIDE RECORDS SUMMARY | 2025-02-20 19:31 | XMS_ITS ---
Author Organization [facility] Address [address] [facility] [address] [place] [address] Care Team Providers Care Layout Designer Name Role Phone Bea Sanz Unavailable [phone] Encounters Encounter Location Date Provider Diagnosis [facility] Fed Playbook [facility] [address] [facility] [address] [place] [address] 05/21/2024 Bea Sanz Plan Of Treatment No Information Progress Notes * JAYDA BATISTADOB:2000 (25 yo F)Acc No.[id number]:05/21/2024 Patient: JAYDA MASSEY Provider: CHRISTINA SNYDER :2000 A ge:24 Y S ex:Female Date:05/21/2024 Address:[address] [place], [place] [id number] Subjective: * Chief Complaints: * * Medical History: Objective: * Vitals: Assessment: Plan: * Treatment: * Billing Information: * Visit Code: * Procedure Codes: * Electronic signature of CHRISTINA Hart on 02/20/2025 at 07:31 PM CDT Sign off status: Pending * Provider: CHRISTINA SNYDER Date: 0 05/21/2024 Generated for Mackenzie ng/Facrissg/eTransmitting on: 0 02/20/2025 07:31 PM CDT
--- OUTSIDE RECORDS SUMMARY | 2025-02-20 19:31 | XMS_ITS | Clinical Summary ---
Author Organization [facility] Main [facility] s Address [address] [place] [address] Care Team Providers Care Medical Administrative Name Role Phone Sabrina Boyer Primary Care Provider [phone] Allergies Active Allergy Reactions Criticality Noted Date [...] to scheduled appointments--LVM for Dr. 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 COMMENTS Sandy Stone Comment: This Pap test has been evaluated with computer assisted technology. Senior Drupal Developer Hemant Ronquillo Comment: LORETTA CT(ASCP) CT Screening location: [facility] Administration [place] [address] Review pharmacy operations specialist Sandy Stone Comment: OSMIN CT(ASCP) CT screening location: [place] [address] Administration [place] [address] Comment Sandy Stone Comment: EXPLANATORY NOTE: The [...] CYTOLOGY ORDERABLES F inal Result SANDY Sandy VIPorbit SoftwareBen Stone [address] Administration [place] [id number] * Hepatitis C antibody (09/02/2022 6:19 PM [...] - GENERAL ORDER MINERVA Final Result DIEUDONNE [address] [facility] Department [place] [address] from Last 3 Months or Most Recently Relevant to Health Maintenance Insurance [employer] [place] [employer] [place] [address] [employer] [place] [employer] [place] [employer] OPEN ACCESS Advance Directives For more information, please contact: [phone] Documents on File Type Date Recorded Patient Medical Device Engineer Expl anation ADVANCE DIRECTIVE 11/30/2020 2:14 PM [email or web address] .[email or web address] * Full Code (Latest Code Status on File) Date Activated Date Inactivated Comments 06/25/2022 8:58 PM 06/27/2022 9:39 PM * Full Code Date Activated Date Inactivated Comments 02/23/2021 7:56 AM 02/26/2021 9:28 PM Care Teams Medical Administrative Relationship Specialty Start Date End Date Sabrina Boyer PA [address] [place] [address] PCP - General Family Medicine 06/06/22
--- OUTSIDE RECORDS SUMMARY | 2025-02-20 19:31 | XMS_ITS | Patient Health Record ---
Author Organization [facility] As [employer] Address [address] [facility] [address] [place] [address] Care Team Providers Care Reed Repairer Name Role Phone Bea Sanz Unavailable [phone] Migration, Provider Unavailable Unavailable Reason For Referral No Information Medications Medication SIG (Take, Route, Frequency, Duration) Notes Start Date End Date Status KYLEENA 17.5 MCG/24 HR (UP TO 5 YEARS) 19.5 MG INTRAUTERINE DEVICE *Reorder from [facility] for eRx and Interaction Alerts* 03/18/2024 Active LACOSAMIDE 100 MG TABLET [facility]* 03/18/2024 Active valACYclovir HCl 1 GM Oral 03/18/2024 Active Escitalopram Oxalate 5 MG Oral 03/18/2024 Active lamoTRIgine 150 MG Oral 03/18/2024 Active QUEtiapine Fumarate 25 MG Oral 03/18/2024 Active QUEtiapine Fumarate 200 MG Oral for 30 days 03/18/2024 Active Ondansetron 4 MG Oral 03/18/2024 Ac tive Betamethasone Dipropionate 0.05 % External 03/18/2024 Active Famotidine 20 MG Oral 03/18/2024 Ac tive cloNIDine HCl 0.1 MG Oral 03/18/2024 Active lamoTRIgine 200 MG Oral 03/18/2024 Active traMADol HCl 50 MG Oral 03/18/2024 Active Immunizations Vaccine Route Administration Date Status Comme nts DTaP Unknown 2000 Administered DTaP Unknown 2000 Administered DTaP Unknown 2000 Administered DTaP Unknown 04/27/2001 Administered DTaP Unknown 06/20/2005 Administered Hib-Hep B Unknown 2000 Administered Hib-Hep B Unknown 2000 Administered Hib-Hep B Unknown 01/26/2001 Administered HPV9 (human papillomavirus), nonavalent Unknown 04/25/2018 Administered HPV9 (human papillomavirus), nonavalent Unknown 06/26/2018 Administered IPV Unknown 2000 Administered IPV Unknown 2000 Administered IPV Unknown 2000 Administered IPV Unknown 06/20/2005 Administered Meningococcal MCV4P Unknown 07/07/2017 Administered MMR Unknown 01/26/2001 Administered MMR Unknown 06/20/2005 Administered Pneumococcal conjugate PCV 7 Unknown 01/26/2001 Adminis tered Pneumococcal conjugate PCV 7 Unknown 04/27/2001 Adminis tered Tdap Unknown 08/03/2012 Administered Vital Signs Heart Rate 80 /min 03/18/2024 Height-cm 165.10 cm 03/18/2024 Blood pressure diastolic 77 mm Hg 03/18/2024 Weight-kg 54.39 kg 03/18/2024 Height 65.00 in 03/18/2024 Blood pressure systolic 116 mm Hg 03/18/2024 Weight 119.90 lbs 03/18/2024 BMI 20 kg/m2 03/18/2024 Encounters Encounter Location Date Provider Diagnosis [facility] [place] [address] [facility] [address] [address] 05/21/2024 Bea Sanz [facility] [employer] [address] 03/18/2024 Bea Sanz Major depressive disorder, recurrent, unspecified F33.9 ; Attention and concentration deficit R41.840 ; Panic disorder [episodic paroxysmal anxiety] without agoraphobia F41.0 ; Generalized anxiety disorder F41.1 and Epilepsy, unspecified, not intractable, without status epilepticus G40.909 [facility] [place] [address] [facility] [address] [facility] [address] [place] [address] 03/23/2024 Provider Migration [facility] [place] [address] [facility] [address] [facility] [address] [place] [address] 03/24/2024 Provider Migration [facility] [place] [address] [facility] [address] [address] 08/20/2024 Bea Sanz Assessments Encounter Date Diagnosis (ICD Code) Assessment Notes Treatment Notes Treatment Clinical Notes Section Notes 03/18/2024 Major depressive disorder, recurrent, unspecified (ICD-10 - F33.9) 03/18/2024 Generalized anxiety disorder (ICD-10 - F41.1) 03/18/2024 Epilepsy, unspecified, not intractable, without status epilepticus (ICD-10 - G40.909) 03/18/2024 Attention and concentration deficit (ICD-10 - R41.840) 03/18/2024 Panic disorder [episodic paroxysmal anxiety] without agoraphobia (ICD-10 - F41.0) Plan Of Treatment No Information Insurance Providers Payer Name Payer Address Payer Phone Subscriber Number Group Number Insured Name Patient Relationship to Insured Coverage Start Date Coverage End Date [facility] [address] [place] [address] [id number] JAYDA BATISTA Self - patient is the insured Medical (General) History Surgical History Surgery Date(Month/Year) Reconstructive surgery 01/13/2011 Cosmetic surgery 02/04/2017 Neurosurgery 05/16/2010 Any surgical history 06/28/2012
--- NOTE | 2025-02-20 20:07 | ED_ITS ---
HPI - General Adult General Chief complaint: Seizure Stated complaint: seizure Time Seen by Provider: 02/20/25 19:17 History of Present Illness HPI narrative: Patient is a 25-year-old female who presents the emergency department this evening status post recurrent seizures at home today. Patient's boyfriend is present with her at bedside and states that he did witness the seizures. States that day where generalized tonic clonic but admits that the patient did return to her baseline after every seizure. The patient has been having symptoms of urinary tract infection and has been running low-grade fevers at home. She also states that she has been vomiting all day yesterday. Denies falls or any head trauma. Patient is currently alert and oriented to person, place, time and situation and is answering all my questions appropriately. Patient did arrive to the ED via EMS and was administered 5 mg of IM Versed prior to arrival. Patient is currently denying any symptoms. Related Data Home Medications ?Medication ?Instructions ?Recorded ?Confirmed ?Last Taken ?Type clonidine HCl 0.1 mg tablet 0.1 mg PO BID 03/28/24 01/22/25 Unknown History escitalopram oxalate 5 mg tablet 5 mg PO DAILY 03/28/24 01/22/25 Unknown History quetiapine 200 mg tablet 200 mg PO HS 03/28/24 01/22/25 Unknown History Allergies Allergy/AdvReac Type Severity Reaction Status Date / Time levetiracetam (From [facility]) Allergy Itching,Wilfred Verified 02/20/25 16:37 sea Sulfa (Sulfonamide AdvReac Unknown Verified 02/20/25 16:37 Antibiotics) vancomycin AdvReac Other Verified 02/20/25 16:37 Review of Systems 2 Review of Systems: All systems are reviewed and are negative unless stated otherwise in the HPI. 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 Elevated INR Suicidal overdose Liver failure, acute Family History Family History Sibling Depression Grandparent Cerebrovascular accident Social History Social History Social History: caffeine use Smoking status: Never smoker Tobacco type: e-cigarettes/vaping Alcohol intake: current Drinks per week: 30 Substance use: current Substance use type: marijuana Do You Feel Safe in your Home?: No Lack of Transportation: No Lack of Food: Never True Current Housing: I Have Housing Concerned About Future Housing: No Difficulty Paying Gas/Electric Bills: No Difficulty Paying for Meds: No Currently Unemployed: No Education: Associate Degree Difficulty w/ Childcare or Family Care: No Spiritual care concerns: No Exam 2 Narrative: General: Alert, awake, afebrile, in no acute distress. HEENT: PERRL, no rhinorrhea, no post nasal drip, oropharynx clear. Neck: Trachea midline, no JVD, no lymphadenopathy. Cardiovascular: Regular rate and rhythm, no murmurs, rubs or gallops, no peripheral edema. Respiratory: Clear to auscultation bilaterally, no tachypnea, no wheezing, no rhonchi, no rubs, no respiratory distress. Abdomen: Soft, nontender, nondistended, no rebound, no guarding, no peritoneal signs. Musculoskeletal: No joint swelling or deformity, normal muscle tone. Skin: No rashes or petechia, no signs of infection. Psychiatric: Alert and oriented, normal behavior and judgment for situation. Neurological: Alert and oriented to person, place, and time. Follows all commands. No focal deficits, speech is clear and fluent. Course Vital Signs Vital signs: Vital Signs Temperature 97.4 F L 02/20/25 16:25 Pulse Rate 118 H 02/20/25 16:25 Respiratory Rate 20 02/20/25 16:25 Blood Pressure 101/71 02/20/25 16:25 Pulse Oximetry 96 02/20/25 16:25 Temperature 99 F 02/20/25 23:14 Pulse Rate 110 H 02/20/25 23:14 Respiratory Rate 20 02/20/25 23:14 Blood Pressure 120/74 02/20/25 23:14 Pulse Oximetry 97 02/20/25 23:14 Oxygen Delivery Room Air 02/20/25 17:04 Medical Decision Making [facility] Narrative Medical decision making narrative: The patient was evaluated by myself in the emergency department. History is obtained from patient who is an independent historian and physical exam was performed. External medical records were reviewed at this time. IV was established and pertinent tests were ordered. Patient was administered 2 L IV fluid bolus with normal saline. EKG was obtained which revealed sinus tachycardia rate of 122 beats per minute, otherwise no evidence of acute ischemia. EKG was independently interpreted by me and is currently pending official cardiology read. Laboratory results obtained revealing anion gap of 18, CPK 234, otherwise unremarkable. Patient's urinalysis revealed 3+ ketones, 11-20 wbc's, many squamous epithelial cells and 4+ bacteria. Patient was administered 1 g of IV Rocephin at this time. Anion gap metabolic acidosis who likely secondary to starvation ketosis. UDS positive for cannabinoids. Patient was informed this is likely because her intractable nausea vomiting and instructed to stop smoking marijuana as this could be precipitate her dehydration and lower her seizure threshold. Imaging studies obtained included CXR which was independently interpreted by me revealing no acute cardiopulmonary process, which is pending final radiology interpretation. Differential diagnosis considerations include breakthrough seizure secondary to infectious process such as pneumonia/UTI, dehydration, electrolyte derangements. Comorbidities impacting this visit include history of epilepsy. Patient was informed that her breakthrough seizures are likely due to her urinary tract infection/dehydration and patient/boyfriend are in agreement. I have evaluated and discussed social determinants of health with the patient that could potentially impact subsequent diagnosis and treatment plans. On repeat assessment of the patient, reevaluation revealed that the patient is doing well and is in no acute distress. Patient symptoms have improved since she arrived to our emergency department. Repeat vital signs were all reviewed and noted to be stable. Differential diagnosis and treatment plan were discussed with the patient at bedside. At this time, I did discuss admission versus transfer for neurological evaluation, however, patient declined stating that she wants to be discharged and to follow-up as an outpatient. She states that she was recently seen here and got evaluated by Neurology who increased her seizure medication dose. Patient agrees with discussion and after shared medical decision making agrees with discharge. All questions were answered to the patient's satisfaction. Patient will follow up with Neurology in 3-5 days. Script for cephalexin and Zofran were sent to patient's pharmacy to take as prescribed. Patient was provided with strict return precautions and instructed to return to the emergency department if any new or worsening symptoms develop. The patient was discharged in stable condition. Vital Signs Vital Signs: Vital Signs Temperature 97.4 F L 02/20/25 16:25 Pulse Rate 118 H 02/20/25 16:25 Respiratory Rate 20 04/17/25 16:25 Blood Pressure 101/71 02/20/25 16:25 Pulse Oximetry 96 02/20/25 16:25 Temperature 99 F 02/20/25 23:14 Pulse Rate 110 H 02/20/25 23:14 Respiratory Rate 20 02/20/25 23:14 Blood Pressure 120/74 02/20/25 23:14 Pulse Oximetry 97 02/20/25 23:14 Oxygen Delivery Room Air 02/20/25 17:04 Lab Data 02/20/25 17:04 02/20/25 17:04 Labs: Lab Results 02/20/25 02/20/25 02/20/25 Range/Units 17:04 17:05 20:12 WBC 11.4 H (4.5-10.0) K/mm3 RBC 4.04 L (4.2-5.4) M/mm3 Hgb 12.8 (12.0-15.0) g/dL Hct 38.0 (37.0-47.0) % MCV 94.1 (80-100) fl MCH 31.7 (26-34) pg MCHC 33.7 (32-36) g/dl RDW 12.7 (11.5-14.5) % Plt Count 302 (150-375) k/mm3 MPV 9.6 (7.4-10.4) fl Immature Gran % (Auto) 0.4 (0-0.5) % Neut % (Auto) 94.4 H (45.5-73.1) % Lymph % (Auto) 2.2 L (18.3-44.2) % [place] % (Auto) 2.7 (2.6-8.5) % Eos % (Auto) 0.0 (0-4.4) % Baso % (Auto) 0.3 (0.2-1.2) % Lymph # (Auto) 0.25 L (0.9-3.2) K/mm3 [place] # (Auto) 0.3 (0.1-0.6) K/mm3 Eos # (Auto) 0.0 (0-0.3) K/mm3 Baso # (Auto) 0.0 (0.0-0.1) K/mm3 Abs Immat Gran (auto) 0.05 H (0.00-0.031) K/mm3 Absolute Neuts (auto) 10.8 H (1.3-6.7) K/mm3 Absolute Nucleated RBC 0.000 (0.0-0.012) K/mm3 Nucleated RBC % 0.0 (0.0-0.2) % Sodium 133 L (137-145) mmol/L Potassium 3.9 (3.4-5.0) mmol/L Chloride 102 (98-107) mmol/L Carbon Dioxide 13 L (22-30) mmol/L Anion Gap 18 H (4-12) mmol/L BUN 8 D (7-17) mg/dL Creatinine 0.98 (0.7-1.0) mg/dL Estim Creat Clear Calc 70 ml/min Estimated GFR > 60 (59 - ) Glucose 210 H (65-110) mg/dL Lactic Acid 0.6 L (0.7-2.0) mmol/L Calcium 8.5 (8.4-10.2) mg/dL Total Bilirubin 1.1 (0.2-1.3) mg/dL AST 38 H (14-36) U/L ALT 37 H (6-35) U/L Alkaline Phosphatase 69 (38-126) U/L Total Creatine Kinase 234 H (30-135) U/L Total Protein 8.0 (6.3-8.2) g/dL Albumin 4.8 (3.5-5.1) g/dL Urine Color Yellow (Yellow) Urine Appearance Cloudy H (Clear) Urine pH 5.5 (5.0-9.0) Ur Specific [place] 1.019 (1.001-1.035) Urine Protein 2+ H (Negative) mg/dL Urine Glucose (UA) 1+ H (Negative) mg/dL Urine Ketones 3+ H (Negative) mg/dL Ur Blood (Man) 2+ H (Negative) Urine Nitrate Negative (Negative) Urine Bilirubin Negative (Negative) Urine Urobilinogen 0.2 (<2.0) mg/dL Add Ur Microanalysis Reviewed Leukocyte Esterase Rfl Negative (Negative) PAVITHRA/UL Urine RBC 0-2 (0-2) /hpf Urine WBC 11-20 H (0-3) /hpf Ur Squamous Epith Cells Many H (Few) /hpf Urine Bacteria 4+ H /hpf Urine Casts 0-2 POC Urine HCG, Qual Negative (Negative) Urine Opiates Screen Negative (Negative) Urine Methadone Screen Negative (Negative) Ur Barbiturates Screen Negative (Negative) Ur Phencyclidine Scrn Negative (Negative) Ur Amphetamine Screen Negative (Negative) U Benzodiazepines Scrn Positive A (Negative) Urine Cocaine Screen Negative (Negative) U Cannabinoids Screen Positive A (Negative) Influenza A (RT-PCR) Negative (Negative) Influenza B (RT-PCR) Negative (Negative) RSV (RT-PCR) Negative (Negative) SARS-CoV-2 RNA (RT-PCR) Negative (Negative) Discharge Plan Discharge Clinical Impression: Seizure disorder, Breakthrough seizure, UTI (urinary tract infection), Dehydration, Cyclical vomiting syndrome Patient Disposition: Home Condition: Improved Instructions: Antibiotic Form, Dehydration (ED), Urinary Tract Infection in Women (DC), Epilepsy (ED) Additional Instructions: Please follow-up with your neurologist within the next 3-5 days. Return to the emergency department if any new or worsening symptoms develop. Take the prescribed antibiotic as instructed for urinary tract infection. You are also prescribed nausea medication your instructed to take at home as needed for nausea/vomiting. You will need to stay on top of the femur this and the antibiotics for the UTI as this will decrease your seizure threshold and increase the likelihood of developing recurrent seizures. You need to return to the emergency department immediately if you develop any recurrent seizures. Patient Language: Stateless Prescriptions: New cephalexin 500 mg capsule 500 mg PO Q12H 10 Days Qty: 20 0RF ondansetron 4 mg tablet,disintegrating 4 mg PO Q8H PRN (Reason: nausea and vomiting) Qty: 10 0RF No Action lamotrigine [Lamictal] 100 mg Tablet 200 mg PO QAM Qty: 30 0RF lamotrigine [Lamictal] 100 mg Tablet 300 mg PO QHS Qty: 30 0RF clonidine HCl 0.1 mg tablet 0.1 mg PO BID quetiapine 200 mg tablet 200 mg PO HS escitalopram oxalate 5 mg tablet 5 mg PO DAILY Follow-up/Referrals: Kathya Boyer, [facility] [Primary Care Provider] - Giancarlo Akins MD [Physician] - 3 Days Time of Disposition: 20:46
[2025-02-20] MEDS: SODIUM CHLORIDE 0.9% IV 1,000 ML 999 ML IV CONT ×2 (20:22→20:23)
[2025-02-20] MEDS: lamoTRIgine 100 MG TABLET 300 MG PO (20:26)
[2025-02-20 20:29] LABS: Creatine Kinase 234 U/L (30-135); Lactic Acid Reflex 0.6 mmol/L (0.7-2.0)
[2025-02-20 21:07] LABS: Amphetamine Screen Urine Negative (Negative); Barbiturate Screen Urine Negative (Negative); Benzodiazepines Screen Urine Positive (Negative); Cannabinoid Screen Urine Positive (Negative); Cocaine Screen Urine Negative (Negative); Methadone Screen Urine Negative (Negative); Opiate Screen Urine Negative (Negative); Phencyclidine Screen Urine Negative (Negative)
--- NOTE | 2025-02-20 21:18 | PC.NURSE ---
Rechecked temperature and result of 100.0 F. Pt had 3 blankets on. This RN removed blankets and educated on importance of keeping them off. Will recheck.
[2025-02-20] MEDS: ACETAMINOPHEN 325 MG TABLET 650 MG PO (22:09)
[2025-02-20] MEDS: METOCLOPRAMIDE HCL INJ 10 MG/2 ML VIAL IV PUSH (22:59)
== END 2025-02-20 22:49 | disposition home or self-care (01) ==
PROVIDERS: Emergency Medicine; Emergency Provider Emergency Medicine
DX: G40.909 Epilepsy, unspecified, not intractable, without status epilepticus (principal); Q28.2 Arteriovenous malformation of cerebral vessels; N39.0 Urinary tract infection, site not specified; E86.0 Dehydration; R11.15 Cyclical vomiting syndrome unrelated to migraine; Z20.822 Contact with and (suspected) exposure to COVID-19
CPT/HCPCS: 36415; 71045; 80053; 80307; 81001; 81025; 82550; 83605; 85025; 87637; 93005; 96365; 96375; 99284; A9270; J0696; J2765; J7030

== ENCOUNTER 2025-07-06 08:34 | Emergency (ER) | payer BC, SELFPAY ==
--- OUTSIDE RECORDS SUMMARY | 2024-05-21 09:00 | XMS_ITS ---
Author Organization [facility] [employer] [facility] Address [address] [facility] [address] [place] [address] Care Team Providers Care Clinic Specialist Name Role Phone Bea Sanz Unavailable [phone] Encounters Encounter Location Date Provider Diagnosis [facility] [employer] [facility] [address] [facility] [address] [place] [address] 05/21/2024 Bea Sanz Plan Of Treatment No Information Progress Notes * JAYDA BATISTADOB:2000 (25 yo F)Acc No.[id number]:05/21/2024 Patient: JAYDA MASSEY Provider: CHRISTINA SNYDER :2000 A ge:24 Y S ex:Female Date:05/21/2024 Address:[address] [id number] Billing Information: * Procedure Codes: * Electronic signature of CHRISTINA Hart on 07/06/2025 at 09:44 AM CDT Sign off status: Pending * Provider: CHRISTINA SNYDER Date: 0 05/21/2024 Generated for Mackenzie ventura/Nubai/eTransmitting on: 07/06/2025 09:44 AM CDT
--- NOTE | ~2025-07-06 | CT_ITS ---
EXAMINATION: CT brain wo con DATE: 07/06/2025 09:12 INDICATION: Seizure TECHNIQUE: Computed tomography (CT) of the head was performed without intravenous contrast. Sagittal and coronal reconstructions were performed. The mA was adjusted according to patient size. Iterative reconstruction technique was employed. The dose-length product was 605.33 mGy-cm. COMPARISON: head CT dated 01/22/2025 FINDINGS: Large left frontotemporal craniectomy with calvarial prosthesis fixed with plate and screws. Moderate-sized region of encephalomalacia in the anterior left temporal lobe. No acute intracranial hemorrhage, acute infarction or abnormal extra axial fluid collection. Ventricles are normal and symmetric. No mass/mass effect. The orbits, paranasal sinuses and mastoid air cells are normal. IMPRESSION: 1. Stable appearance of a moderate-sized region of encephalomalacia in the anterior left temporal lobe most likely related to prior surgery with overlying left craniectomy although differential would include sequela of old infarct. Correlate with surgical history. 2. No acute intracranial process. Reviewed, dictated and finalized at location A. IMPRESSION: 1. Stable appearance of a moderate-sized region of encephalomalacia in the ante rior left temporal lobe most likely related to prior surgery with overlying lef t craniectomy although differential would include sequela of old infarct. Corre late with surgical history. 2. No acute intracranial process.
[2025-07-06 08:32] VITALS: BP 122/99; PULSE 99; RESP 15; TEMP 36.6; O2SAT 98
[2025-07-06 08:43] VITALS: O2SAT 98
--- NOTE | 2025-07-06 08:45 | ECG_ITS ---
Test Date: 2025-07-06 08:56:31 Measurements Intervals [place] Rate: 110 P: 58 [place]: 147 QRS: 78 QRSD: 96 T: 24 QT: 319 QTc: 433 Interpretive Statements SINUS TACHYCARDIA BASELINE ARTIFACT- I, II, III, AVR, AVL, AVF, V1-V6 ABNORMAL ECG Compared to ECG 02/20/2025 18:01:52 HAERT RATE HAS DECREASED Electronically Signed On 07-06-2025 16:00:50 CDT by Curtis Cabral D.O.
[2025-07-06] MEDS: METOCLOPRAMIDE HCL INJ 10 MG/2 ML VIAL IV PUSH (08:50)
[2025-07-06] MEDS: LACTATED RINGERS 1,000 ML 999 ML IV CONT (08:59)
--- NOTE | 2025-07-06 09:02 | ED.GENADULT ---
HPI - General Adult General Chief complaint: Seizure Stated complaint: seizure Time Seen by Provider: 07/06/25 08:41 History of Present Illness HPI narrative: 25-year-old female presents to the emergency department for evaluation for seizure. Patient does have a underlying seizure history secondary to a AV malformation back in 2009. Patient does take Vimpat but states she had nausea and vomiting yesterday was able to keep her medication down yesterday. Patient does have prior follow-up with our neurology in March and patient was started on Vimpat at that time. Patient states that she follows up with Neurology at [facility]. patient is unsure of who her neurologist is or when the last time she saw them. Related Data Home Medications ?Medication ?Instructions ?Recorded ?Confirmed ?Last Taken ?Type clonidine HCl 0.1 mg tablet 0.1 mg PO BID 03/28/24 01/22/25 Unknown History escitalopram oxalate 5 mg tablet 5 mg PO DAILY 03/28/24 01/22/25 Unknown History quetiapine 200 mg tablet 200 mg PO HS 03/28/24 01/22/25 Unknown History Allergies Allergy/AdvReac Type Severity Reaction Status Date / Time levetiracetam (From [facility]) Allergy Itching,Wilfred Verified 07/06/25 08:43 sea Sulfa (Sulfonamide AdvReac Unknown Verified 07/06/25 08:43 Antibiotics) vancomycin AdvReac Other Verified 07/06/25 08:43 Review of Systems Review of Systems: 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 Elevated INR Suicidal overdose Liver failure, acute Family History Family History Sibling Depression Grandparent Cerebrovascular accident Social History Social History (Updated 03/11/25 @ 10:43 by VERONICA Mendoza) Social History: caffeine use Smoking status: Never smoker Tobacco type: e-cigarettes/vaping Alcohol intake: current Alcohol use details: Varies Substance use: current Substance use type: marijuana Do You Feel Safe in your Home?: No Lack of Transportation: No Lack of Food: Never True Current Housing: I Have Housing Concerned About Future Housing: No Difficulty Paying Gas/Electric Bills: No Difficulty Paying for Meds: No Currently Unemployed: No Education: Associate Degree Difficulty w/ Childcare or Family Care: No Spiritual care concerns: No Exam Narrative: APPEARANCE: Well appearing, no pain, no distress, well-nourished. HEAD: normocephalic, atraumatic. EYES: PERRLA/EOMI, conjunctivae clear. NOSE: Normal no drainage EARS:TMS clear with good light reflex. THROAT: Pharynx clear, no exudate. NECK: Supple. No adenopathy, no masses. RESPIRATORY: Airway patent, respirations nonlabored. Clear to auscultation bilaterally, no rales, rhonchi, wheezing. CARDIOVASCULAR: Regular rate and rhythm without murmurs rubs or gallops. ABDOMINAL: Soft, nontender, nondistended, normal bowel sounds MUSCULOSKELETAL: Moves all extremities. Strength/ROM intact, No edema, No calf tenderness. NEURO: Alert. Cranial nerves II through XII intact. Good gait. Good coordination SKIN: Warm, dry. Normal Color Course Vital Signs Vital signs: Vital Signs Temperature 98 F 07/06/25 08:32 Pulse Rate 99 07/06/25 08:32 Respiratory Rate 15 07/06/25 08:32 Blood Pressure 122/99 H 07/06/25 08:32 Pulse Oximetry 98 07/06/25 08:32 Oxygen Delivery Room Air 07/06/25 08:32 Temperature 98.4 F 07/06/25 12:36 Pulse Rate 94 07/06/25 12:36 Respiratory Rate 19 07/06/25 12:36 Blood Pressure 125/86 07/06/25 12:36 Pulse Oximetry 98 07/06/25 12:36 Oxygen Delivery Room Air 07/06/25 08:43 Medical Decision Making MDM Narrative Medical decision making narrative: 25-year-old female presents to the emergency department for evaluation for seizure. Patient states she was having nausea and vomiting yesterday and today and had been unable to take her medication. On re-evaluation patient states she does feel improved patient is alert and orientated. Patient is currently afebrile with no leukocytosis and hemoglobin of 13.82. Patient has a INR of 1.1 and does have some mild elevation and T bili AST and ALT but these are not new for her. No evidence of urinary tract infection. Patient was positive for cannabinoids. Patient does admit to daily THC use and patient does admit to having episodes of nausea and vomiting approximately once a week. Patient was educated on cannabinoid hyperemesis syndrome and patient will be provided antiemetics for home. Patient was encouraged to refrain from THC. Patient states she does follow-up with Dr. Akins, and patient was encouraged to call them for follow-up. Patient was well-appearing at time of discharge. Differential Diagnosis Differential Diagnosis: Cannabinoid hyperemesis syndrome, transient nausea and vomiting, medication noncompliance, seizure, breakthrough seizure, UTI, COVID, RSV, influenza, pneumonia Vital Signs Vital Signs: Vital Signs Temperature 98 F 07/06/25 08:32 Pulse Rate 99 07/06/25 08:32 Respiratory Rate 15 07/06/25 08:32 Blood Pressure 122/99 H 07/06/25 08:32 Pulse Oximetry 98 07/06/25 08:32 Oxygen Delivery Room Air 07/06/25 08:32 Temperature 98.4 F 07/06/25 12:36 Pulse Rate 94 07/06/25 12:36 Respiratory Rate 19 07/06/25 12:36 Blood Pressure 125/86 07/06/25 12:36 Pulse Oximetry 98 07/06/25 12:36 Oxygen Delivery Room Air 07/06/25 08:43 Lab Data Lab results reviewed: Yes I reviewed the patient's lab results. 07/06/25 09:03 07/06/25 09:03 Labs: Lab Results 07/06/25 07/06/25 07/06/25 Range/Units 09:03 09:24 11:50 WBC 7.8 (4.5-10.0) K/mm3 RBC 4.44 (4.2-5.4) M/mm3 Hgb 13.8 (12.0-15.0) g/dL Hct 41.1 (37.0-47.0) % MCV 92.6 (80-100) fl MCH 31.1 (26-34) pg MCHC 33.6 (32-36) g/dl RDW 14.7 H (11.5-14.5) % Plt Count 296 (150-375) k/mm3 MPV 9.6 (7.4-10.4) fl Immature Gran % (Auto) 0.4 (0-0.5) % Neut % (Auto) 75.7 H (45.5-73.1) % Lymph % (Auto) 18.5 (18.3-44.2) % [place] % (Auto) 4.6 (2.6-8.5) % Eos % (Auto) 0.3 (0-4.4) % Baso % (Auto) 0.5 (0.2-1.2) % Lymph # (Auto) 1.44 (0.9-3.2) K/mm3 [place] # (Auto) 0.4 (0.1-0.6) K/mm3 Eos # (Auto) 0.0 (0-0.3) K/mm3 Baso # (Auto) 0.0 (0.0-0.1) K/mm3 Abs Immat Gran (auto) 0.03 (0.00-0.031) K/mm3 Absolute Neuts (auto) 5.9 (1.3-6.7) K/mm3 Absolute Nucleated RBC 0.000 (0.0-0.012) K/mm3 Nucleated RBC % 0.0 (0.0-0.2) % PT 14.3 (11.1-14.7) Seconds INR 1.1 APTT 22.2 L (22.3-36.8) Seconds Sodium 133 L (137-145) mmol/L Potassium 3.6 (3.4-5.0) mmol/L Chloride 101 (98-107) mmol/L Carbon Dioxide 11 L (22-30) mmol/L Anion Gap 21 H (4-12) mmol/L BUN 13 D (7-17) mg/dL Creatinine 0.98 (0.7-1.0) mg/dL Estim Creat Clear Calc 70 ml/min Estimated GFR > 60 (59 - ) Glucose 183 H (65-110) mg/dL Lactic Acid 2.7 H 0.5 L (0.7-2.0) mmol/L Calcium 9.1 (8.4-10.2) mg/dL Total Bilirubin 1.8 H (0.2-1.3) mg/dL AST 66 H (14-36) U/L ALT 54 H (6-35) U/L Alkaline Phosphatase 77 (38-126) U/L Total Protein 8.8 H (6.3-8.2) g/dL Albumin 5.2 H (3.5-5.1) g/dL Urine Color Yellow (Yellow) Urine Appearance Clear (Clear) Urine pH 5.5 (5.0-9.0) Ur Specific [place] 1.026 (1.001-1.035) Urine Protein 2+ H (Negative) mg/dL Urine Glucose (UA) Negative (Negative) mg/dL Urine Ketones 3+ H (Negative) mg/dL Ur Blood (Man) 2+ H (Negative) Urine Nitrate Negative (Negative) Urine Bilirubin Negative (Negative) Urine Urobilinogen 0.2 (<2.0) mg/dL Add Ur Microanalysis Reviewed Leukocyte Esterase Rfl Negative (Negative) PAVITHRA/UL Urine RBC 0-2 (0-2) /hpf Urine WBC 0-5 (0-3) /hpf Ur Squamous Epith Cells Few (Few) /hpf Urine Bacteria 1+ H /hpf Urine Casts 6-10 Hyaline Casts Present (None) /lpf Urine Opiates Screen Negative (Negative) Urine Methadone Screen Negative (Negative) Ur Barbiturates Screen Negative (Negative) Ur Phencyclidine Scrn Negative (Negative) Ur Amphetamine Screen Negative (Negative) U Benzodiazepines Scrn Negative (Negative) Urine Cocaine Screen Negative (Negative) U Cannabinoids Screen Positive A (Negative) Imaging Data Radiologist's impression: Impressions Head CT 07/06/25 10:07 IMPRESSION: 1. Stable appearance of a moderate-sized region of encephalomalacia in the anterior left temporal lobe most likely related to prior surgery with overlying left craniectomy although differential would include sequela of old infarct. Correlate with surgical history. 2. No acute intracranial process. Discharge Plan Discharge Clinical Impression: Cannabinoid hyperemesis syndrome, Breakthrough seizure Patient Disposition: Home Condition: Stable Instructions: Antibiotic Form, Epilepsy (ED) Additional Instructions: Your frequent nausea and vomiting may be caused by your THC use. Educate yourself on cannabinoid hyperemesis syndrome. I do recommend refraining from THC use for at least 1 consecutive month. Zofran and Reglan as needed for nausea control. Have close follow-up with neurology. If you have any worsening symptoms then please call or return to the emergency department. Patient Language: Telugu Prescriptions: New ondansetron 4 mg tablet,disintegrating 4 mg PO Q8H PRN (Reason: nausea and vomiting) Qty: 14 0RF metoclopramide HCl [Reglan] 10 mg tablet 10 mg PO Q6H PRN (Reason: nausea and vomiting) Qty: 14 0RF No Action lacosamide 100 mg tablet 100 mg PO Q12H Qty: 14 0RF Rx Instructions: after 100 mg twice a day increase to 150 mg twice a day lamotrigine [Lamictal] 100 mg tablet 200 mg PO QAM Qty: 30 0RF lamotrigine [Lamictal] 100 mg tablet 300 mg PO QHS Qty: 30 0RF clonidine HCl 0.1 mg tablet 0.1 mg PO BID quetiapine 200 mg tablet 200 mg PO HS escitalopram oxalate 5 mg tablet 5 mg PO DAILY ondansetron 4 mg tablet,disintegrating 4 mg PO Q8H PRN (Reason: nausea and vomiting) Qty: 10 0RF lacosamide 150 mg tablet 150 mg PO Q12H Qty: 60 5RF Follow-up/Referrals: Kathya Boyer, CCT [Primary Care Provider, Nursing]
[2025-07-06 09:12] LABS: Hematocrit 41.1 % (37.0-47.0); Hemoglobin 13.8 g/dL (12.0-15.0); Immature Granulocyte Percent A 0.4 % (0-0.5); Lymphocytes Absolute Auto 1.44 K/mm3 (0.9-3.2); Mean Corpuscular HGB Conc 33.6 g/dl (32-36); Mean Corpuscular Hemoglobin 31.1 pg (26-34); Mean Corpuscular Volume 92.6 fl (80-100); Nucleated Red Blood Cells Absolute Auto 0.000 K/mm3 (0.0-0.012); Nucleated Red Blood Cells Perc 0.0 % (0.0-0.2); Platelet Count Result 296 k/mm3 (150-375); Red Blood Count 4.44 M/mm3 (4.2-5.4); White Blood Count 7.8 K/mm3 (4.5-10.0)
--- NOTE | 2025-07-06 09:17 | PC.NURSE ---
Pt boyfriend at bedside states both seizures were grand mal seizures and that the first one lasted around 45 seconds and that the second one lasted 1 minute
[2025-07-06 09:24] LABS: Alanine Aminotransferase 54 U/L (6-35); Albumin Level 5.2 g/dL (3.5-5.1); Alkaline Phosphatase 77 U/L (38-126); Anion Gap 21 mmol/L (4-12); Aspartate Amino Transferase 66 U/L (14-36); Bilirubin,Total 1.8 mg/dL (0.2-1.3); Blood Urea Nitrogen 13 mg/dL (7-17); Calcium 9.1 mg/dL (8.4-10.2); Carbon Dioxide 11 mmol/L (22-30); Chloride 101 mmol/L (98-107); Estimated CRCL calculation 70 ml/min; Estimated Glomerular Filt Rate > 60; Glucose 183 mg/dL (65-110); Potassium 3.6 mmol/L (3.4-5.0); Sodium 133 mmol/L (137-145); Total Protein 8.8 g/dL (6.3-8.2)
[2025-07-06 09:26] LABS: INR 1.1; Prothrombin Time 14.3 Seconds (11.1-14.7)
[2025-07-06 09:27] LABS: Add Urine Microscopic? YES; Appearance Urine Clear (Clear); Glucose Urine UA Negative (Negative); Leukocyte Esterase Ur Negative LEU/UL (Negative); Need Manual Microscopic Reviewed; Nitrate Urine Negative (Negative); Partial Thromboplastin Time 22.2 Seconds (22.3-36.8); Specific Grav Ur 1.026 (1.001-1.035)
[2025-07-06] MEDS: MIDAZOLAM HCL (*CRX) 2 MG/2 ML VIAL IV PUSH (09:27)
[2025-07-06] MEDS: LACOSAMIDE (*CRX) 100 MG TABLET PO (09:29)
[2025-07-06 09:30] LABS: Cannabinoid Screen Urine Positive (Negative)
--- OUTSIDE RECORDS SUMMARY | 2025-07-06 09:44 | XMS_ITS | Patient Health Record ---
Author Organization [facility] Address [address] [facility] [address] [place] [address] Care Team Providers Care Violin Repairer Name Role Phone Bea Sanz Unavailable [phone] Reason For Referral No Information Medications Medication SIG (Take, Route, Frequency, Duration) Notes Start Date End Date Status KYLEENA 17.5 MCG/24 HR (UP TO 5 YEARS) 19.5 MG INTRAUTERINE DEVICE *Reorder from [facility] for eRx and Interaction Alerts* 03/18/2024 Active LACOSAMIDE 100 MG TABLET *[facility] for eRx and Interaction Alerts* 03/18/2024 Active valACYclovir HCl 1 GM Tablet Oral 03/18/2024 Active Escitalopram Oxalate 5 MG Tablet Oral 03/18/2024 Active lamoTRIgine 150 MG Tablet Oral 03/18/2024 Active QUEtiapine Fumarate 25 MG Tablet Oral 03/18/2024 Active QUEtiapine Fumarate 200 MG Tablet Oral; Duration: 30 days 03/18/2024 Active Ondansetron 4 MG Tablet Disintegrating Oral 03/18/2024 Active Betamethasone Dipropionate 0.05 % Lotion External 03/18/2024 Active Famotidine 20 MG Tablet Oral 03/18/2024 Active cloNIDine HCl 0.1 MG Tablet Oral 03/18/2024 Active lamoTRIgine 200 MG Tablet Oral 03/18/2024 Active traMADol HCl 50 MG Tablet Oral 03/18/2024 Active Immunizations Vaccine Route Administration [...] 04/27/2001 Adminis tered Tdap Unknown 08/03/2012 Administered Social History Social History Additional Details Category Social Info Options Details Migrated Social History Migrated Social History Alcohol Intake: Occasional 01/18/2021,Tobacco Years: Never smoker 01/18/2021 Encounters Encounter Location Date Provider Diagnosis [address] [facility] [address] [place] [address] 08/20/2024 Bea Sanz Plan Of Treatment No Information Insurance Providers Payer Name Payer Address Payer Phone Subscriber Number Group Number Insured Name Patient Relationship to Insured Coverage Start Date Coverage End Date Mobile [facility] [address] [place] [address] [id number] JAYDA BATISTA Self - patient is the insured Medical (General) History Surgical History Surgery Date(Month/Year) Reconstructive surgery 01/13/2011 Cosmetic surgery 02/04/2017 Neurosurgery 05/16/2010 Any surgical history 06/28/2012
--- OUTSIDE RECORDS SUMMARY | 2025-07-06 09:44 | XMS_ITS | Clinical Summary ---
Author Organization [facility] Address [address] [place] [address] Care Team Providers Care Malter Operator Name Role Phone Sabrina Boyer PA-C Primary Care Provider [phone] Allergies Active Allergy Reactions Criticality Noted Date [...] 4:10 PM CDT Height 165.1 cm (5' 5) 08/01/2023 4:10 PM CDT Body Mass Index [...] patient's age to complete this topic Insurance [facility] Care Teams Malter Operator Relationship Specialty Start Date End Date Sabrina Boyer PA-C [address] [place] [address] PCP - General PHYSICIAN LINE PATROLMAN 04/20/23
[2025-07-06 10:37] VITALS: BP 144/90; PULSE 84; RESP 16; O2SAT 98
[2025-07-06 11:18] VITALS: BP 111/79; PULSE 104; RESP 15; O2SAT 97
[2025-07-06 11:51] VITALS: BP 131/90; PULSE 105; RESP 16; O2SAT 97
[2025-07-06 12:36] VITALS: BP 125/86; PULSE 94; RESP 19; TEMP 36.9; O2SAT 98
== END 2025-07-06 12:43 | disposition home or self-care (01) ==
PROVIDERS: Emergency Provider Emergency Medicine
DX: G40.909 Epilepsy, unspecified, not intractable, without status epilepticus (principal); R11.2 Nausea with vomiting, unspecified; F12.90 Cannabis use, unspecified, uncomplicated; Z87.820 Personal history of traumatic brain injury; Z79.899 Other long term (current) drug therapy
CPT/HCPCS: 36415; 70450; 80053; 80307; 81001; 83605; 85025; 85610; 85730; 93005; 96361; 96374; 96375; 99284; A9270; J2250; J2765; J7120

== ENCOUNTER 2025-09-23 08:54 | Emergency (ER) | payer BC, SELFPAY ==
--- NOTE | ~2025-09-23 | CT_ITS ---
EXAMINATION: CT brain wo con DATE: 09/23/2025 10:03 INDICATION: Seizure and headache TECHNIQUE: Computed tomography (CT) of the head was performed without intravenous contrast. The dose-length product was 529.67 mGy-cm. COMPARISON: July [id number] FINDINGS: Post left frontoparietal surgical craniotomy changes with left temporal lobe encephalomalacia unchanged in appearance with no acute hemorrhage, mass effect or large acute ischemic event. Overall stable appearing exam. IMPRESSION: 1. No gross intracranial mass effect or bleed. Chronic findings as above. 2. For new onset seizure disorder or persistent/worsening headaches, correlation with MRI suggested for optimal sensitivity. Reviewed, dictated and finalized at location A. NTIFIC RESEARCH ASSOCIATE IMPRESSION: 1. No gross intracranial mass effect or bleed. Chronic findings as above. 2. For new onset seizure disorder or persistent/worsening headaches, correlatio n with MRI suggested for optimal sensitivity.
[2025-09-23 08:58] VITALS: BP 111/72; PULSE 105; RESP 17; TEMP 36.6; O2SAT 97
--- NOTE | 2025-09-23 09:07 | ECG_ITS ---
Test Date: 2025-09-23 09:36:34 Measurements Intervals [place] Rate: 95 P: 60 NE: 154 QRS: 79 QRSD: 91 T: 45 QT: 347 QTc: 437 Interpretive Statements SINUS RHYTHM NORMAL ECG Compared to ECG 07/06/2025 08:56:31 Sinus tachycardia no longer present Electronically Signed On 09-23-2025 15:51:24 COUNTERINTELLIGENCE AGENT by Mark Alexander M.D.
[2025-09-23 09:14] VITALS: PULSE 104
[2025-09-23 09:24] LABS: Hematocrit 41.2 % (37.0-47.0); Hemoglobin 13.8 g/dL (12.0-15.0); Immature Granulocyte Percent A 0.5 % (0-0.5); Lymphocytes Absolute Auto 1.51 K/mm3 (0.9-3.2); Mean Corpuscular HGB Conc 33.5 g/dl (32-36); Mean Corpuscular Hemoglobin 31.7 pg (26-34); Mean Corpuscular Volume 94.7 fl (80-100); Nucleated Red Blood Cells Absolute Auto 0.000 K/mm3 (0.0-0.012); Nucleated Red Blood Cells Perc 0.0 % (0.0-0.2); Platelet Count Result 337 k/mm3 (150-375); Red Blood Count 4.35 M/mm3 (4.2-5.4); White Blood Count 9.7 K/mm3 (4.5-10.0)
[2025-09-23] MEDS: ONDANSETRON INJ 4 MG/2 ML VIAL IV PUSH (09:24)
[2025-09-23] MEDS: SODIUM CHLORIDE 0.9% IV 1,000 ML 999 ML IV CONT (09:30)
[2025-09-23 09:35] LABS: Alanine Aminotransferase 23 U/L (6-35); Albumin Level 4.9 g/dL (3.5-5.1); Alkaline Phosphatase 64 U/L (38-126); Anion Gap 16 mmol/L (4-12); Aspartate Amino Transferase 27 U/L (14-36); Bilirubin,Total 0.6 mg/dL (0.2-1.3); Blood Urea Nitrogen 12 mg/dL (7-17); Calcium 9.3 mg/dL (8.4-10.2); Carbon Dioxide 15 mmol/L (22-30); Chloride 104 mmol/L (98-107); Estimated CRCL calculation 77 ml/min; Estimated Glomerular Filt Rate > 60; Glucose 122 mg/dL (65-110); Magnesium 1.8 mg/dL (1.6-2.3); Potassium 4.1 mmol/L (3.4-5.0); Sodium 135 mmol/L (137-145); Total Protein 8.0 g/dL (6.3-8.2)
[2025-09-23] MEDS: ACETAMINOPHEN 500 MG TABLET 1000 MG PO (10:06)
--- NOTE | 2025-09-23 10:17 | ED_ITS ---
HPI - Seizure General Chief Complaint: Seizure Stated Complaint: seizure Time Seen by Provider: 09/23/25 09:10 Source: patient and family Mode of arrival: EMS Limitations: no limitations History of Present Illness HPI Narrative: Patient is a 25-year-old female who presents the ED via EMS with report of a seizure. 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 Is on Vimpat 150 mg b.i.d. as well as lamotrigine 200 mg b.i.d.. She denies missed any doses recently. Did not take her normal meds yet this morning. Her friend at bedside reports she was making breakfast this morning when she reported feeling shravan vu and then had approx 45 second tonic clonic seizure. States this is typical of her normal seizures. The seizure resolved on its own, but patient was postictal afterwards. EMS was called. She did not fall to the ground or hit her head. Upon my evaluation, patient is A&O x4 but complains of a headache and nausea. Follows with Neurology at [facility]. Related Data Home Medications ?Medication ?Instructions ?Recorded ?Confirmed ?Last Taken ?Type clonidine HCl 0.1 mg tablet 0.1 mg PO BID 03/28/24 Unknown History escitalopram oxalate 5 mg tablet 5 mg PO DAILY 4 01/22/25 Unknown History quetiapine 200 mg tablet 200 mg PO HS 03/28/24 Unknown History Allergies Allergy/AdvReac Type Severity Reaction Status Date / Time levetiracetam (From [facility]) Allergy Itching,Wilfred Verified 07/06/25 08:43 sea Sulfa (Sulfonamide AdvReac Unknown Verified 07/06/25 08:43 Antibiotics) vancomycin AdvReac Other Verified 07/06/25 08:43 Review of Systems 2 Review of Systems: All systems reviewed & are unremarkable except as noted in HPI. 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 Elevated INR Suicidal overdose Liver failure, acute Family History Family History Sibling Depression Grandparent Cerebrovascular accident Social History Social History Social History: caffeine use Smoking status: Never smoker Tobacco type: e-cigarettes/vaping Alcohol intake: current Alcohol use details: Varies Substance use: current Substance use type: marijuana Do You Feel Safe in your Home?: No Lack of Transportation: No Lack of Food: Never True Current Housing: I Have Housing Concerned About Future Housing: No Difficulty Paying Gas/Electric Bills: No Difficulty Paying for Meds: No Currently Unemployed: No Education: Associate Degree Difficulty w/ Childcare or Family Care: No Spiritual care concerns: No Exam 2 Narrative: GENERAL: Well appearing, well-nourished, non-toxic, in no acute distress. HEAD: Normocephalic, atraumatic. Chronic scar to L frontal region EYES: PERRL/EOMI, conjunctivae clear bilaterally. No nystagmus. NECK: Supple. No meningeal signs. RESPIRATORY: Airway patent, respirations nonlabored. Clear to auscultation bilaterally, no rales, rhonchi, wheezing. CARDIOVASCULAR: Regular rate and rhythm without murmurs, rubs, or gallops. Peripheral pulses 2+ and equal bilaterally. MUSCULOSKELETAL: Moves all extremities. No gross deformities. SKIN: Warm, dry, normal color. No rashes. NEURO: A&O X3. Speech clear. Follows commands. CN II-XII intact. Sensation grossly intact. Steady gait. No ataxic movements. Strength 5/5 in upper and lower extremities bilaterally. No pronator drift. Equal fuel testing technician strength bilaterally. PSYCHIATRIC: Appropriate mood and affect. Normal interaction. Course Vital Signs Vital signs: Vital Signs Temperature 97.9 F 09/23/25 08:58 Pulse Rate 105 H 09/23/25 08:58 Respiratory Rate 17 09/23/25 08:58 Blood Pressure 111/72 09/23/25 08:58 Pulse Oximetry 97 09/23/25 08:58 Oxygen Delivery Room Air 09/23/25 08:58 Temperature 97.9 F 09/23/25 08:58 Pulse Rate 80 09/23/25 12:56 Respiratory Rate 16 09/23/25 12:56 Blood Pressure 113/74 09/23/25 12:56 Pulse Oximetry 99 09/23/25 12:56 Oxygen Delivery Room Air 09/23/25 09:07 MDM - Seizure MDM Narrative Medical decision making narrative: Patient presented to ED with breakthrough seizure. History of seizure disorder, currently on lamotrigine and Vimpat. Denies missing any doses. Did not take her normal meds yet this morning as she was getting ready to make breakfast. She was given her home morning doses in the ED. Vital signs stable upon arrival. Fluids initiated. Patient neurologically intact upon my evaluation. A&O x4, reporting headache and nausea. Given Tylenol, Zofran. She does report typically having nausea after her seizures. She is able to drink water and tolerate p.o. intake. Initial lactic acid 5.1. Consistent with acute seizure activity. Fluids are ongoing. CT brain without acute findings. Lamotrigine level sent out Basic laboratory studies are otherwise fairly unremarkable, there is evidence of dehydration on CMP. UA with possible infection. Trace leuk esterase, 11-20 WBC, 2+ urine bacteria. Sent for culture. Will treat as this may have contributed to breakthrough seizure today. Will start on Keflex. Repeat lactic acid after fluids 0.9. Anion gap closed on repeat BMP. Patient was monitored in the ED for several hours without recurrence of symptoms. She remains neurologically intact. Remains stable. No evidence of hemodynamic instability. States she feels completely back to her baseline. States she is ready to go home. Advised patient to take her medications as prescribed, emphasized the importance of compliance with seizure medication. Also emphasized importance of following up with Neurology team for continued management. Discussed strict return precautions. She is in agreement with plan. Discharged in stable condition. Medical Records Attestation: I reviewed the patient's medical records. Lab Data Attestation: I reviewed the patient's lab results. 09/23/25 09:14 09/23/25 11:48 Labs: Lab Results 09/23/25 09/23/25 09/23/25 Range/Units 09:14 11:39 11:48 WBC 9.7 (4.5-10.0) K/mm3 RBC 4.35 (4.2-5.4) M/mm3 Hgb 13.8 (12.0-15.0) g/dL Hct 41.2 (37.0-47.0) % MCV 94.7 (80-100) fl MCH 31.7 (26-34) pg MCHC 33.5 (32-36) g/dl RDW 13.0 (11.5-14.5) % Plt Count 337 (150-375) k/mm3 MPV 9.3 (7.4-10.4) fl Immature Gran % (Auto) 0.5 (0-0.5) % Neut % (Auto) 77.9 H (45.5-73.1) % Lymph % (Auto) 15.6 L (18.3-44.2) % [place] % (Auto) 4.9 (2.6-8.5) % Eos % (Auto) 0.5 (0-4.4) % Baso % (Auto) 0.6 (0.2-1.2) % Lymph # (Auto) 1.51 (0.9-3.2) K/mm3 [place] # (Auto) 0.5 (0.1-0.6) K/mm3 Eos # (Auto) 0.1 (0-0.3) K/mm3 Baso # (Auto) 0.1 (0.0-0.1) K/mm3 Abs Immat Gran (auto) 0.05 H (0.00-0.031) K/mm3 Absolute Neuts (auto) 7.6 H (1.3-6.7) K/mm3 Absolute Nucleated RBC 0.000 (0.0-0.012) K/mm3 Nucleated RBC % 0.0 (0.0-0.2) % Sodium 135 L 135 L (137-145) mmol/L Potassium 4.1 4.2 (3.4-5.0) mmol/L Chloride 104 107 (98-107) mmol/L Carbon Dioxide 15 L 18 L (22-30) mmol/L Anion Gap 16 H 10 (4-12) mmol/L BUN 12 11 (7-17) mg/dL Creatinine 0.88 0.71 (0.7-1.0) mg/dL Estim Creat Clear Calc 77 94 ml/min Estimated GFR > 60 > 60 (59 - ) Glucose 122 H 77 (65-110) mg/dL Lactic Acid 5.1 H* 0.9 (0.7-2.0) mmol/L Calcium 9.3 8.3 L (8.4-10.2) mg/dL Magnesium 1.8 (1.6-2.3) mg/dL Total Bilirubin 0.6 (0.2-1.3) mg/dL AST 27 (14-36) U/L ALT 23 (6-35) U/L Alkaline Phosphatase 64 (38-126) U/L Total Protein 8.0 (6.3-8.2) g/dL Albumin 4.9 (3.5-5.1) g/dL Urine Color Yellow (Yellow) Urine Appearance Cloudy H (Clear) Urine pH 5.0 (5.0-9.0) Ur Specific [place] 1.019 (1.001-1.035) Urine Protein 1+ H (Negative) mg/dL Urine Glucose (UA) Negative (Negative) mg/dL Urine Ketones 2+ H (Negative) mg/dL Ur Blood (Man) 2+ H (Negative) Urine Nitrate Negative (Negative) Urine Bilirubin Negative (Negative) Urine Urobilinogen 0.2 (<2.0) mg/dL Leukocyte Esterase Rfl Trace H (Negative) PAVITHRA/UL Urine RBC 0-2 (0-2) /hpf Urine WBC 11-20 H (0-3) /hpf Ur Squamous Epith Cells Moderate (Few) /hpf Urine Bacteria 2+ H /hpf Urine Casts 3-5 Lamotrigine Pending Imaging Data Attestation: I personally reviewed and interpreted this imaging study as follows: Radiologist's impression: ITS Impressions Head CT 09/23/25 10:05 IMPRESSION: 1. No gross intracranial mass effect or bleed. Chronic findings as above. 2. For new onset seizure disorder or persistent/worsening headaches, correlation with MRI suggested for optimal sensitivity. ECG Data EKG #1: Attestation: I personally reviewed and interpreted this ECG as follows: ECG completion date: 09/23/25 ECG completion time: 09:36 EKG Interpretation: normal rate (95), sinus rhythm and no ST changes Discharge Plan Discharge Clinical Impression: Breakthrough seizure UTI (urinary tract infection) Qualifiers: Urinary tract infection type: acute cystitis Hematuria presence: without hematuria Qualified Code(s): N30.00 - Acute cystitis without hematuria Patient Disposition: Home Condition: Stable Instructions: Antibiotic Form, Urinary Tract Infection in Women (ED), Recurrent Seizures in Adults (ED) Additional Instructions: Take antibiotics as prescribed for urinary tract infection. Stay well hydrated. Utilize Zofran as needed for further nausea. Continue home seizure medications. It is important you do not miss any doses. Follow-up with your primary care doctor and neurologist for further evaluation. Return to the ED for worsening or severe symptoms, unable to keep down food or drink, severe dizziness, severe pain, difficulty breathing, persistent fevers, or any other symptoms of concern. Patient Language: Polish Prescriptions: New cephalexin 500 mg capsule 500 mg PO Q12H 7 Days Qty: 14 0RF ondansetron 4 mg tablet,disintegrating 4 mg PO Q8H PRN (Reason: nausea and vomiting) Qty: 15 0RF No Action lacosamide 100 mg tablet 100 mg PO Q12H Qty: 14 0RF Rx Instructions: after 100 mg twice a day increase to 150 mg twice a day lamotrigine [Lamictal] 100 mg tablet 200 mg PO QAM Qty: 30 0RF lamotrigine [Lamictal] 100 mg tablet 300 mg PO QHS Qty: 30 0RF clonidine HCl 0.1 mg tablet 0.1 mg PO BID quetiapine 200 mg tablet 200 mg PO HS escitalopram oxalate 5 mg tablet 5 mg PO DAILY ondansetron 4 mg tablet,disintegrating 4 mg PO Q8H PRN (Reason: nausea and vomiting) Qty: 10 0RF ondansetron 4 mg tablet,disintegrating 4 mg PO Q8H PRN (Reason: nausea and vomiting) Qty: 14 0RF metoclopramide HCl [Reglan] 10 mg tablet 10 mg PO Q6H PRN (Reason: nausea and vomiting) Qty: 14 0RF lacosamide 150 mg tablet 150 mg PO Q12H Qty: 60 5RF Follow-up/Referrals: Rosalind,SHARI Bhatt [Primary Care Provider, Unknown] Time of Disposition: 12:38
--- NOTE | 2025-09-23 10:23 | PC.NURSE ---
Pt took home medications per provider instrution Lacosamide 150mg PO and Lamotrigine 200mg PO.
[2025-09-23 11:57] VITALS: BP 111/73; PULSE 86; RESP 13; O2SAT 100
[2025-09-23 12:01] LABS: Add Urine Microscopic? YES; Appearance Urine Cloudy (Clear); Glucose Urine UA Negative (Negative); Leukocyte Esterase Ur Trace LEU/UL (Negative); Nitrate Urine Negative (Negative); Specific Grav Ur 1.019 (1.001-1.035)
[2025-09-23 12:08] LABS: Anion Gap 10 mmol/L (4-12); Blood Urea Nitrogen 11 mg/dL (7-17); Calcium 8.3 mg/dL (8.4-10.2); Carbon Dioxide 18 mmol/L (22-30); Chloride 107 mmol/L (98-107); Estimated CRCL calculation 94 ml/min; Estimated Glomerular Filt Rate > 60; Glucose 77 mg/dL (65-110); Potassium 4.2 mmol/L (3.4-5.0); Sodium 135 mmol/L (137-145)
[2025-09-23 12:56] VITALS: BP 113/74; PULSE 80; RESP 16; O2SAT 99
== END 2025-09-23 12:58 | disposition home or self-care (01) ==
PROVIDERS: Emergency Provider Physician Assistant; PCP Physician Assistant
DX: G40.909 Epilepsy, unspecified, not intractable, without status epilepticus (principal); N30.00 Acute cystitis without hematuria; F17.210 Nicotine dependence, cigarettes, uncomplicated; Z87.820 Personal history of traumatic brain injury; Z87.728 Personal history of other specified (corrected) congenital malformations of nervous system and sense organs; Z79.899 Other long term (current) drug therapy
CPT/HCPCS: 36415; 70450; 80048; 80053; 80175; 81001; 83605; 83735; 85025; 93005; 96361; 96374; 99284; A9270; J2405; J7030

== ENCOUNTER 2025-10-22 11:15 | Emergency (ER) | payer BC, SELFPAY ==
[2025-10-22 11:23] VITALS: BP 125/78; PULSE 110; RESP 14; TEMP 36.6; O2SAT 98
[2025-10-22 11:27] VITALS: BP 125/78; PULSE 106; RESP 17; O2SAT 97
[2025-10-22 11:30] VITALS: BP 100/73; PULSE 108; RESP 20; O2SAT 96
--- NOTE | 2025-10-22 11:40 | ECG_ITS ---
Test Date: 2025-10-22 11:48:40 Measurements Intervals [place] Rate: 88 P: 49 AR: 141 QRS: 72 QRSD: 90 T: 43 QT: 348 QTc: 423 Interpretive Statements SINUS RHYTHM NORMAL ECG Compared to ECG 09/23/2025 09:36:34 No significant changes Electronically Signed On 10-22-2025 12:20:14 REFINERY OPERATOR HELPER by Curtis Cabral D.O.
[2025-10-22 12:08] LABS: Hematocrit 40.8 % (37.0-47.0); Hemoglobin 13.7 g/dL (12.0-15.0); Immature Granulocyte Percent A 0.5 % (0-0.5); Lymphocytes Absolute Auto 0.63 K/mm3 (0.9-3.2); Mean Corpuscular HGB Conc 33.6 g/dl (32-36); Mean Corpuscular Hemoglobin 31.1 pg (26-34); Mean Corpuscular Volume 92.5 fl (80-100); Nucleated Red Blood Cells Absolute Auto 0.000 K/mm3 (0.0-0.012); Nucleated Red Blood Cells Perc 0.0 % (0.0-0.2); Platelet Count Result 324 k/mm3 (150-375); Red Blood Count 4.41 M/mm3 (4.2-5.4); White Blood Count 10.0 K/mm3 (4.5-10.0)
[2025-10-22 12:13] VITALS: BP 100/73; PULSE 83; RESP 19; O2SAT 99
--- NOTE | 2025-10-22 12:14 | PC.NURSE ---
Pt. able to ambulate to bathroom independently with a steady gait.
[2025-10-22 12:18] LABS: INR 1.1; Prothrombin Time 13.9 Seconds (11.1-14.7)
[2025-10-22 12:19] LABS: Partial Thromboplastin Time 22.4 Seconds (22.3-36.8)
[2025-10-22 12:28] LABS: Alanine Aminotransferase 28 U/L (6-35); Albumin Level 4.8 g/dL (3.5-5.1); Alkaline Phosphatase 58 U/L (38-126); Anion Gap 14 mmol/L (4-12); Aspartate Amino Transferase 58 U/L (14-36); Bilirubin,Total 0.9 mg/dL (0.2-1.3); Blood Urea Nitrogen 16 mg/dL (7-17); Calcium 9.3 mg/dL (8.4-10.2); Carbon Dioxide 19 mmol/L (22-30); Chloride 103 mmol/L (98-107); Estimated CRCL calculation 75 ml/min; Estimated Glomerular Filt Rate > 60; Glucose 115 mg/dL (65-110); Potassium 4.5 mmol/L (3.4-5.0); Sodium 136 mmol/L (137-145); Total Protein 7.9 g/dL (6.3-8.2)
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
--- NOTE | 2025-10-22 12:45 | PC.NURSE ---
Lab called about additional labs ordered by MD. Both medication levels are send offs.
[2025-10-22 12:50] LABS: Add Urine Microscopic? YES; Appearance Urine Clear (Clear); Glucose Urine UA Negative (Negative); Leukocyte Esterase Ur Negative LEU/UL (Negative); Need Manual Microscopic Reviewed; Nitrate Urine Negative (Negative); Specific Grav Ur 1.022 (1.001-1.035)
[2025-10-22] MEDS: SODIUM CHLORIDE 0.9% IV 1,000 ML 999 ML IV CONT (12:51)
[2025-10-22 13:01] LABS: BEDSIDEPREGUCG Negative (Negative)
[2025-10-22 13:45] VITALS: BP 132/96; PULSE 86; RESP 20; O2SAT 100
--- NOTE | 2025-10-22 13:57 | PC.NURSE ---
Iv fluids still infusing. Pt. educated to keep her arm straight. Pt. verbalized understanding.
[2025-10-22 14:40] VITALS: BP 122/72; PULSE 85; RESP 16; O2SAT 99
--- OUTSIDE RECORDS SUMMARY | 2025-10-22 14:51 | XMS_ITS | Clinical Summary ---
Author Organization [facility] Address [address] [place] [address] Care Team Providers Care Brand Specialist Name Role Phone Sabrina Boyer PA-C Primary Care Provider [phone] Allergies Active Allergy Reactions Criticality Noted Date [...] Hepatitis C 01/13/2018 COVID-19 Vaccine ( season) 2025 Influenza Adult (#1) 2025 DTaP, Tdap and Td Vaccines (8 - [...] 07/07/2017 HPV Vaccines Completed 02/07/2023, 06/07, 04/25/2018 Hepatitis A Vaccines Aged Out No long er eligible based on patient's age to complete this topic Meningococcal B Vaccine Aged Out No l onger eligible based on patient's age to complete this topic RSV Immunizations Under 20 Months Aged Out No longer eligible based on patient's age to complete this topic Insurance [facility] Care Teams Brand Specialist Relationship Specialty Start Date End Date Sabrina Boyer PA-C [address] [place] [address] PCP - General PHYSICIAN SHOP COORDINATOR 04/20/23
--- OUTSIDE RECORDS SUMMARY | 2025-10-22 14:51 | XMS_ITS | Clinical Summary ---
Author Organization [facility] Main [facility] s Address [address] [place] [address] Care Team Providers Care Scale Shooter Name Role Phone Sabrina Boyer Primary Care Provider [phone] Allergies Active Allergy Reactions Criticality Noted Date Comments Levetiracetam Other (See comments) Low 09/29/2021 Suicidal ideation Nickel Rash Medium 09/18/2020 Sulfa (Sulfonamide Antibiotics) Other (See comments),Rash,Unkno wn,Redness Medium 09/24/2019 Reaction: Sulfamethoxazole-Trimeth oprim Vancomycin Other (See comments),Rash,Unkno wn Medium 09/03/2020 Reaction: Colin syndrome Medications betamethasone dipropionate (DIPROLENE) 0.05 % lotionIndications :Dermatitis Apply topically daily as needed (dermatitis) 60 mL 1 2 Active ondansetron (Zofran) 4 mg tabletIndications :Nausea Take 1 tablet (4 mg total) by mouth every 8 (eight) hours as needed for nausea or vomiting 10 tablet 3 Active QUEtiapine (SEROquel) 200 mg tablet Take 1 tablet (200 mg total) by mouth nightly at bedtime 4 Active lamoTRIgine (LaMICtal) 100 mg tablet Take 3 tablets (300 mg total) by mouth nightly 4 Active valACYclovir (VALTREX) 1 gram tablet Take 2 tablets (2,000 mg total) by mouth 2 (two) times a day X1 day PRN Active QUEtiapine (SEROquel) 25 mg tablet Take 1 tablet (25 mg total) by mouth 2 (two) times a day as needed Active lacosamide (VIMPAT) 150 mg tablet Take 1 tablet (150 mg total) by mouth 2 (two) times a day Active lamoTRIgine (LaMICtal) 100 mg tablet Take 3 tablets (300 mg total) by mouth nightly Active thiamine (VITAMIN B1) 100 mg tablet Take 1 tablet (100 mg total) by mouth daily 30 tablet 5 Active folic acid (FOLVITE) 1 mg tablet Take 1 tablet (1 mg total) by mouth daily 30 tablet 11 5 04/08/20 26 Active Hospital, Clinic, or Other Facility Administered Medication Ordered Dose Route Frequency Start Date End Date Status etonogestreL (NEXPLANON) implant 68 mgIndications:Pregna ncy Contraception 68 mg subderm Continuous (implanted device) 05/08/2024 05/08/2027 Active Active Problems Problem Noted Date Diagnosed Date Ketoacidosis due to acute alcohol intoxication 0 04/07/2025 Dehydration 04/07/2025 Assessment & Plan (04/10/2025 1:03 PM CDT): Resolved prior to discharge after treatment with IV fluids. Discussed drinking at least 64 oz of water a day. If drinking alcohol, have a glass of water after each drink. Metabolic acidosis 04/07/2025 High anion gap metabolic acidosis 04/07/2025 Acute kidney injury 04/07/2025 Intractable nausea and vomiting 04/07/2025 Metabolic acidosis, increased anion gap 04/07/20 25 Assessment & Plan (04/10/2025 1:03 PM CDT): Resolved prior to discharge after treatment with IV fluids. Will check electrolytes again in 1 month. Dermatitis 07/01/2022 H/O cold sores 07/01/2022 Breakthrough seizure 06/25/2022 Routine adult health maintenance 06/14/2022 Overview (02/07/2023): Health Maintenance: -PCV20: N/A -Tdap vaccine: -Influenza vaccine: due -Shingles vaccine: N/A -Colonoscopy: N/A -Last WWE: 02/07/23 -Last Mammogram: N/A -Last DEXA: N/A -Last eye exam: N/A -Last MHA: N/A Anxiety with somatization 05/26/2021 Unspecified mood (affective) disorder 03/24/2021 Assessment & Plan (04/10/2025 1:03 PM CDT): Will send patient our list of behavioral health providers through a [employer] attachment. She can also reach out to [facility] to request a list of providers in network. Assessment & Plan (03/24/2021 5:37 PM CDT): [...] to scheduled appointments--LVM for Dr. 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 Continue lamotrigine and lacosamide as prescribed. Update me with any changes. Continue to follow seizure precautions. 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 Intraparenchymal hemorrhage of brain 08/19/2015 Cerebral arteriovenous malformation 08/19/2015 Arteriovenous disorder 02/22/2011 Resolved Problems Problem Noted Date Diagnosed Date Resolved Date Abdominal pain 04/07/2025 07/21/2025 History of surgical procedure 05/11/2016 06/14/2022 Encounters Date Type Department Care Team Description 07/29/2025 Telephone [facility] Family Medicine [address] [place] [phone] Sabrina Boyer PA from Last 3 Months Immunizations Immunization Administration Dates Next Due DTaP 06/20/2005, 1,2000,2000, 2000 HPV9 02/07/2023,06/26/2018,04/25/2018 Hep B / HiB 01/26/2001,2000,2000 IPV 06/20/2005,2000,2000 ,2000 Influenza, Unspecified 08/06/2023(Deferr ed: Patient Refused),08/06/2022(Deferred: Patient Refused),08/06/2022(Deferred: Patient Refused),08/06/2021(Deferred: Patient Refused) MMR 06/20/2005,01/26/2001 Meningococcal MCV4P (Menactra) 07/07/2017 Pneumococcal Conjugate 7-Valent 04/27/2001,01/26 Tdap 02/07/2023,08/03/2012 Surgical History Surgery Date Site/Laterality Comments CRANIOTOMY CEREBRAL ANGIOGRAM Right COSMETIC SURGERY 05/22 BRAIN SURGERY 04/15 Medical History Medical History Date Comments Anxiety Depression PTSD (post-traumatic stress disorder) Anemia AVM (arteriovenous malformation) Wrist fracture 02/24/2024 right Varicella Shingles Seizures (HCC) Menstrual problem 06/2012 Migraines Family History Medical History Relation Name Comments [...] Packs/Day Years Used Date Smoking Tobacco: Never Cigarettes 0.3 5 E-cigarettes Smokeless Tobacco: Never Alcohol Use Standard Drinks/Week Comments Yes 0 (1 standard drink = 0.6 oz pur e alcohol) [facility] Utilities Answer Date Recorded In the past 12 months has [employer], gas, oil, or water [employer] threatened to shut off services in your home? No 04/07/2025 Social Connection and Isolation Panel Answer Date Recorded In a typical week, how many times do you talk on the phone with family, friends, or neighbors? More than three times a week 04/07/2025 How often do you get togethe r with friends or relatives? More than three times a week 04/07/2025 How often do you attend [facility] or latter-day services? Never 04/07/2025 Do you belong to any clubs o r organizations such as anabaptism groups, unions, fraternal or athletic groups, or school groups? No 04/07/2025 How often do you attend meet ings of the clubs or organizations you belong to? Never 04/07/2025 Are you , , di vorced, , never , or living with a partner? Never 04/07/2025 AUDIT-C Answer Date Recorded Q1: How often do you have a drink containing alc ohol? 2-3 times a week 04/07/2025 Q2: How many drinks containi ng alcohol do you have on a typical day when you are drinking? 5 or 6 04/07/2025 Q3: How often do you have si x or more drinks on one occasion? Weekly 04/07/2025 Overall Financial Resource Strain (CARDIA) Answe r Date Recorded How hard is it for you to pa y for the very basics like food, housing, medical care, and heating? Not very hard 04/07/2025 PHQ-2 Answer Date Recorded PHQ-2 Total Score (If total score is 3 or more points, staff should administer the PHQ-9) 4 07/21/2025 Hunger Vital Sign Answer Date Recorded Within the past 12 months, y ou worried that your food would run out before you got the money to buy more. Never true 04/07/20 25 Within the past 12 months, t he food you bought just didn't last and you didn't have money to get more. Never true 04/07/2025 PRAPARE - Transportation Answer Date Re corded In the past 12 months, has l ack of transportation kept you from medical appointments or from getting medications? No 12/2024 In the past 12 months, has l ack of transportation kept you from meetings, work, or from getting things needed for daily living? No 04/07/2025 PHQ-9 Answer Date Recorded PHQ-9 Total Score 19 07/21/2025 Housing Stability Vital Sign Answer Sunny e Recorded In the last 12 months, was t here a time when you were not able to pay the mortgage or rent on time? No 04/07/2025 In the past 12 months, how m any times have you moved where you were living? 0 04/07/2025 At any time in the past 12 m [facility], were you homeless or living in a halfway (including now)? No 04/07/2025 Personal Safety Answer Date Recorded Have you ever been in or are you currently in a harmful physical or emotional relationship or is someone making you feel afraid or unsafe? 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 Not on file Not on file Obstetrics History Para Term AB IAB SAB Ectopic Multiple Livin g Live Births 0 0 0 0 0 0 0 0 0 0 0 Last Filed Vital Signs Vital Sign Reading Time Taken Comments Blood Pressure 112/80 07/21/2025 10:26 AM CDT Pulse 118 07/21/2025 10:26 AM CDT Temperature 36.8 C (98.3 F) 07/21/2025 10:26 AM CDT Respiratory Rate 18 07/21/2025 10:2 6 AM CDT Oxygen Saturation 99% 07/21/2025 10: 26 AM CDT Inhaled Oxygen Concentration - - Weight 65.2 kg (143 lb 12.8 oz) 025 10:26 AM CDT Height 165.1 cm (5' 5) 07/21/2025 10:2 6 AM CDT Body Mass Index 23.93 07/21/2025 10:26 AM CDT Plan of Treatment Health Maintenance Due Date Last Done Comments Cervical Cancer Screening 02/08/2024 02/07/2023 Regular Well Visit/Exam 18-64 02/08/2024 02/07/2023 Influenza Vaccine (#1) 2025 Depression Screening 07/21/2026 07/21/2025, 07/21/2025, 04/10/2025, Additional history exists DTaP/Tdap/Td Vaccine (8 - Td or Tdap) [...] has been evaluated with computer assisted technology. 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 gas plant worker Sandy Stone Comment: LIDYA SOLORIO(ASCP) CT screening location: [place] [address] [facility] [place] Cast[place] [address] Comment Sandy Stone Comment: EXPLANATORY NOTE: The [...] CYTOLOGY ORDERABLES F inal Result SANDY Sandy Tutor AssignmentMoisésKamar [facility] [place] Cadet [phone] * Hepatitis C antibody (09/02/2022 6:19 PM [...] - GENERAL ORDER MINERVA Final Result DIEUDONNE [address] [facility] Department [place] [address] from Last 3 Months or Most Recently Relevant to Health Maintenance Insurance [employer] [place] [facility] Advance Directives For more information, please contact: [phone] Documents on File Type Date Recorded Patient Electronic Court Recorder Expl anation ADVANCE DIRECTIVE 11/30/2020 2:14 PM mikki batista [email or web address] .pdf * Full Code (Latest Code Status on File) Date Activated Date Inactivated Comments 04/07/2025 5:52 AM 04/08/2025 5:44 PM * Full Code Date Activated Date Inactivated Comments 06/25/2022 8:58 PM 06/27/2022 9:39 PM * Full Code Date Activated Date Inactivated Comments 02/23/2021 7:56 AM 02/26/2021 9:28 PM Care Teams Scale Shooter Relationship Specialty Start Date End Date Sabrina Boyer PA [address] [place] [address] PCP - General Family Medicine 06/06/22
== END 2025-10-22 14:54 | disposition home or self-care (01) ==
PROVIDERS: Emergency Medicine; Emergency Provider Student in an Organized Health Care Education/Training Program; PCP Physician Assistant
DX: Z04.1 Encounter for examination and observation following transport accident (principal); G40.909 Epilepsy, unspecified, not intractable, without status epilepticus; Q27.30 Arteriovenous malformation, site unspecified; Z87.820 Personal history of traumatic brain injury; V49.9XXA Car occupant (driver) (passenger) injured in unspecified traffic accident, initial encounter
CPT/HCPCS: 36415; 80053; 80175; 81001; 81025; 83605; 85025; 85610; 85730; 93005; 96360; 99283; J7030